=== PATIENT | male | born 1955 | race Two or more races ===

== ENCOUNTER 2016-05-04 14:26 | Observation (INO) | payer BC ==
[2016-05-04 14:34] VITALS: BMI 37.3
--- NOTE | 2016-05-04 15:40 | PDOC ---
History of Present Illness - General History Source: Patient Exam Limitations: No Limitations - History of Present Illness Initial Comments: 05/04/16 16:20 Mr. Grijalva is a 60 y/o male with a PMH of HTN, BPH, and chronic back pain presenting to the ED today from his PCP's office complaining of atypical Chest Pain and dizziness that occurred this morning. Pt. states that at approximately 10:00 he felt dizzy and light headed almost to the point of syncope. He had associated right sided chest pain with this episode. This has never happened to him before. Pt. states that he had a stress test approximately 2 years ago and was 'normal' at that time. Admits to reproducible chest pain with coughing or palpation. Denies LOC, falling, head, neck, back pain. He denies fevers, chills , palpitations, edema, cough, SOB, dyspnea, N/V/D. He has not traveled recently and received his flu shot this year. 05/04/16 18:31 <Nicolasa Mario - Last Filed: 05/04/16 19:02> <Cass Mendes - Last Filed: 05/05/16 19:21> - General Chief Complaint: Chest Pain Stated Complaint: CHEST PAIN, LIGHTHEADED (PCP SENT) Time Seen by Provider: 05/04/16 15:11 Past History - Travel Traveled outside of the country in the last 30 days: No - Past Medical History HTN: Yes Kidney Stones: No (polycystic kidney disea) - Immunization History Immunization Up to Date: No - Psycho/Social/Smoking Cessation Hx Anxiety: No Suicidal Ideation: No Smoking History: Never smoked Have you smoked in the past 12 months: Yes Number of Cigarettes Smoked Daily: 1 Cigars Per Day: 1 Information on smoking cessation initiated: Yes 'Breaking Loose' booklet given: 05/04/16 Hx Alcohol Use: No Drug/Substance Use Hx: No Substance Use Type: None <Nicolasa Mario - Last Filed: 05/04/16 19:02> <Cass Mendes - Last Filed: 05/05/16 19:21> - Past Medical History Allergies/Adverse Reactions: Allergies Allergy/AdvReac Type Severity Reaction Status Date / Time Iodine and Iodide Containing Allergy Verified 08/23/15 18:18 Produc Penicillins Allergy Verified 08/23/15 18:18 Home Medications: Ambulatory Orders Hydrochlorothiazide 25 mg PO DAILY 08/22/15 Lisinopril 5 mg PO DAILY 08/22/15 Potassium Chloride 20 meq PO DAILY 08/22/15 Propranolol HCl 10 mg PO BID 08/22/15 Docusate Sodium [Colace -] 100 mg PO DAILY #30 capsule 08/23/15 Oxybutynin Chloride [Ditropan -] 5 mg PO DAILY 08/23/15 Acetaminophen [Tylenol .Regular Strength -] 325 mg PO Q4H PRN #0 tablet Aspirin [ASA -] 81 mg PO DAILY #30 tab.chew 05/05/16 Atorvastatin Ca [Lipitor] 10 mg PO HS #30 tablet 05/05/16 Methocarbamol [Robaxin -] 1,000 mg PO QID tablet 05/05/16 Oxycodone HCl [Roxicodone -] 5 mg PO Q4H PRN #0 tablet MDD 6 05/05/16 *Physical Exam - Vital Signs Last Vital Signs Temp Pulse Resp BP Pulse Ox 97.7 F 64 18 132/76 100 05/04/16 14:30 05/04/16 14:30 05/04/16 14:30 05/04/16 14:30 05/04/16 14:30 - Physical Exam Comments: 05/04/16 16:32 General Appearance: 60 y/o male AAOx4 in NAD sitting on hospital bed breathing easy. HEENT: positive: EOMI, WILL Neck: positive: Supple Respiratory/Chest: positive: Lungs Clear, Normal Breath Sounds. negative: Rales , Rhonchi, Wheezing Cardiovascular: positive: Regular Rhythm, Regular Rate, S1, S2. negative: Edema , Murmur Gastrointestinal/Abdominal: positive: Normal Bowel Sounds, Flat, Soft Extremity: positive: Normal Inspection. negative: Calf Tenderness Integumentary: positive: Normal Color, Dry, Warm Neurologic: positive: equipment specialist II-XII NML intact, Fully Oriented, Alert <Nicolasa Mario - Last Filed: 05/04/16 19:02> - Vital Signs Last Vital Signs Temp Pulse Resp BP Pulse Ox 97.7 F 64 18 132/76 100 05/04/16 14:30 05/04/16 14:30 05/04/16 14:30 05/04/16 14:30 05/04/16 14:30 <Cass Mendes - Last Filed: 05/05/16 19:21> Heart Score/ECG Review - History History: Slightly suspicious - Electrocardiogram EKG: Normal - Age Age: 45-65 - Risk Factors Risk Factors Heart Score: Yes Hx Hypertension, Yes Hx Obesity Based on the list above the patient has:: 1-2 risk factors - Troponin Troponin: </= normal limit - Score Heart Score - Total: 2 <Nicolasa Mario - Last Filed: 05/04/16 19:02> ED Treatment Course - LABORATORY CBC & Chemistry Diagram: 05/04/16 16:38 05/04/16 16:30 <Nicolasa Mario - Last Filed: 05/04/16 19:02> - LABORATORY CBC & Chemistry Diagram: 05/05/16 05:45 05/05/16 05:45 - ADDITIONAL ORDERS Additional order review: Laboratory Results 05/04/16 16:30 Sodium 139 Potassium 3.8 Chloride 104 Carbon Dioxide 25 Anion Gap 10 BUN 22 H Creatinine 1.2 Creat Clearance w eGFR > 60 Random Glucose 76 Calcium 9.4 Total Bilirubin 0.9 AST 20 ALT 22 Alkaline Phosphatase 46 Creatine Kinase 204 Creatine Kinase Index 0.9 CK-MB (CK-2) 1.935 Troponin I < 0.02 Total Protein 7.7 Albumin 3.7 05/04/16 16:38 RBC 4.59 MCV 95.8 MCHC 34.6 RDW 13.8 MPV 8.0 Neutrophils % 50.1 Lymphocytes % 41.0 H Monocytes % 6.9 Eosinophils % 1.6 Basophils % 0.4 <Cass Mendes - Last Filed: 05/05/16 19:21> Medical Decision Making - Medical Decision Making 05/04/16 16:36 Pt is a 60 y/o male presenting with a near syncopal episode and chest pain 1. Will order Cardiac Panel CXR and EKG to r/o ACS 2. Order basic labs to look for electrolyte imbalances 3. Will consult cardiology re-evaluate 05/04/16 17:58 EKG reviewed: NSR, rate of [address]-T changes. 05/04/16 18:[address] Butts and discussed the case. Would like patient admitted for Obs over night. Will see patient in the morning <Nicolasa Mario - Last Filed: 05/04/16 19:02> *DC/Admit/Observation/Transfer - Discharge Dispostion Admit: Yes <Nicolasa Mario - Last Filed: 05/04/16 19:02> - Discharge Dispostion Admit: Yes - Attestations Physician Attestion: I reviewed the case with the mid-level practitioner and agree with the mid- level practitioner's assessment, diagnosis and disposition. <Cass Mendes - Last Filed: 05/05/16 19:21> Diagnosis at time of Disposition: Chest pain Qualifiers: Chest pain type: unspecified Qualified Code(s): R07.9 - Chest pain, unspecified - Discharge Dispostion Disposition: HOME Condition at time of disposition: Stable - Prescriptions - Referrals
[2016-05-04 17:06] LABS: BASOPHIL 0.4 % (0-2.0); EOSINOPHIL 1.6 % (0-4.5); MCH 33.1 pg (25.7-33.7); MCHC 34.6 g/dl (32.0-35.9); MEAN CELL VOLUME 95.8 fl (80-96); NEUTROPHILS 50.1 % (42.8-82.8); PLATELET COUNT 241 K/MM3 (134-434); RDW 13.8 % (11.9-15.9)
[2016-05-04 17:24] LABS: ALBUMIN 3.7 g/dl (3.4-5.0); ANION GAP 10 (8-16); BILIRUBIN,TOTAL 0.9 mg/dL (0.2-1.0); CALCIUM 9.4 mg/dL (8.5-10.1); CO2 25 mmol/L (21-32); CREATININE 1.2 mg/dL (0.7-1.3); GLUCOSE,RANDOM 76 mg/dL (74-106); SGOT/AST 20 U/L (15-37); SGPT/ALT 22 U/L (12-78); TOT PROT 7.7 g/dl (6.4-8.2)
[2016-05-04 17:26] LABS: ALK PHOS 46 U/L (45-117); TROPONIN I < 0.02 ng/ml (0.00-0.05)
[2016-05-04] MEDS ORDERED: OXYCODONE/APAP 5/325MG COMBO TABLET PO SCH (21:15)
[2016-05-04] MEDS ORDERED: ACETAMINOPHEN 325 MG TABLET (FP) PO PRN (21:16)
[2016-05-04] MEDS ORDERED: oxyCODONE HCL 5 MG TABLET PO PRN (21:16)
[2016-05-04] MEDS ORDERED: POTASSIUM CHLORIDE TABS 20 MEQ TABLET.ER (FP) PO SCH (22:00)
[2016-05-04] MEDS ORDERED: PROPRANOLOL HCL 10 MG TABLET (FP) PO SCH (22:00)
[2016-05-04] MEDS: HEPARIN NA (PORCINE) 5,000 UNITS/ML 1ML VIAL SQ SCH (22:30)
[2016-05-04] MEDS: ASPIRIN 81 MG CHEWABLE TABLETS PO SCH (22:30)
[2016-05-04] MEDS: METHOCARBAMOL 500 MG TABLET PO SCH (22:32)
[2016-05-05 07:54] LABS: BASOPHIL 0.6 % (0-2.0); EOSINOPHIL 2.1 % (0-4.5); MCH 33.6 pg (25.7-33.7); MCHC 34.8 g/dl (32.0-35.9); MEAN CELL VOLUME 96.4 fl (80-96); MEAN PLT VOLUME 7.9 fl (7.5-11.1); NEUTROPHILS 52.8 % (42.8-82.8); PLATELET COUNT 210 K/MM3 (134-434); RDW 13.3 % (11.9-15.9); WHITE BLOOD COUNT 6.7 K/mm3 (4.0-10.0)
[2016-05-05 08:42] LABS: CHOLESTEROL 155 mg/dL (50-200); LDL CHOLESTEROL (ONLY SJRH) 98 mg/dL (5-100)
--- NOTE | 2016-05-05 08:46 | CON.CARD ---
Consult Consult Specialty:: cardio Referred by:: della monson Reason for Consultation:: presyncope, cp - History of Present Illness Chief Complaint: same History of Present Illness: 60 yo male presented with presyncope and atyp cp. pt has long h/o both these sx's, as well as chronic anxiety which confounds them. he has had episodes of dizzy/LH over the years, worse in hot months, with ER visits where was dehydrated. drinks little fluids due to freq urination sx's. yest same, cup of tea in am with total of 10 oz or so of water by 730 am when arrived at work. felt LH from time he got up in am, then worse when standing and walking around his job site--presyncopal, no syncope. shortly after that began feeling localized (one finger) muscle type pain/ soreness R upper pectoral (has had this for years) and central chest tightness bilat pectoral muscles to sternum. the latter he has also had intermittently for many yrs (including prior to 2013 normal stress test in our office), severe at times when had panic attacks, but of late only milder when anxious. he notes he felt very anxious about his heart when he started feeling LH yesterday. cp no radiation, no assctd sob. never has cp when exerts himself incl on stairs at work. feels mild sob on many stairs sometimes--chronic sx worse when heavy, improved when lost wt. PMH: HTN, BPH, and chronic back pain - Alcohol/Substance Use Hx Alcohol Use: No - Smoking History Smoking history: Never smoked Have you smoked in the past 12 months: Yes Aproximately how many cigarettes per day: 1 Home Medications - Allergies Allergies/Adverse Reactions: Allergies Allergy/AdvReac Type Severity Reaction Status Date / Time Iodine and Iodide Containing Allergy Verified 08/23/15 18:18 Produc Penicillins Allergy Verified 08/23/15 18:18 - Home Medications Home Medications: Ambulatory Orders Hydrochlorothiazide 25 mg PO DAILY 08/22/15 Lisinopril 5 mg PO DAILY 08/22/15 Potassium Chloride 20 meq PO DAILY 08/22/15 Propranolol HCl 10 mg PO BID 08/22/15 Docusate Sodium [Colace -] 100 mg PO DAILY #30 capsule 08/23/15 Oxybutynin Chloride [Ditropan -] 5 mg PO DAILY 08/23/15 Acetaminophen [Tylenol .Regular Strength -] 325 mg PO Q4H PRN #0 tablet Aspirin [ASA -] 81 mg PO DAILY #30 tab.chew 05/05/16 Atorvastatin Ca [Lipitor] 10 mg PO HS #30 tablet 05/05/16 Methocarbamol [Robaxin -] 1,000 mg PO QID tablet 05/05/16 Oxycodone HCl [Roxicodone -] 5 mg PO Q4H PRN #0 tablet MDD 6 05/05/16 Family Disease History - Family Disease History Family History: Denies (no cmp) Review of Systems - Review of Systems Constitutional: denies: Chills, Fever Eyes: denies: Eye Pain HENT: denies: Nasal Congestion Neck: denies: Stiffness Cardiovascular: denies: Palpitations Respiratory: denies: Orthopnea, PND Gastrointestinal: denies: Diarrhea, Rectal Bleeding Genitourinary: denies: Burning, Hematuria Musculoskeletal: denies: Muscle Pain Integumentary: denies: Rash Neurological: denies: Numbness, Seizure, Syncope Endocrine: denies: Excessive Sweating Hematology/Lymphatic: denies: Excessive Bleeding Vital Signs: Vital Signs Temperature 97.8 F 05/05/16 06:00 Pulse Rate 50 L 05/05/16 06:00 Respiratory Rate 20 05/05/16 06:00 Blood Pressure 108/67 05/05/16 06:00 O2 Sat by Pulse Oximetry (%) 97 05/04/16 22:34 Constitutional: Yes: No Distress, Obese Eyes: No: Sclera Icterus HENT: No: Nasal Congestion Neck: No: Decreased ROM Respiratory: Yes: CTA Bilaterally. No: Accessory Muscle Use, Rales, Wheezes Gastrointestinal: Yes: Normal Bowel Sounds. No: Distention, Hepatomegaly, Palpable Mass, Tenderness Cardiovascular: Yes: Regular Rate and Rhythm JVD: No Carotid Bruit: No PMI: Non-Displaced Heart Sounds: Yes: S1, S2. No: Gallop Murmur: No: Systolic Murmur, Diastolic Murmur Musculoskeletal: Yes: Other (No kyphosis) Extremities: No: Cold, Cyanosis Edema: No Peripheral Pulses: 2+ Left Carotid, 2+ Right Carotid, 2+ Left Doralis Pedis, 2+ Right Dorsalis Pedis Integumentary: No: Jaundice Neurological: Yes: Alert, Oriented (x3) Psychiatric: No: Agitated - Other Data Labs, Other Data: CBC, BMP 05/05/16 05:45 Troponin, BNP 05/04/16 22:01 Troponin I < 0.02 Troponin, BNP 05/04/16 22:01 Troponin I < 0.02 Laboratory Tests 05/04/16 05/04/16 05/05/16 16:30 22:01 05:45 WBC 6.7 Hgb 14.2 Plt Count 210 Sodium 139 Potassium 3.8 Carbon Dioxide 25 BUN 22 H Creatinine 1.2 AST 20 ALT 22 Troponin I < 0.02 < 0.02 ekg: NSR, WNL telem: NSR with sinus carmen to 40s at times during overnight/early am hours Imaging - Results Chest X-ray: Image Reviewed (my read: normal CMS, clear lungs/pleura, no vasc congestion (report pending)) Assessment/Plan MPI 2013 (monique): 6:28min exercise, sub-target HR so converted to pharmacologic; no STs; no ischemia; nl EF Echo 2013: nl LV/EF; mild LVH: nl RV; mild LAE; valves WNL Carotids 2014: minimal plq, non-obstructive ECG: NSR, normal axis/interv; no path q's; no ST-T abn presyncope: -trop neg x 2 -sx's highly likely due to intravasc vol depletion in pt with little po fluids, based on hx -likely exacerbated by thiazide--d/c -would also d/c MAURIZIO as vol depleted pts typically don't tolerate MAURIZIO well and freq dizziness -encouraged improved fluids intake sinus carmen: -HR 40s during sleeping hours likely vagal -outpt sleep study appropriate -cont propranolol for now (? also for anxiety) -monitor for ongoing dizzy sx's as outpt--doubt related to inappr carmen (and will have outpt treadmill test to r/o chronotropic incompetence) but can consider prolonged event monitor if sx's continue atypical CP: -longstanding h/o due to anxiety in him, including had this prior to and during time of when had normal stress test 2013 -yest sx's identical to priors per pt report, incl triggered by anxiety -low risk based on history and ecg/enzymes -rec outpt stress echo and f/u with me in office CAD: -coronary calcifications reported on 2014 CT scan -ecg here normal -enzymes neg -no suspected angina sx's -rec add ASA and statin to regimen for primary prevention HTN: -well controlled on low side here -rec d/c hctz and maurizio as above -cont low dose BB--reassess bp in office
[2016-05-05 08:58] LABS: ALBUMIN 3.4 g/dl (3.4-5.0); ALK PHOS 44 U/L (45-117); ANION GAP 7 (8-16); CALCIUM 8.5 mg/dL (8.5-10.1); CO2 28 mmol/L (21-32); CREATININE 1.2 mg/dL (0.7-1.3); GLUCOSE,RANDOM 86 mg/dL (74-106); SGOT/AST 19 U/L (15-37); SGPT/ALT 21 U/L (12-78); THYROID STIMULATING HORMONE 0.83 uIU/ml (0.358-3.74)
[2016-05-05] MEDS: HEPARIN NA (PORCINE) 5,000 UNITS/ML 1ML VIAL SQ SCH (09:09)
[2016-05-05] MEDS: ASPIRIN 81 MG CHEWABLE TABLETS PO SCH (09:10)
[2016-05-05] MEDS: METHOCARBAMOL 500 MG TABLET PO SCH (09:10)
[2016-05-05] MEDS ORDERED: OXYBUTYNIN CHLORIDE 5 MG TABLET PO SCH (10:00)
[2016-05-05] MEDS ORDERED: DOCUSATE SODIUM 100 MG CAPSULE (FP) PO SCH (10:00)
[2016-05-05] MEDS ORDERED: HYDROCHLOROTHIAZIDE 25 MG TABLET (FP) PO SCH (10:00)
[2016-05-05] MEDS ORDERED: LISINOPRIL 5 MG TABLET (FP) PO SCH (10:00)
--- NOTE | 2016-05-05 10:07 | HP ---
Admitting History and Physical - Primary Care Physician PCP: Kesha Thomas - Admission Chief Complaint: chest pain History of Present Illness: Mr. Grijalva is a 60 y/o male with a PMH of HTN, BPH, and chronic back pain presenting to the ED from office ---send by Dr. Bolton for complaining of atypical Chest Pain and dizziness that occurred this morning. Pt. states that at approximately 10:00 he felt dizzy and light headed almost to the point of syncope. He had associated right sided chest pain with this episode. This has never happened to him before. Pt. states that he had a stress test approximately 2 years ago and was 'normal' at that time. Admits to reproducible chest pain with coughing or palpation. Denies LOC, falling, head, neck, back pain. He denies fevers, chills, palpitations, edema, cough, SOB, dyspnea, N/V/D. EkG ---ok. Pt admitted to tele for monitoring. Case was discussed with er physician last night . CT ruled out. Pt seen today - feels well. denies pain no sob. no h/dizziness no fever/ chills. no u/b trouble. History Source: Patient Limitations to Obtaining History: No Limitations - Past Medical History Cardiovascular: Yes: HTN Renal/: Yes: BPH Musculoskeletal: Yes: Chronic low back pain - Smoking History Smoking history: Never smoked Have you smoked in the past 12 months: Yes Aproximately how many cigarettes per day: 1 - Alcohol/Substance Use Hx Alcohol Use: No Home Medications - Allergies Allergies/Adverse Reactions: Allergies Allergy/AdvReac Type Severity Reaction Status Date / Time Iodine and Iodide Containing Allergy Verified 08/23/15 18:18 Produc Penicillins Allergy Verified 08/23/15 18:18 - Home Medications Home Medications: Ambulatory Orders Hydrochlorothiazide 25 mg PO DAILY 08/22/15 Lisinopril 5 mg PO DAILY 08/22/15 Potassium Chloride 20 meq PO DAILY 08/22/15 Propranolol HCl 10 mg PO BID 08/22/15 Docusate Sodium [Colace -] 100 mg PO DAILY #30 capsule 08/23/15 Oxybutynin Chloride [Ditropan -] 5 mg PO DAILY 08/23/15 Acetaminophen [Tylenol .Regular Strength -] 325 mg PO Q4H PRN #0 tablet 01/21/ 17 Aspirin [ASA -] 81 mg PO DAILY #30 tab.chew 05/05/16 Atorvastatin Ca [Lipitor] 10 mg PO HS #30 tablet 05/05/16 Methocarbamol [Robaxin -] 1,000 mg PO QID tablet 05/05/16 Oxycodone HCl [Roxicodone -] 5 mg PO Q4H PRN #0 tablet MDD 6 05/05/16 Family Disease History - Family Disease History Family History: Unremarkable Review of Systems Unable to obtain ROS, reason: see modoc Physical Examination Vital Signs: Vital Signs Temperature 97.8 F 05/05/16 06:00 Pulse Rate 50 L 05/05/16 06:00 Respiratory Rate 20 05/05/16 06:00 Blood Pressure 108/67 05/05/16 06:00 O2 Sat by Pulse Oximetry (%) 97 05/04/16 22:34 Constitutional: Yes: No Distress, Calm Eyes: Yes: Conjunctiva Clear Neck: Yes: Supple Cardiovascular: Yes: Regular Rate and Rhythm Respiratory: Yes: CTA Bilaterally Gastrointestinal: Yes: Normal Bowel Sounds, Soft Edema: No Neurological: Yes: Alert Labs: CBC, BMP 05/05/16 05:45 05/05/16 05:45 Imaging - Results Chest X-ray: Report Reviewed EKG: Report Reviewed Assessment/Plan Atypical chest pain. Mi ruled out. will d/c today. Pt started on asa/ statin per cardiology recommendation. pt to follow in office / cardiology pt in agreement with plan. Meds precribed to pharmacy.
[2016-05-05 12:01] VITALS: BP 110/57; PULSE 53; TEMP 97.9
--- NOTE | 2016-05-07 12:45 | EKG ---
Test Reason : Blood Pressure : / mmHG Vent. Rate : 060 BPM Atrial Rate : 060 BPM P-R Int : 166 ms QRS Dur : 094 ms QT Int : 428 ms P-R-T Axes : 021 -10 030 degrees QTc Int : 428 ms NORMAL SINUS RHYTHM NORMAL ECG WHEN COMPARED WITH ECG OF 30-SEP-2010 13:22, NO SIGNIFICANT CHANGE WAS FOUND Confirmed by FUNMILAYO FRAGOSO MD ([id number]) on 05/07/2016 12:44:59 PM Referred By: Confirmed By:FUNMILAYO FRAGOSO MD
== END 2016-05-05 13:37 | disposition home or self-care (01) ==
LOC: JER 14:26 → JERBED 18:34 → UNDOADMIN 18:34 → JERBED 20:21 → UNDOADMOB 20:21 → INTOOBSV 20:21 → J4W 21:16 → JERBED 21:20 → J4W 21:20
PROVIDERS: ADMIT Internal Medicine; ATTEND Internal Medicine
DX: R07.89 Other chest pain (principal); N40.0 Benign prostatic hyperplasia without lower urinary tract symptoms; I10 Essential (primary) hypertension; M54.5 Low back pain; I25.10 Atherosclerotic heart disease of native coronary artery without angina pectoris; R55 Syncope and collapse
CPT/HCPCS: 36415; 71010-TC; 80053; 80061; 82550; 82553; 83721; 84443; 84484; 85025; 93005; 93010; 99285-25; G0378; J1644

== ENCOUNTER 2018-04-04 09:13 | Observation (INO) | payer BC ==
--- NOTE | 2018-04-04 09:48 | PDOC ---
History of Present Illness - General Chief Complaint: Lightheaded Stated Complaint: LIGHTHEADED Time Seen by Provider: 04/04/18 09:46 - History of Present Illness Initial Comments: 04/04/18 09:47 62 year old man with pmhx HTN, gout, sleep apnea, BPH and chronic back pain Past History - Past Medical History Allergies/Adverse Reactions: Allergies Allergy/AdvReac Type Severity Reaction Status Date / Time Iodine and Iodide Containing Allergy Verified 04/04/18 09:19 Produc Penicillins Allergy Verified 04/04/18 09:19 Home Medications: Ambulatory Orders Allopurinol 300 mg PO DAILY 11/11/17 Aspirin [ASA -] 81 mg PO DAILY 11/11/17 Atorvastatin Ca [Lipitor] 10 mg PO HS 11/11/17 Baclofen 10 mg PO BID 11/11/17 Finasteride [Proscar -] 5 mg PO DAILY 11/11/17 Furosemide [Lasix] 40 mg PO BID 11/11/17 Lisinopril 10 mg PO DAILY 11/11/17 [place]-3 Fatty Acids/Fish Oil [Fish Oil 1,000 mg Capsule] 1,000 mg DAILY Oxybutynin Chloride 5 mg PO HS 11/11/17 Propranolol HCl 10 mg PO BID 11/11/17 Zolpidem Tartrate 10 mg PO DAILY 11/11/17 COPD: No HTN: Yes Kidney Stones: No (polycystic kidney disea) Other medical history: polycystic , large prostate - Immunization History Immunization Up to Date: No - Suicide/Smoking/Psychosocial Hx Smoking History: Never smoked Have you smoked in the past 12 months: Yes Number of Cigarettes Smoked Daily: 1 Cigars Per Day: 2 Information on smoking cessation initiated: No 'Breaking Loose' booklet given: 05/04/16 Hx Alcohol Use: No Drug/Substance Use Hx: No Substance Use Type: None *Physical Exam - Vital Signs Last Vital Signs Temp Pulse Resp BP Pulse Ox 97.6 F 50 L 20 146/79 99 04/04/18 09:15 04/04/18 09:15 04/04/18 09:15 04/04/18 09:15 04/04/18 09:15 Moderate Sedation - Procedure Monitoring Vital Signs: Procedure Monitoring Vital Signs Temperature 97.6 F 04/04/18 09:15 Pulse Rate 50 L 04/04/18 09:15 Respiratory Rate 20 04/04/18 09:15 Blood Pressure 146/79 04/04/18 09:15 O2 Sat by Pulse Oximetry (%) 99 04/04/18 09:15 *DC/Admit/Observation/Transfer - Referrals Referrals: Jumana Jacinto MD [Primary Care Provider] - - Patient Instructions - Post Discharge Activity
--- NOTE | 2018-04-04 10:09 | PDOC ---
History of Present Illness - General Chief Complaint: Lightheaded Stated Complaint: LIGHTHEADED Time Seen by Provider: 04/04/18 09:46 History Source: Patient Exam Limitations: No Limitations - History of Present Illness Initial Comments: 04/04/18 10:24 62 yo M with hx of HTN, gout, and polycystic kidney disease (followed by Dr. Kalina Mcgraw, last CT head 1 year ago) presents to the emergency department with lightheadedness after accidental double dose ingestion of his lasix ( normal dose 40 mg, took 80 mg) at 7:30 am this morning. Per the patient, he did not take his lasix yesterday and left the pill next to his morning pill cup and subsequently ingested it along with his usual dose of medications (includes propanolol). 30 minutes later, he became lightheaded, "jittery", left sided headache, and had a near syncopal episode. Denies LOC or head trauma. He states he currently feels much better. Prior to his presentation, he checked his HR and it was 38-42 bpm and normally runs in the 50-60s, but denies double dose of beta blockers. Denies the following: fever, chills, nausea, vomiting, ears/nose/ throat pain, visual changes, SOB, chest pain, abdominal pain, dysuria, hematuria , diarrhea, hematochezia, and leg pain. Denies recent travels, hx of DVT/PE, recent surgeries and immobilizations, and hormone use. Pmhx: Refer to above Shx: None Meds: furosemide, allopurinol, finesteride, lipitor, propanolol Allergies: PCN (hives) and IV contrast (hives) Social: Denies tobacco, alcohol, and substance abuse. Past History - Past Medical History Allergies/Adverse Reactions: Allergies Allergy/AdvReac Type Severity Reaction Status Date / Time Iodine and Iodide Containing Allergy Verified 04/04/18 09:19 Produc Penicillins Allergy Verified 04/04/18 09:19 Home Medications: Ambulatory Orders Allopurinol 300 mg PO DAILY 11/11/17 Aspirin [ASA -] 81 mg PO DAILY 11/11/17 Atorvastatin Ca [Lipitor] 10 mg PO HS 11/11/17 Baclofen 10 mg PO BID 11/11/17 Finasteride [Proscar -] 5 mg PO DAILY 11/11/17 Furosemide [Lasix] 40 mg PO BID 11/11/17 Lisinopril 10 mg PO DAILY 11/11/17 [place]-3 Fatty Acids/Fish Oil [Fish Oil 1,000 mg Capsule] 1,000 mg DAILY Oxybutynin Chloride 5 mg PO HS 11/11/17 Propranolol HCl 10 mg PO BID 11/11/17 Zolpidem Tartrate 10 mg PO DAILY 11/11/17 COPD: No HTN: Yes Kidney Stones: No (polycystic kidney disea) Other medical history: polycystic , large prostate - Immunization History Immunization Up to Date: No - Suicide/Smoking/Psychosocial Hx Smoking History: Never smoked Have you smoked in the past 12 months: Yes Number of Cigarettes Smoked Daily: 1 Cigars Per Day: 2 Information on smoking cessation initiated: No 'Breaking Loose' booklet given: 05/04/16 Hx Alcohol Use: No Drug/Substance Use Hx: No Substance Use Type: None Review of Systems - Review of Systems Able to Perform ROS?: Yes Is the patient limited Tanzanian proficient: No Constitutional: No: Chills, Diaphoresis, Fever, Weakness HEENTM: No: Eye Pain, Recent change in vision, Ear Pain, Nose Pain, Throat Pain , Mouth Pain Respiratory: No: Cough, Shortness of Breath, Hemoptysis Cardiac (ROS): Yes: Lightheadedness. No: Chest Pain, Palpitations, Syncope, Chest Tightness ABD/GI: Yes: Poor Fluid Intake. No: Constipated, Diarrhea, Nausea, Poor Appetite, Rectal Bleeding, Vomiting, Tarry Stools : No: Burning, Dysuria, Hematuria, Urgency Musculoskeletal: No: Back Pain, Joint Pain, Neck Pain Integumentary: No: Bruising, Lesions, Lumps, Rash Neurological: No: Headache, Numbness, Tremors, Weakness, Ataxia, Dizziness Psychiatric: No: Stressors Endocrine: No: Unexplained Weight Gain Hematologic/Lymphatic: No: Anemia *Physical Exam - Vital Signs Last Vital Signs Temp Pulse Resp BP Pulse Ox 97.6 F 50 L 20 146/79 99 04/04/18 09:15 04/04/18 09:15 04/04/18 09:15 04/04/18 09:15 04/04/18 09:15 - Physical Exam General Appearance: Yes: Nourished, Appropriately Dressed. No: Apparent Distress, Intoxicated HEENT: positive: EOMI, WILL, Normal ENT Inspection, Normal Voice, Symmetrical, TMs Normal, Pharynx Normal, Hearing Grossly Normal. negative: Pale Conjunctivae , Scleral Icterus (R), Scleral Icterus (L), Muffled/Hoarse voice, Pharyngeal Erythema, Tonsillar Exudate, Tonsillar Erythema, Nasal Congestion, Excessive drooling Neck: positive: Trachea midline. negative: Tender, Lymphadenopathy (R), Lymphadenopathy (L), Tender lateral, Tender midline Respiratory/Chest: positive: Lungs Clear, Normal Breath Sounds. negative: Chest Tender, Respiratory Distress, Accessory Muscle Use, Crackles, Rales, Rhonchi, Stridor, Wheezing, Hyperresonant Cardiovascular: positive: Regular Rhythm, S1, S2, Bradycardia. negative: Systolic Murmur Gastrointestinal/Abdominal: positive: Normal Bowel Sounds, Flat, Soft. negative : Tender, Distended, Rebound, Hernia Lymphatic: negative: Adenopathy Musculoskeletal: positive: Normal Inspection. negative: CVA Tenderness, Vertebral Tenderness Extremity: positive: Normal Capillary Refill, Normal Inspection, Normal Range of Motion. negative: Tender Integumentary: positive: Normal Color, Dry, Warm Neurologic: positive: cognos tm1 developer II-XII NML intact, Fully Oriented, Alert, Normal Mood/ Affect, Normal Response, Motor Strength 5/5. negative: EOM Palsy, Sensory Deficit Moderate Sedation - Procedure Monitoring Vital Signs: Procedure Monitoring Vital Signs Temperature 97.6 F 04/04/18 09:15 Pulse Rate 50 L 04/04/18 09:15 Respiratory Rate 20 04/04/18 09:15 Blood Pressure 146/79 04/04/18 09:15 O2 Sat by Pulse Oximetry (%) 99 04/04/18 09:15 Heart Score/ECG Review - ECG Intrepretation Comment:: 04/04/18 11:14 ventricular rate is 46 pm, [place] is 182 ms, QRS duration is 96 ms, and QTc is 400 ms. Sinus carmen without ST elevations or depressions, ED Treatment Course - LABORATORY CBC & Chemistry Diagram: 04/04/18 10:30 04/04/18 10:30 Medical Decision Making - Medical Decision Making 04/04/18 11:18 62 yo M with hx of HTN, gout, and polycystic kidney disease (followed by Dr. Kalina Mcgraw, last CT head 1 year ago) presents to the emergency department with lightheadedness after accidental double dose ingestion of his lasix ( normal dose 40 mg, took 80 mg) at 7:30 am this morning. Initial vitals: Initial Vital Signs Temp Pulse Resp BP Pulse Ox 97.6 F 50 L 20 146/79 99 04/04/18 09:15 04/04/18 09:15 04/04/18 09:15 04/04/18 09:15 04/04/18 09:15 Work up: ddx: near syncopal event (Cardiogenic vs metabolic disturbance vs infectious etiology vs vasovagal vs medication inducing) likely cardiogenic given he had heart rate in the high 30s at home with symptoms. *DC/Admit/Observation/Transfer - Referrals Referrals: Jumana Jacinto MD [Primary Care Provider] - - Patient Instructions - Post Discharge Activity
[2018-04-04 10:37] LABS: BASO % 0.7 % (0-2.0); HEMATOCRIT 41.2 % (35.4-49); HEMOGLOBIN 14.4 GM/dL (11.7-16.9); LYMPH % 24.2 % (8-40); MCH 33.4 pg (25.7-33.7); MCHC 34.8 g/dl (32.0-35.9); MEAN CELL VOLUME 95.8 fl (80-96); MEAN PLT VOLUME 8.1 fl (7.5-11.1); MONO % 7.6 % (3.8-10.2); NEUT % 65.5 % (42.8-82.8); PLATELET COUNT 244 K/MM3 (134-434); RDW 14.2 % (11.9-15.9); WHITE BLOOD COUNT 7.1 K/mm3 (4.0-10.0)
--- NOTE | 2018-04-04 11:22 | PDOC ---
Attending Attestation - Resident Resident Name: JoseParrish - ED Attending Attestation I have performed the following: I have examined & evaluated the patient, The case was reviewed & discussed with the resident, I agree w/resident's findings & plan, Exceptions are as noted - HPI HPI: 04/04/18 11:22 Mr Grijalva is a 62 yo M with hx of HTN, gout, and polycystic kidney disease who presents to the emergency department with lightheadedness after accidental ingestion of a second dose of his lasix (totaling 80mg po this morning) Approximately 30 minutes later, he became lightheaded, "jittery", and c/o left sided headache, and had a near syncopal episode. He did not actually syncopize No chest pain, no palpitations, no shortness of breath, no lower extremity edema Currently feels better - Physicial Exam PE: 04/04/18 11:28 GENERAL: The patient is in no acute distress. HEAD: Normal with no signs of trauma. EYES: PERRLA, EOMI ENT: Ears normal, nares patent, oropharynx clear without exudates. Moist mucous membranes. NECK: Normal range of motion, supple LUNGS: Breath sounds equal, clear to auscultation bilaterally. HEART:Regular rate and rhythm, normal S1 and S2 without murmur, rub or gallop. ABDOMEN: Soft, nontender EXTREMITIES: Normal range of motion, no edema. NEUROLOGICAL: Cranial nerves II through XII grossly intact. Normal speech. No focal neurological deficits. SKIN: Warm, Dry, normal turgor, no rashes or lesions noted. - Medical Decision Making 04/04/18 11:35 62 yo M presenting with lightheadedness No chest pain EKG - Twelve-lead EKG was performed and reviewed by me. There is normal sinus rhythm with a bradycardiac rate 46bpm. The axis is normal. The intervals are normal. There are no ST or T wave abnormalities. Will do: Labs Contact PMD Place on observation 04/04/18 11:38 Laboratory Tests 04/04/18 04/04/18 10:30 10:30 WBC 7.1 Hgb 14.4 Hct 41.2 Plt Count 244 BUN 30 H Creatinine 1.3 Creatine Kinase 347 H Troponin I < 0.02 B-Natriuretic Peptide 64.0 TSH 0.91 D 04/04/18 13:35 CXR nml *DC/Admit/Observation/Transfer Diagnosis at time of Disposition: Pre-syncope, Bradycardia - Discharge Dispostion Condition at time of disposition: Stable Decision to Admit order: Yes - Referrals Referrals: Jumana Jacinto MD [Primary Care Provider] - - Patient Instructions - Post Discharge Activity
--- NOTE | 2018-04-04 11:24 | EKG ---
Test Reason : Blood Pressure : / mmHG Vent. Rate : 046 BPM Atrial Rate : 046 BPM P-R Int : 182 ms QRS Dur : 096 ms QT Int : 458 ms P-R-T Axes : 061 -16 017 degrees QTc Int : 400 ms POOR DATA QUALITY, INTERPRETATION MAY BE ADVERSELY AFFECTED SINUS BRADYCARDIA MINIMAL VOLTAGE CRITERIA FOR LVH, MAY BE NORMAL VARIANT BORDERLINE ECG WHEN COMPARED WITH ECG OF 04-MAY-2016 16:52, NO SIGNIFICANT CHANGE WAS FOUND Confirmed by TAVARES KEARNEY MD ([id number]) on 04/04/2018 11:24:39 AM Referred By: Confirmed By:TAVARES KEARNEY MD
[2018-04-04 11:29] LABS: ALBUMIN 3.7 g/dl (3.4-5.0); ALK PHOS 46 U/L (45-117); ANION GAP 6 MMOL/L (8-16); BILIRUBIN,TOTAL 0.8 mg/dL (0.2-1); BLOOD UREA NITROGEN 30 mg/dL (7-18); CALCIUM 8.5 mg/dL (8.5-10.1); CHLORIDE 106 mmol/L (98-107); CO2 25 mmol/L (21-32); CREATININE 1.3 mg/dL (0.55-1.3); GLUCOSE,RANDOM 88 mg/dL (74-106); SGOT/AST 27 U/L (15-37); SGPT/ALT 34 U/L (13-61); SODIUM 137 mmol/L (136-145); TOT PROT 7.5 g/dl (6.4-8.2)
[2018-04-04 11:51] LABS: URINE APPEARANCE CLEAR; URINE BILIRUBIN NEGATIVE (<2.0 mg/dL); URINE COLOR STRAW; URINE GLUCOSE (UA) NEGATIVE (NEGATIVE); URINE KETONE NEGATIVE (NEGATIVE); URINE LEUK ESTERASE NEGATIVE (NEGATIVE); URINE NITRITE NEGATIVE (NEGATIVE); URINE PROTEIN NEGATIVE (NEGATIVE); URINE UROBILINOGEN NEGATIVE mg/dL (0.2-1.0)
[2018-04-04] MEDS ORDERED: SODIUM CHLORIDE 1,000 ML IV STA (12:37)
[2018-04-04] MEDS ORDERED: ZOLPIDEM TARTRATE 5 MG TABLET PO PRN (14:22)
--- NOTE | 2018-04-04 14:58 | HP ---
Admitting History and Physical - Primary Care Physician PCP: Jumana Jacinto - Admission Chief Complaint: dizziness History of Present Illness: ER history 04/04/18 10:24 62 yo M with hx of HTN, gout, and polycystic kidney disease (followed by Dr. Kalina Mcgraw, last CT head 1 year ago) presents to the emergency department with lightheadedness after accidental double dose ingestion of his lasix ( normal dose 40 mg, took 80 mg) at 7:30 am this morning. Per the patient, he did not take his lasix yesterday and left the pill next to his morning pill cup and subsequently ingested it along with his usual dose of medications (includes propanolol). 30 minutes later, he became lightheaded, "jittery", left sided headache, and had a near syncopal episode. Denies LOC or head trauma. He states he currently feels much better. Prior to his presentation, he checked his HR and it was 38-42 bpm and normally runs in the 50-60s, but denies double dose of beta blockers. Denies the following: fever, chills, nausea, vomiting, ears/nose/ throat pain, visual changes, SOB, chest pain, abdominal pain, dysuria, hematuria , diarrhea, hematochezia, and leg pain. Denies recent travels, hx of DVT/PE, recent surgeries and immobilizations, and hormone use. Pmhx: Refer to above Shx: None Meds: furosemide, allopurinol, finesteride, lipitor, propanolol Allergies: PCN (hives) and IV contrast (hives) Social: Denies tobacco, alcohol, and substance abuse. Pt examined by me in the ER Feels better no dizziness no chest pain or SOB admits he took two tabs of Lasix 40mg by mistake denies taking two tabs of propranolol History Source: Patient Limitations to Obtaining History: No Limitations - Past Medical History Cardiovascular: Yes: HTN Renal/: Yes: BPH Musculoskeletal: Yes: Chronic low back pain - Smoking History Smoking history: Never smoked Have you smoked in the past 12 months: Yes Aproximately how many cigarettes per day: 1 - Alcohol/Substance Use Hx Alcohol Use: No Home Medications - Allergies Allergies/Adverse Reactions: Allergies Allergy/AdvReac Type Severity Reaction Status Date / Time Iodine and Iodide Containing Allergy Verified 12/21/18 09:19 Produc Penicillins Allergy Verified 04/04/18 09:19 - Home Medications Home Medications: Ambulatory Orders Allopurinol 300 mg PO DAILY 11/11/17 Aspirin [ASA -] 81 mg PO DAILY 11/11/17 Atorvastatin Ca [Lipitor] 10 mg PO HS 11/11/17 Finasteride [Proscar -] 5 mg PO HS 11/11/17 Furosemide [Lasix] 40 mg PO DAILY 11/11/17 Lisinopril 10 mg PO DAILY 11/11/17 [place]-3 Fatty Acids/Fish Oil [Fish Oil 1,000 mg Capsule] 1,000 mg DAILY Oxybutynin Chloride 5 mg PO HS 11/11/17 Propranolol HCl 10 mg PO BID 11/11/17 Zolpidem Tartrate 10 mg PO PRN 11/11/17 Review of Systems - Review of Systems Constitutional: denies: Chills, Fever Cardiovascular: denies: Chest Pain, Palpitations, Shortness of Breath Neurological: reports: Dizziness Physical Examination Vital Signs: Vital Signs Temperature 97.8 F 04/04/18 12:47 Pulse Rate 48 L 04/04/18 12:47 Respiratory Rate 17 04/04/18 12:47 Blood Pressure 135/90 04/04/18 12:47 O2 Sat by Pulse Oximetry (%) 99 04/04/18 12:47 Constitutional: Yes: No Distress, Calm Cardiovascular: Yes: Regular Rate and Rhythm Respiratory: Yes: CTA Bilaterally Gastrointestinal: Yes: Normal Bowel Sounds, Soft, Abdomen, Obese. No: Tenderness Edema: No Labs: CBC, BMP 04/04/18 10:30 04/04/18 10:30 Imaging - Results Chest X-ray: Image Reviewed (clear) EKG: Report Reviewed (sinus bradycardia) Problem List - Problems (1) HTN (hypertension) Code(s): I10 - ESSENTIAL (PRIMARY) HYPERTENSION (2) Bradycardia Code(s): R00.1 - BRADYCARDIA, UNSPECIFIED (3) Pre-syncope Code(s): R55 - SYNCOPE AND COLLAPSE Assessment/Plan PLAN admit for observation labs noted check TSH Cardiology eval hold off Propranolol for now-- BP is acceptable, may not need it for now continue with meds
--- NOTE | 2018-04-04 15:37 | CON.CARD ---
Consult Consult Specialty:: Cardiology Referred by:: Lucien Reason for Consultation:: presyncope, bradycardia - History of Present Illness Chief Complaint: presyncope History of Present Illness: 62M h/o HTN, gout, polycystic kidney disease p/w lightheadedness after taking a second dose of lasix (total 80 mg PO this morning, usually takes 20), felt lightheaded, jittery, did not lose consciousness. Checked his BP at the time, he thinks he was normal but his HR was low in the 30s-40s. No chest pain, palps , syncope, diaphoresis, dyspnea, orthopnea, edema. Sees Dr. Butts for cardio - Past Medical History Cardio/Vascular: Yes: HTN Renal/: Yes: BPH Musculoskeletal: Yes: Chronic low back pain - Alcohol/Substance Use Hx Alcohol Use: No - Smoking History Smoking history: Never smoked Have you smoked in the past 12 months: Yes Aproximately how many cigarettes per day: 1 Home Medications - Allergies Allergies/Adverse Reactions: Allergies Allergy/AdvReac Type Severity Reaction Status Date / Time Iodine and Iodide Containing Allergy Verified 04/04/18 09:19 Produc Penicillins Allergy Verified 04/04/18 09:19 - Home Medications Home Medications: Ambulatory Orders Allopurinol 300 mg PO DAILY 11/11/17 Aspirin [ASA -] 81 mg PO DAILY 11/11/17 Atorvastatin Ca [Lipitor] 10 mg PO HS 11/11/17 Baclofen 10 mg PO BID 11/11/17 Finasteride [Proscar -] 5 mg PO DAILY 11/11/17 Furosemide [Lasix] 40 mg PO BID 11/11/17 Lisinopril 10 mg PO DAILY 11/11/17 [place]-3 Fatty Acids/Fish Oil [Fish Oil 1,000 mg Capsule] 1,000 mg DAILY Oxybutynin Chloride 5 mg PO HS 11/11/17 Propranolol HCl 10 mg PO BID 11/11/17 Zolpidem Tartrate 10 mg PO DAILY 11/11/17 Family Disease History - Family Disease History Family History: Unremarkable Review of Systems - Review of Systems Constitutional: reports: No Symptoms Eyes: reports: No Symptoms HENT: reports: No Symptoms Neck: reports: No Symptoms Cardiovascular: reports: No Symptoms Respiratory: reports: No Symptoms Gastrointestinal: reports: No Symptoms Genitourinary: reports: No Symptoms Musculoskeletal: reports: No Symptoms Integumentary: reports: No Symptoms Neurological: reports: No Symptoms Endocrine: reports: No Symptoms Hematology/Lymphatic: reports: No Symptoms Psychiatric: reports: No Symptoms Vital Signs: Vital Signs Temperature 97.8 F 04/04/18 12:47 Pulse Rate 48 L 04/04/18 12:47 Respiratory Rate 17 04/04/18 12:47 Blood Pressure 135/90 04/04/18 12:47 O2 Sat by Pulse Oximetry (%) 99 04/04/18 12:47 - Other Data Labs, Other Data: CBC, BMP 04/04/18 10:30 04/04/18 10:30 Troponin, BNP 04/04/18 10:30 Troponin I < 0.02 B-Natriuretic Peptide 64.0 Troponin, BNP 04/04/18 10:30 Troponin I < 0.02 B-Natriuretic Peptide 64.0 Assessment/Plan EKG sinus bradycardia 46 bpm, no ischemic changes tele: sinus presyncope - likely related to taking double dose of lasix, dehydration vs vasovagal event - feels at baseline now - continue lasix 40 mg daily as prescribed Bradycardia - was on propranolol at home which has been held, likely bb effect - continue holding bb, monitor BP HTN - stable on lisinopril, holding propranolol as above
[2018-04-04] MEDS ORDERED: PATIENT'S OWN MEDICATION (NON-FORMULARY) (Zolpidem Tartrate [Zolpidem Tartrate] 10 MG) PO SCH (22:00)
[2018-04-04] MEDS ORDERED: FUROSEMIDE 40 MG TABLET (FP) PO SCH (22:00)
[2018-04-04] MEDS ORDERED: ATORVASTATIN CA 10 MG TABLET (FP) ONE (23:18)
[2018-04-04] MEDS ORDERED: BACLOFEN 10 MG TABLET (FP) ONE (23:19)
[2018-04-04] MEDS: ATORVASTATIN CA 10 MG TABLET (FP) PO SCH (23:22)
[2018-04-04] MEDS: OXYBUTYNIN CHLORIDE 5 MG TABLET PO SCH (23:22)
[2018-04-04] MEDS: BACLOFEN 10 MG TABLET (FP) PO SCH (23:22)
[2018-04-05] MEDS ORDERED: FUROSEMIDE 40 MG TABLET (FP) PO SCH (06:00)
[2018-04-05 06:09] LABS: HEMATOCRIT 41.8 % (35.4-49); MCH 32.5 pg (25.7-33.7); MCHC 33.4 g/dl (32.0-35.9); MEAN CELL VOLUME 97.2 fl (80-96); MEAN PLT VOLUME 7.9 fl (7.5-11.1); PLATELET COUNT 228 K/MM3 (134-434); RDW 14.4 % (11.9-15.9)
[2018-04-05 07:50] LABS: ALBUMIN 3.4 g/dl (3.4-5.0); ALK PHOS 45 U/L (45-117); ANION GAP 6 MMOL/L (8-16); BLOOD UREA NITROGEN 23 mg/dL (7-18); CALCIUM 8.8 mg/dL (8.5-10.1); CHLORIDE 106 mmol/L (98-107); CO2 27 mmol/L (21-32); CREATININE 1.2 mg/dL (0.55-1.3); GLUCOSE,RANDOM 100 mg/dL (74-106); POTASSIUM 4.5 mmol/L (3.5-5.1); SGOT/AST 24 U/L (15-37); SGPT/ALT 31 U/L (13-61); SODIUM 139 mmol/L (136-145); TOT PROT 7.1 g/dl (6.4-8.2)
[2018-04-05] MEDS: ASPIRIN 81 MG CHEWABLE TABLETS PO SCH (09:13)
[2018-04-05] MEDS: BACLOFEN 10 MG TABLET (FP) PO SCH ×2 (09:14→21:27)
[2018-04-05] MEDS: ALLOPURINOL 300 MG TABLET (FP) PO SCH (09:14)
[2018-04-05] MEDS: LISINOPRIL 10 MG TABLET (FP) PO SCH (09:14)
--- NOTE | 2018-04-05 13:59 | PN ---
Progress Note (short form) - Note Progress Note: pt seen/ examined chart reviewed. awake/ comfortable denies pain run of vt on monitor- had episode of tightness at that time denies cp/ sob Vital Signs Temp 98.1 F 04/05/18 09:00 Pulse 51 L 04/05/18 13:04 Resp 18 04/05/18 13:04 BP 134/83 04/05/18 13:04 Pulse Ox 98 04/05/18 13:04 Intake & Output 04/04/18 04/05/18 04/05/18 23:59 11:59 23:59 Other: Voiding Method Toilet Active Medications Allopurinol (Zyloprim -) 300 mg PO DAILY [facility] Last Admin: 04/05/18 09:14 Dose: 300 mg Aspirin (Asa -) 81 mg PO DAILY [facility] Last Admin: 04/05/18 09:13 Dose: 81 mg Atorvastatin Calcium (Lipitor -) 10 mg PO HS [facility] Last Admin: 04/04/18 23:22 Dose: 10 mg Baclofen (Lioresal -) 10 mg PO BID [facility] Last Admin: 04/05/18 09:14 Dose: Not Given Finasteride (Proscar -) 5 mg PO DAILY [facility] Lisinopril (Prinivil) 10 mg PO DAILY [facility] Last Admin: 04/05/18 09:14 Dose: 10 mg Oxybutynin Chloride (Ditropan -) 5 mg PO HS [facility] Last Admin: 04/04/18 23:22 Dose: 5 mg Zolpidem Tartrate (Ambien -) 10 mg PO HS PRN CBC, BMP 04/05/18 05:25 04/05/18 05:25 Physical Examination Constitutional: Yes: No Distress, Calm. comfortable Cardiovascular: Yes: Regular Rate and Rhythm Respiratory: Yes: CTA Bilaterally Gastrointestinal: Yes: Normal Bowel Sounds, Soft, Abdomen, Obese. No: Tenderness Edema: No Imaging - Results Chest X-ray: Image Reviewed (clear) EKG: Report Reviewed (sinus bradycardia) Problem List - Problems (1) HTN (hypertension) Code(s): I10 - ESSENTIAL (PRIMARY) HYPERTENSION (2) Bradycardia Code(s): R00.1 - BRADYCARDIA, UNSPECIFIED (3) Pre-syncope Code(s): R55 - SYNCOPE AND COLLAPSE Assessment/Plan stable monitor labs noted check mag level Cardiology to follow monitor on tele today discussed with pt/nursing staff will follow
[2018-04-05 18:01] VITALS: BMI 41.0
[2018-04-05] MEDS ORDERED: PT OWN MED DRAWER 7, Y5N ONE (18:15)
[2018-04-05] MEDS: FINASTERIDE 5 MG TABLET (FP) PO SCH (21:25)
[2018-04-05] MEDS: ATORVASTATIN CA 10 MG TABLET (FP) PO SCH (21:25)
[2018-04-05] MEDS: OXYBUTYNIN CHLORIDE 5 MG TABLET PO SCH (21:25)
[2018-04-06] MEDS ORDERED: PT OWN MED DRAWER 7, Y5N ONE ×2 (09:00→22:23)
[2018-04-06] MEDS: ALLOPURINOL 300 MG TABLET (FP) PO SCH (09:03)
[2018-04-06] MEDS: ASPIRIN 81 MG CHEWABLE TABLETS PO SCH (09:03)
[2018-04-06] MEDS: LISINOPRIL 10 MG TABLET (FP) PO SCH (09:03)
[2018-04-06] MEDS: BACLOFEN 10 MG TABLET (FP) PO SCH ×2 (09:03→22:26)
[2018-04-06] MEDS: FINASTERIDE 5 MG TABLET (FP) PO SCH (09:05)
--- NOTE | 2018-04-06 09:57 | PN ---
Progress Note (short form) - Note Progress Note: Consult Specialty:: Cardiology Referred by:: Lucien Reason for Consultation:: presyncope, bradycardia s: still feeling lightheadedness, sometimes when lying down sometimes when going from lying down to standing. no chest pain, palps, dyspnea. Current Medications Allopurinol (Zyloprim -) 300 mg PO DAILY [facility] Last Admin: 04/06/18 09:03 Dose: 300 mg Aspirin (Asa -) 81 mg PO DAILY [facility] Last Admin: 04/06/18 09:03 Dose: 81 mg Atorvastatin Calcium (Lipitor -) 10 mg PO HS [facility] Last Admin: 04/05/18 21:25 Dose: 10 mg Baclofen (Lioresal -) 10 mg PO BID [facility] Last Admin: 04/06/18 09:03 Dose: Not Given Finasteride (Proscar -) 5 mg PO DAILY [facility] Last Admin: 04/06/18 09:05 Dose: Not Given Lisinopril (Prinivil) 10 mg PO DAILY [facility] Last Admin: 04/06/18 09:03 Dose: 10 mg Oxybutynin Chloride (Ditropan -) 5 mg PO HS [facility] Last Admin: 04/05/18 21:25 Dose: 5 mg Zolpidem Tartrate (Ambien -) 10 mg PO HS PRN Vital Signs: Vital Signs Period Temp Pulse Resp BP Sys/Bales Pulse Ox Last 24 Hr 97.4 F-97.9 F 45-54 18-20 95-147/50-96 97-99 Assessment/Plan EKG sinus bradycardia 46 bpm, no ischemic changes tele: sinus presyncope - likely related to taking double dose of lasix, dehydration vs vasovagal event - feels at baseline now - holding lasix for low BP - echo and carotid ultrasound ordered, if benign no further testing Bradycardia - was on propranolol at home which has been held, likely bb effect - continue holding bb, monitor BP HTN - stable on lisinopril, holding propranolol as above
--- NOTE | 2018-04-06 11:44 | PN ---
Progress Note (short form) - Note Progress Note: pt seen/ examined still feels light headness sometimes no distress denies cp/ palpitations cardiology f/u noted/ discussed still carmen Vital Signs Temp 97.9 F 04/06/18 05:43 Pulse 45 L 04/06/18 05:43 Resp 18 04/06/18 05:43 BP 116/70 04/06/18 05:43 Pulse Ox 99 04/05/18 21:58 Intake & Output 04/05/18 04/05/18 04/06/18 11:59 23:59 11:59 Intake Total 10 10 Balance 10 10 Weight 286 lb Intake: IVPB 10 10 Other: Voiding Method Toilet Toilet Height 5 ft 10 in Body Mass Index (BMI) 41.0 Weight Measurement Method Standing Scale Active Medications Allopurinol (Zyloprim -) 300 mg PO DAILY [facility] Last Admin: 04/06/18 09:03 Dose: 300 mg Aspirin (Asa -) 81 mg PO DAILY [facility] Last Admin: 04/06/18 09:03 Dose: 81 mg Atorvastatin Calcium (Lipitor -) 10 mg PO HS [facility] Last Admin: 04/05/18 21:25 Dose: 10 mg Baclofen (Lioresal -) 10 mg PO BID [facility] Last Admin: 04/06/18 09:03 Dose: Not Given Finasteride (Proscar -) 5 mg PO DAILY [facility] Last Admin: 04/06/18 09:05 Dose: Not Given Lisinopril (Prinivil) 10 mg PO DAILY [facility] Last Admin: 04/06/18 09:03 Dose: 10 mg Oxybutynin Chloride (Ditropan -) 5 mg PO HS [facility] Last Admin: 04/05/18 21:25 Dose: 5 mg Zolpidem Tartrate (Ambien -) 10 mg PO HS PRN CBC, BMP 04/05/18 05:25 04/05/18 05:25 Physical Examination Constitutional: Yes: No Distress, Calm. comfortable Neck-- No carotid bruie Cardiovascular: Yes: Regular Rate and Rhythm Respiratory: Yes: CTA Bilaterally Gastrointestinal: Yes: Normal Bowel Sounds, Soft, Abdomen, Obese. No: Tenderness Edema: No Neuro - aox 3 . non focal. CN all intact Imaging - Results Chest X-ray: Image Reviewed (clear) EKG: Report Reviewed (sinus bradycardia) Problem List - Problems (1) HTN (hypertension) Code(s): I10 - ESSENTIAL (PRIMARY) HYPERTENSION (2) Bradycardia Code(s): R00.1 - BRADYCARDIA, UNSPECIFIED (3) Pre-syncope Code(s): R55 - SYNCOPE AND COLLAPSE Assessment/Plan stable but still symptomatic monitor monitor on tele today discussed with pt/nursing staff echo u/s carotid will follow
[2018-04-06] MEDS ORDERED: FINASTERIDE 5 MG TABLET (FP) PO SCH (22:00)
[2018-04-06] MEDS: ATORVASTATIN CA 10 MG TABLET (FP) PO SCH (22:25)
[2018-04-06] MEDS: OXYBUTYNIN CHLORIDE 5 MG TABLET PO SCH (22:25)
[2018-04-07 08:37] VITALS: BP 140/89; PULSE 47; TEMP 98.1
[2018-04-07] MEDS: BACLOFEN 10 MG TABLET (FP) PO SCH (09:21)
[2018-04-07] MEDS: ASPIRIN 81 MG CHEWABLE TABLETS PO SCH (09:21)
[2018-04-07] MEDS: LISINOPRIL 10 MG TABLET (FP) PO SCH (09:21)
[2018-04-07] MEDS: ALLOPURINOL 300 MG TABLET (FP) PO SCH (09:21)
--- NOTE | 2018-04-07 10:53 | PN ---
Progress Note (short form) - Note Progress Note: s: no chest pain, palps, dyspnea, loc Current Medications Generic Name Dose Route Start Last Admin Trade Name Freq PRN Reason Stop Dose Admin Allopurinol 300 mg 04/05/18 10:00 04/07/18 09:21 Zyloprim - PO 300 mg DAILY ALCIDES Administration Aspirin 81 mg 04/05/18 10:00 04/07/18 09:21 Asa - PO 81 mg DAILY ALCIDES Administration Atorvastatin Calcium 10 mg 04/04/18 22:00 04/06/18 22:25 Lipitor - PO 10 mg HS ALCIDES Administration Baclofen 10 mg 04/04/18 22:00 04/07/18 09:21 Lioresal - PO Not Given BID ALCIDES Finasteride 5 mg 04/06/18 22:00 04/06/18 22:26 Proscar - PO 5 mg HS ALCIDES Administration Lisinopril 10 mg 04/05/18 10:00 04/07/18 09:21 Prinivil PO 10 mg DAILY ACLIDES Administration Oxybutynin Chloride 5 mg 04/04/18 22:00 04/06/18 22:25 Ditropan - PO 5 mg HS ALCIDES Administration Zolpidem Tartrate 10 mg 04/04/18 14:22 Ambien - PO HS PRN Vital Signs: Vital Signs Period Temp Pulse Resp BP Sys/Bales Pulse Ox Last 24 Hr 97.7 F-98.1 F 47-56 18-18 111-156/66-89 99-100 nad no jvd rrr ss2 nom mrg cta bl nl eff aao3 no le e/c/c no jaunidce diaphoresis EKG sinus bradycardia 46 bpm, no ischemic changes tele: sinus in 50s carotids 03/2018: min dz, no sig stenosis a/p: presyncope - likely related to taking double dose of lasix, dehydration vs vasovagal event - feels at baseline now - holding lasix - carotid us benign - echo ordered, if benign no further cardiac testing for now Bradycardia - was on propranolol at home which has been held, likely bb effect - continue holding bb, HR improving HTN - stable on lisinopril, holding propranolol and lasix as above if echo benign then ok for dc from cardiac pov, would cont to hold inderal and lasix until outpt f/u with renal next week
--- NOTE | 2018-04-07 13:52 | DS ---
Physical Examination Vital Signs: Vital Signs Temperature 98.1 F 04/07/18 08:36 Pulse Rate 47 L 04/07/18 08:36 Respiratory Rate 18 04/07/18 08:36 Blood Pressure 140/89 04/07/18 08:36 O2 Sat by Pulse Oximetry (%) 100 04/07/18 09:33 Findings/Remarks: feels well no complains denies dizziness denies cp. remains carmen-- off propanolol off lasix bp ok Constitutional: Yes: No Distress, Calm Eyes: Yes: Conjunctiva Clear Neck: Yes: Supple Cardiovascular: Yes: Regular Rate and Rhythm, Bradycardia Respiratory: Yes: CTA Bilaterally Gastrointestinal: Yes: Soft Edema: No Neurological: Yes: Alert Psychiatric: Yes: Alert Labs: CBC, BMP 04/05/18 05:25 04/05/18 05:25 Discharge Summary Reason For Visit: BRADYCARDIA/PRE SYNCOPE Current Active Problems Bradycardia (Acute) HTN (hypertension) (Acute) Pre-syncope (Acute) Hospital Course: Admitted for pre- syncope work up -ve so far except carmen bb / lasix held tommy was dehydrated echo - done today -- report pending u/s carotid ok will d/c today- if echo ok f/u in office within one week pt in agreement meds reconcilled Condition: Stable - Instructions Referrals: Jumana Jacinto MD [Primary Care Provider] - Disposition: HOME - Home Medications Comprehensive Discharge Medication List: Ambulatory Orders Allopurinol 300 mg PO DAILY 11/11/17 Aspirin [ASA -] 81 mg PO DAILY 11/11/17 Atorvastatin Ca [Lipitor] 10 mg PO HS 11/11/17 Finasteride [Proscar -] 5 mg PO HS 11/11/17 Lisinopril 10 mg PO DAILY 11/11/17 [place]-3 Fatty Acids/Fish Oil [Fish Oil 1,000 mg Capsule] 1,000 mg DAILY Oxybutynin Chloride 5 mg PO HS 11/11/17 Zolpidem Tartrate 10 mg PO PRN 11/11/17
--- NOTE | 2018-04-07 14:09 | ECHO ---
Name: UHY KEMP Exam:Adult Echocardiogram Study Date: 04/07/2018 09:55 AM Age: 62 yrs Reason For Study: LIGHTHEADNESS Height: 70 in Weight: 286 lb BSA: 2.4 m2 MMode/2D Measurements & Calculations IVSd: 0.89 cm Ao root diam: 3.9 cm LVIDd: 6.4 cm LA dimension: 4.7 cm LVIDs: 3.9 cm ACS: 2.2 cm LVPWd: 1.2 cm IVSs: 1.5 cm LVPWs: 1.4 cm EDV(Teich): 210.8 ml ESV(Teich): 64.1 ml Doppler Measurements & Calculations MV E max burke: 65.9 cm/sec Ao V2 max: 98.2 cm/sec MV A max burke: 55.5 cm/sec Ao max P.9 mmHg MV E/A: 1.2 Ao V2 mean: 69.7 cm/sec Ao mean P.3 mmHg Ao V2 VTI: 19.4 cm TR max burke: 207.9 cm/sec Med Peak E' Burke: 7.1 cm/sec TR max P.3 mmHg Med E/e': 9.3 Lat Peak E' Burke: 10.3 cm/sec Lat E/e': 6.4 Procedure A complete two-dimensional transthoracic echocardiogram was performed (2D, M-mode, Doppler and color flow Doppler). The study was technically excellent with all images being of optimal quality. Left Ventricle The left ventricular size, thickness and function are normal. The transmitral spectral Doppler flow p attern is suggestive of impaired LV relaxation. The left ventricular wall motion is normal. Right Ventricle The right ventricle is normal in size and function. There is normal right ventricular wall thickness. Atria Normal left and right atrial size and function. Mitral Valve The mitral valve is normal in structure and function. There is trace mitral regurgitation. Tricuspid Valve The tricuspid valve is normal in structure and function. There is trace tricuspid regurgitation. Aortic Valve The aortic valve is normal in structure and function. No aortic regurgitation is present. Pulmonic Valve The pulmonic valve is normal in structure and function. Trace pulmonic valvular regurgitation. Great Vessels The aortic root is normal size. Pericardium/Pleura There is no pericardial effusion. Interpretation Summary The left ventricular size, thickness and function are normal The transmitral spectral Doppler flow pattern is suggestive of impaired LV relaxation. The right ventricle is normal in size and function. Wesley Paredes 04/07/2018 02:09 PM
== END 2018-04-07 15:29 | disposition home or self-care (01) ==
LOC: JER 09:13 → JERBED 14:48 → J4S 04-05 16:32
PROVIDERS: ADMIT Internal Medicine; ATTEND Internal Medicine
PROC: 3E0337Z Introduction of Electrolytic and Water Balance Substance into Peripheral Vein, Percutaneous Approach (ICD-10-PCS; principal; 2018-04-04)
DX: R55 Syncope and collapse (principal); R00.1 Bradycardia, unspecified; I10 Essential (primary) hypertension; M10.9 Gout, unspecified; Q61.3 Polycystic kidney, unspecified; Z79.82 Long term (current) use of aspirin; Z88.0 Allergy status to penicillin
CPT/HCPCS: 36415; 71045-TC-FY; 80053; 81003; 81015; 82550; 82553; 83735; 83880; 84439; 84443; 84484; 85025; 85027; 93005; 93010; 93306-TC; 93880-TC; 99285-25; G0378; J7030

== ENCOUNTER 2018-05-17 20:41 | Observation (INO) | payer BC ==
--- NOTE | 2018-05-17 21:08 | PDOC ---
History of Present Illness - General Chief Complaint: Chest Pain Stated Complaint: CHEST PAIN Time Seen by Provider: 05/17/18 20:50 Past History - Past Medical History Allergies/Adverse Reactions: Allergies Allergy/AdvReac Type Severity Reaction Status Date / Time Iodine and Iodide Containing Allergy Verified 05/17/18 20:48 Produc Penicillins Allergy Verified 05/17/18 20:48 Home Medications: Ambulatory Orders Allopurinol 300 mg PO DAILY 11/11/17 Aspirin [ASA -] 81 mg PO DAILY 11/11/17 Atorvastatin Ca [Lipitor] 10 mg PO HS 11/11/17 Finasteride [Proscar -] 5 mg PO HS 11/11/17 Lisinopril 10 mg PO DAILY 11/11/17 [place]-3 Fatty Acids/Fish Oil [Fish Oil 1,000 mg Capsule] 1,000 mg DAILY Oxybutynin Chloride 5 mg PO HS 11/11/17 Zolpidem Tartrate 10 mg PO PRN 11/11/17 Anemia: No Asthma: No Cancer: No Cardiac Disorders: No CVA: No COPD: No CHF: No Dementia: No Diabetes: No GI Disorders: No Disorders: No HTN: Yes Hypercholesterolemia: No Kidney Stones: No (polycystic kidney disea) Liver Disease: No Seizures: No Thyroid Disease: No - Immunization History Immunization Up to Date: No - Suicide/Smoking/Psychosocial Hx Smoking History: Never smoked Have you smoked in the past 12 months: No Number of Cigarettes Smoked Daily: 1 Cigars Per Day: 2 Information on smoking cessation initiated: No 'Breaking Loose' booklet given: 05/04/16 Hx Alcohol Use: No Drug/Substance Use Hx: No Substance Use Type: None Hx Substance Use Treatment: No *Physical Exam - Vital Signs Last Vital Signs Temp Pulse Resp BP Pulse Ox 97.4 F L 50 L 18 131/85 97 05/17/18 20:48 05/17/18 20:48 05/17/18 20:48 05/17/18 20:48 05/17/18 20:48 Moderate Sedation - Procedure Monitoring Vital Signs: Procedure Monitoring Vital Signs Temperature 97.4 F L 05/17/18 20:48 Pulse Rate 50 L 05/17/18 20:48 Respiratory Rate 18 05/17/18 20:48 Blood Pressure 131/85 05/17/18 20:48 O2 Sat by Pulse Oximetry (%) 97 05/17/18 20:48
--- NOTE | 2018-05-17 21:09 | PDOC ---
History of Present Illness - General Chief Complaint: Chest Pain Stated Complaint: CHEST PAIN Time Seen by Provider: 05/17/18 20:50 - History of Present Illness Initial Comments: 05/17/18 21:08 62 yo M with h/o Gout, HTN, Bradycradia ( 50-60), PKD, who p/w retrosternal chest tightness. Patient reports acute onset of non radiating, non pleuritic, retrosternal chest tightnesses beginning at 800PM this evening at rest, and resolving spontaneously. No identifiable alleviators or triggers. Also states that he experienced transient episode of lightheadedness. Denies LOC. Reports h/ o similar symptoms. Echo (04/07/2018) Unremarkable. Symptoms now resolved. Patient denies neck stiffness/pain, palpitations, orthopnea, PND, leg pain/ swelling, N/V, F,C, SOB, urinary complaints, abdominal pain, diarrhea, constipation,vertigo, weakness, sensory changes. PMHx: as noted above. Denies h/o ACS/ID ROS: as noted SHx: Denies Etoh, IVDA, tobacco use Allergies: PCN Cardiology: Dr. Butts Past History - Past Medical History Allergies/Adverse Reactions: Allergies Allergy/AdvReac Type Severity Reaction Status Date / Time Iodine and Iodide Containing Allergy Verified 05/17/18 20:48 Produc Penicillins Allergy Verified 05/17/18 20:48 Home Medications: Ambulatory Orders Allopurinol 300 mg PO DAILY 11/11/17 Aspirin [ASA -] 81 mg PO DAILY 11/11/17 Atorvastatin Ca [Lipitor] 10 mg PO HS 11/11/17 Finasteride [Proscar -] 5 mg PO HS 11/11/17 Lisinopril 10 mg PO DAILY 11/11/17 [place]-3 Fatty Acids/Fish Oil [Fish Oil 1,000 mg Capsule] 1,000 mg DAILY Oxybutynin Chloride 5 mg PO HS 11/11/17 Zolpidem Tartrate 10 mg PO PRN 11/11/17 Anemia: No Asthma: No Cancer: No Cardiac Disorders: No CVA: No COPD: No CHF: No Dementia: No Diabetes: No GI Disorders: No Disorders: No HTN: Yes Hypercholesterolemia: No Kidney Stones: No (polycystic kidney disea) Liver Disease: No Seizures: No Thyroid Disease: No - Immunization History Immunization Up to Date: No - Suicide/Smoking/Psychosocial Hx Smoking History: Never smoked Have you smoked in the past 12 months: No Number of Cigarettes Smoked Daily: 1 Cigars Per Day: 2 Information on smoking cessation initiated: No 'Breaking Loose' booklet given: 05/04/16 Hx Alcohol Use: No Drug/Substance Use Hx: No Substance Use Type: None Hx Substance Use Treatment: No Review of Systems - Review of Systems Comments:: 05/17/18 21:31 GENERAL/CONSTITUTIONAL: No fever or chills. No weakness. HEAD, EYES, EARS, NOSE AND THROAT: No change in vision. No ear pain or discharge. No sore throat. CARDIOVASCULAR: No chest pain or shortness of breath RESPIRATORY: No cough, wheezing, or hemoptysis. GASTROINTESTINAL: No nausea, vomiting, diarrhea or constipation. GENITOURINARY: No dysuria, frequency, or change in urination. MUSCULOSKELETAL: No joint or muscle swelling or pain. No neck or back pain. SKIN: No rash NEUROLOGIC: No headache, vertigo, loss of consciousness, or change in strength/ sensation. ENDOCRINE: No increased thirst. No abnormal weight change HEMATOLOGIC/LYMPHATIC: No anemia, easy bleeding, or history of blood clots. ALLERGIC/IMMUNOLOGIC: No hives or skin allergy. *Physical Exam - Vital Signs Last Vital Signs Temp Pulse Resp BP Pulse Ox 97.4 F L 50 L 18 131/85 97 05/17/18 20:48 05/17/18 20:48 05/17/18 20:48 05/17/18 20:48 05/17/18 20:48 - Physical Exam Comments: 05/17/18 21:31 GENERAL: Awake, alert, and fully oriented, in no acute distress HEAD: No signs of trauma, normocephalic, atraumatic EYES: PERRLA, EOMI, sclera anicteric, conjunctiva clear ENT: Hearing grossly normal, nares patent, oropharynx clear without exudates. Moist mucosa NECK: Normal ROM, supple, no lymphadenopathy, JVD, or masses LUNGS: No distress, speaks full sentences, clear to auscultation bilaterally HEART: Irregular rate and nml rhythm, normal S1 and S2, no murmurs, rubs or gallops, peripheral pulses normal and equal bilaterally. ABDOMEN: Soft, nontender, normoactive bowel sounds. No guarding, no rebound. No masses EXTREMITIES : Normal inspection, Normal range of motion, no edema. No clubbing or cyanosis. NEUROLOGICAL: Cranial nerves II through XII grossly intact. Normal speech, normal gait, no focal sensorimotor deficits SKIN: Warm, Dry, normal turgor, no rashes or lesions noted Moderate Sedation - Procedure Monitoring Vital Signs: Procedure Monitoring Vital Signs Temperature 97.4 F L 05/17/18 20:48 Pulse Rate 50 L 05/17/18 20:48 Respiratory Rate 18 05/17/18 20:48 Blood Pressure 131/85 05/17/18 20:48 O2 Sat by Pulse Oximetry (%) 97 05/17/18 20:48 Heart Score/ECG Review - History History: Slightly suspicious - Electrocardiogram EKG: Non specific repolarization disturbance - Age Age: 45-65 - Risk Factors Risk Factors Heart Score: Yes Hx Hypercholesterolemia, Yes Hx Hypertension, Yes Positive family hx of cardiac disease, Yes Hx Obesity Based on the list above the patient has:: >/=3 risk factors or Hx atherosclerotic disease - Troponin Troponin: </= normal limit - Score Heart Score - Total: 4 ED Treatment Course - LABORATORY CBC & Chemistry Diagram: 05/17/18 21:11 05/17/18 21:11 Medical Decision Making - Medical Decision Making 05/17/18 21:27 62 yo M with h/o Gout, HTN, Bradycradia ( 50-60), PKD, who p/w retrosternal chest tightness, and lightheadedness. HR 50, vitals otherwise wnl, AF, A&Ox3. Physical exam unremarkable. Denies LOC, palpitations, N/V, F,C, SOB, urinary complaints, abdominal pain, diarrhea, constipation,vertigo, weakness, sensory changes. ACS/ID. Will consider cardiac dysarrythmia, hypoglycemia, electrolyte abnml, metabolic or toxic derangements, infection. ED Course: 05/17/18 22:01 EKG: Junctional Rhythm, HR 49, absent P waves. Absent OCTAVIO, STD. Normal axis. Changed from prior ( 04-04-2018) 05/17/18 22:03 CBC: Unremarkable 05/17/18 22:18 BUN/CR: 35/1.7 (Cr~1.3) NS 1 L Trop: Neg Admit for elevated heart score, chest pain at rest, DEBBI. Heart Score ~4 CXR: Unremarkable Patient endorsed to Kayla Blount BULB SORTER Admitted to tele/obs Lorie Thomas. 05/17/18 22:41 *DC/Admit/Observation/Transfer Diagnosis at time of Disposition: Lightheaded, Chest pain at rest, DEBBI (acute kidney injury) - Discharge Dispostion Condition at time of disposition: Stable Decision to Admit order: Yes - Referrals - Patient Instructions - Post Discharge Activity - Attestations Physician Attestion: 05/17/18 21:32 I attest to the information provided in this note.
--- NOTE | 2018-05-17 21:10 | PDOC ---
Attending Attestation - HPI HPI: 05/17/18 23:00 The patient is a 62 year old male, with a significant past medical history of Gout, HTN, Bradycardia (50-60), PKD, who presents to the emergency department with, non radiating, non pleuritic, retrosternal chest tightness that has since resolved. He denies any recent fevers, chills, headache or dizziness. He denies any recent nausea, vomit, diarrhea or constipation. He denies any recent dysuria, frequency, urgency or hematuria. Allergies: Penicillins, Iodine. Primary Care Physician: Dr. Jacinto Cardiology: Dr. Butts <Deidra Madison - Last Filed: 05/17/18 23:00> - Resident Resident Name: Uriel Villagran - ED Attending Attestation I have performed the following: I have examined & evaluated the patient, The case was reviewed & discussed with the resident, I agree w/resident's findings & plan - HPI HPI: 05/17/18 21:56 Pt comes with chest pain 8PM today at rest; in the ER he has a junctional rhythm. - Physicial Exam PE: 05/18/18 00:26 Agree with resident exam - Medical Decision Making 05/18/18 00:26 Pt will be admitted for his chest discomfort and his junctional rhythm that is new. 05/18/18 00:27 BUN/CR creeping higher; pt is slightly dehydrated; he was given 1L NSS. <Lindsay Sanches - Last Filed: 05/18/18 00:27> Attestations - Attestations 05/17/18 23:01 Documentation prepared by Deidra Madison, acting as territory sales manager medical for Lindsay Sanches MD. <Deidra Madison - Last Filed: 05/17/18 23:00>
[2018-05-17 21:47] LABS: BASO % 0.9 % (0-2.0); EOS % 2.2 % (0-4.5); HEMATOCRIT 43.2 % (35.4-49); HEMOGLOBIN 15.1 GM/dL (11.7-16.9); LYMPH % 31.8 % (8-40); MCH 34.4 pg (25.7-33.7); MCHC 34.9 g/dl (32.0-35.9); MEAN CELL VOLUME 98.4 fl (80-96); MEAN PLT VOLUME 8.1 fl (7.5-11.1); MONO % 8.4 % (3.8-10.2); NEUT % 56.7 % (42.8-82.8); RBC 4.39 M/mm3 (4.00-5.60); RDW 14.3 % (11.9-15.9); WHITE BLOOD COUNT 7.5 K/mm3 (4.0-10.0)
[2018-05-17 22:10] LABS: ALBUMIN 3.4 g/dl (3.4-5.0); ALK PHOS 45 U/L (45-117); ANION GAP 8 MMOL/L (8-16); BILIRUBIN,TOTAL 0.4 mg/dL (0.2-1); BLOOD UREA NITROGEN 35 mg/dL (7-18); CALCIUM 8.3 mg/dL (8.5-10.1); CHLORIDE 108 mmol/L (98-107); CO2 25 mmol/L (21-32); CREATININE 1.7 mg/dL (0.55-1.3); GLUCOSE,RANDOM 93 mg/dL (74-106); POTASSIUM 4.7 mmol/L (3.5-5.1); SGOT/AST 26 U/L (15-37); SGPT/ALT 26 U/L (13-61); SODIUM 140 mmol/L (136-145); TOT PROT 7.1 g/dl (6.4-8.2)
[2018-05-17] MEDS ORDERED: SODIUM CHLORIDE 1,000 ML IV STA (22:22)
[2018-05-17 22:40] LABS: PLATELET COUNT 223 K/MM3 (134-434)
--- NOTE | 2018-05-17 22:44 | HP ---
Admitting History and Physical - Primary Care Physician PCP: Jumana Jacinto - Admission Chief Complaint: Chest Tightness, Dizziness History of Present Illness: This is a 62 y/o man with a past medical history of HTN, PKD, Gout, recent admission for Bradycardia 04/04-04/07. Who presents to the ED with chest tightness and dizziness while at rest 8pm tonight. Patient denies palpitations, SOB. Patient denies fever, chills, cough, AP, N/V/D, constipation, dysuria. History Source: Patient Limitations to Obtaining History: No Limitations - Past Medical History Cardiovascular: Yes: HTN, Other (Bradycardia) Renal/: Yes: BPH Musculoskeletal: Yes: Chronic low back pain - Smoking History Smoking history: Never smoked Have you smoked in the past 12 months: No Aproximately how many cigarettes per day: 1 - Alcohol/Substance Use Hx Alcohol Use: No History of Substance Use: reports: None - Social History Usual Living Arrangement: Yes: With Spouse ADL: Independent History of Recent Travel: No Home Medications - Allergies Allergies/Adverse Reactions: Allergies Allergy/AdvReac Type Severity Reaction Status Date / Time Iodine and Iodide Containing Allergy Verified 05/17/18 20:48 Produc Penicillins Allergy Verified 05/17/18 20:48 - Home Medications Home Medications: Ambulatory Orders Allopurinol 300 mg PO DAILY 11/11/17 Aspirin [ASA -] 81 mg PO DAILY 11/11/17 Atorvastatin Ca [Lipitor] 10 mg PO HS 11/11/17 Finasteride [Proscar -] 5 mg PO HS 11/11/17 Lisinopril 10 mg PO DAILY 11/11/17 [place]-3 Fatty Acids/Fish Oil [Fish Oil 1,000 mg Capsule] 1,000 mg DAILY Oxybutynin Chloride 5 mg PO HS 11/11/17 Zolpidem Tartrate 10 mg PO PRN 11/11/17 Family Disease History - Family Disease History Family Disease History: Diabetes: Father (ESRD), Heart Disease: Mother (ESRD, PKD, ), Other: Father, Mother Review of Systems - Review of Systems Constitutional: reports: No Symptoms Eyes: reports: No Symptoms HENT: reports: No Symptoms Neck: reports: No Symptoms Cardiovascular: reports: Chest Pain Respiratory: reports: No Symptoms Gastrointestinal: reports: No Symptoms Genitourinary: reports: No Symptoms Breasts: reports: No Symptoms Reported Musculoskeletal: reports: No Symptoms Integumentary: reports: No Symptoms Neurological: reports: Dizziness Endocrine: reports: No Symptoms Hematology/Lymphatic: reports: No Symptoms Psychiatric: reports: No Symptoms Physical Examination Vital Signs: Vital Signs Temperature 97.4 F L 05/17/18 20:48 Pulse Rate 50 L 05/17/18 20:48 Respiratory Rate 18 05/17/18 20:48 Blood Pressure 131/85 05/17/18 20:48 O2 Sat by Pulse Oximetry (%) 97 05/17/18 20:48 Constitutional: Yes: Well Nourished, No Distress, Calm Eyes: Yes: WNL, Conjunctiva Clear, EOM Intact, PERRL HENT: Yes: WNL, Atraumatic, Normocephalic Neck: Yes: WNL, Supple, Trachea Midline Cardiovascular: Yes: Bradycardia, S1, S2 Respiratory: Yes: WNL, Regular, CTA Bilaterally Gastrointestinal: Yes: WNL, Normal Bowel Sounds, Soft, Abdomen, Obese ...Rectal Exam: Yes: Deferred Renal/: Yes: WNL Breast(s): Yes: WNL Musculoskeletal: Yes: WNL Extremities: Yes: WNL Edema: No Peripheral Pulses WNL: Yes Neurological: Yes: WNL, Alert, Oriented, Cran Nerves II-XII Intact ...Motor Strength: WNL Psychiatric: Yes: WNL, Alert, Oriented Labs: CBC, BMP 05/17/18 21:11 05/17/18 21:11 Laboratory Results - last 24 hr 05/17/18 05/17/18 05/18/18 21:11 21:11 02:54 WBC 7.5 7.4 RBC 4.39 4.14 Hgb 15.1 14.1 Hct 43.2 40.5 MCV 98.4 H 97.8 H MCH 34.4 H 34.1 H MCHC 34.9 34.9 RDW 14.3 14.3 Plt Count 223 208 MPV 8.1 8.1 Absolute Neuts (auto) 4.3 4.4 Neutrophils % 56.7 59.0 Lymphocytes % 31.8 D 31.7 Monocytes % 8.4 6.7 Eosinophils % 2.2 2.0 Basophils % 0.9 0.6 Nucleated RBC % 0 0 Sodium 140 Potassium 4.7 Chloride 108 H Carbon Dioxide 25 Anion Gap 8 BUN 35 H Creatinine 1.7 H Creat Clearance w eGFR 41.18 Random Glucose 93 Calcium 8.3 L Phosphorus Magnesium Total Bilirubin 0.4 AST 26 ALT 26 Alkaline Phosphatase 45 Creatine Kinase 214 Creatine Kinase Index 0.8 CK-MB (CK-2) 1.8 Troponin I < 0.02 Total Protein 7.1 Albumin 3.4 05/18/18 05/18/18 02:54 02:54 WBC RBC Hgb Hct MCV MCH MCHC RDW Plt Count MPV Absolute Neuts (auto) Neutrophils % Lymphocytes % Monocytes % Eosinophils % Basophils % Nucleated RBC % Sodium 141 Potassium 4.8 Chloride 112 H Carbon Dioxide 22 Anion Gap 6 L BUN 32 H Creatinine 1.3 Creat Clearance w eGFR 56.12 Random Glucose 103 Calcium 8.0 L Phosphorus 3.1 Magnesium 2.2 Total Bilirubin AST ALT Alkaline Phosphatase Creatine Kinase Creatine Kinase Index CK-MB (CK-2) Troponin I < 0.02 Total Protein Albumin Intake & Output 05/15/18 05/16/18 05/17/18 05/18/18 23:59 23:59 23:59 23:59 Weight 129.727 kg 130.725 kg Current Medications Generic Name Dose Route Start Last Admin Trade Name Freq PRN Reason Stop Dose Admin Allopurinol 300 mg 05/18/18 10:00 Zyloprim - PO DAILY ALCIDES Aspirin 162 mg 05/18/18 10:00 Ecotrin - PO 05/18/18 10:01 ONCE ONE Aspirin 81 mg 05/18/18 10:00 Asa - PO DAILY ALCIDES Finasteride 5 mg 05/18/18 22:00 Proscar - PO HS [facility] Oxybutynin Chloride 5 mg 05/18/18 22:00 Ditropan - PO HS [facility] Imaging - Results Chest X-ray: Image Reviewed EKG: Image Reviewed Problem List - Problems (1) Chest pain at rest Assessment/Plan: r/o ACS Continue cardiac monitoring Serial Enzymes Appreciate Cardiology consult Asa given in ED, will continue Echo 04/07/18- normal LVSF, RV, normal Trace MR, TR, PVR Cartoid Doppler 04/06/18- no evidence of stenosis or occlusion BMP, mg, phos in am Code(s): R07.9 - CHEST PAIN, UNSPECIFIED (2) Lightheaded Assessment/Plan: Likely secondary to arrhythmia Appreciate Cardiology consult Monitor CBC, BMP Orthostatics Fall Precautions Code(s): R42 - DIZZINESS AND GIDDINESS (3) DEBBI (acute kidney injury) Assessment/Plan: Likely secondary to dehydration Cr 1.7 slightly above baseline NS bolus given in ED Monitor BMP Code(s): N17.9 - ACUTE KIDNEY FAILURE, UNSPECIFIED (4) Bradycardia Assessment/Plan: Likely secondary to medication Patient reports being started on Bystolic by his Clinical Research Nurse Coordinator Continue cardiac monitoring Hold BB Appreciate Cardiology consult Pacer Pads at bedside Code(s): R00.1 - BRADYCARDIA, UNSPECIFIED (5) HTN (hypertension) Assessment/Plan: Stable Monitor BP Hold BB secondary to symptomatic Bradycardia Continue Lisinopril Monitor renal function closely Code(s): I10 - ESSENTIAL (PRIMARY) HYPERTENSION Assessment/Plan This is a 62 y/o man with a PMHx of HTN, PKD, Gout, Bradycardia. Placed in Telemetry Observation for Chest Pain, DEBBI for further evaluation of their emergent condition. Plan: See Problem List FEN PO Fluids as tolerated Replete lytes prn Low Na Diet DVT ppx OOB SCDs Consider AC if LOS > 48hrs Dispo: Observation Visit type - Emergency Visit Emergency Visit: Yes ED Registration Date: 05/17/18 Care time: The patient presented to the Emergency Department on the above date and was hospitalized for further evaluation of their emergent condition. - New Patient This patient is new to me today: Yes Date on this admission: 05/17/18 - Critical Care Critical Care patient: No
[2018-05-18 00:19] VITALS: BMI 41.3
[2018-05-18 03:07] LABS: BASO % 0.6 % (0-2.0); HEMATOCRIT 40.5 % (35.4-49); HEMOGLOBIN 14.1 GM/dL (11.7-16.9); LYMPH % 31.7 % (8-40); MCH 34.1 pg (25.7-33.7); MCHC 34.9 g/dl (32.0-35.9); MEAN CELL VOLUME 97.8 fl (80-96); MEAN PLT VOLUME 8.1 fl (7.5-11.1); MONO % 6.7 % (3.8-10.2); PLATELET COUNT 208 K/MM3 (134-434); RBC 4.14 M/mm3 (4.00-5.60); RDW 14.3 % (11.9-15.9); WHITE BLOOD COUNT 7.4 K/mm3 (4.0-10.0)
[2018-05-18 03:48] LABS: ANION GAP 6 MMOL/L (8-16); BLOOD UREA NITROGEN 32 mg/dL (7-18); CHLORIDE 112 mmol/L (98-107); CO2 22 mmol/L (21-32); CREATININE 1.3 mg/dL (0.55-1.3); GLUCOSE,RANDOM 103 mg/dL (74-106); MAGNESIUM 2.2 mg/dL (1.8-2.4); PHOSPHOROUS 3.1 mg/dL (2.5-4.9); POTASSIUM 4.8 mmol/L (3.5-5.1); SODIUM 141 mmol/L (136-145)
[2018-05-18] MEDS ORDERED: PT OWN MED DRAWER 7, Y5N ONE ×2 (08:36→08:56)
[2018-05-18] MEDS: ALLOPURINOL 300 MG TABLET (FP) PO SCH (09:41)
[2018-05-18] MEDS: OMEGA-3 ACID ETHYL ESTERS (FATTY-ACIDS) 1 GM CAPSULE (FP) PO SCH (09:41)
[2018-05-18] MEDS: ASPIRIN 81 MG CHEWABLE TABLETS PO SCH (09:50)
[2018-05-18] MEDS ORDERED: ASPIRIN COATED 81 MG TABLET.EC PO ONE (10:00)
--- NOTE | 2018-05-18 10:14 | CONSULT ---
Consult Consult Specialty:: Cardiology Referred by:: Matthew Reason for Consultation:: Headache and chest pains - History of Present Illness Chief Complaint: Chest pains History of Present Illness: 62 yo male Known to Dr. Butts last seen in Apr 2018 Has h/o anxiety and panic HTn and prior bradycardia Recently stopped propnanlol due to bradycardia but put back on Bystolic 5mg Last dose of bystolic was yesterday Now presents with chest tightness x 1 day Feels symptoms are similar to his prior lanic Also associated with headache Trop <0.02 -> <0.02 - History Source History Provided By: Patient, Medical Record Limitations to Obtaining History: No Limitations - Past Medical History Cardio/Vascular: Yes: HTN, Other (Bradycardia) Renal/: Yes: BPH Musculoskeletal: Yes: Chronic low back pain - Alcohol/Substance Use Hx Alcohol Use: No History of Substance Use: reports: None - Smoking History Smoking history: Never smoked Have you smoked in the past 12 months: No Aproximately how many cigarettes per day: 1 - Social History ADL: Independent History of Recent Travel: No Home Medications - Allergies Allergies/Adverse Reactions: Allergies Allergy/AdvReac Type Severity Reaction Status Date / Time Iodine and Iodide Containing Allergy Verified 05/17/18 20:48 Produc Penicillins Allergy Verified 05/17/18 20:48 - Home Medications Home Medications: Ambulatory Orders Allopurinol 300 mg PO DAILY 11/11/17 Aspirin [ASA -] 81 mg PO DAILY 11/11/17 Atorvastatin Ca [Lipitor] 10 mg PO HS 11/11/17 Finasteride [Proscar -] 5 mg PO HS 11/11/17 Lisinopril 10 mg PO DAILY 11/11/17 [place]-3 Fatty Acids/Fish Oil [Fish Oil 1,000 mg Capsule] 1,000 mg DAILY Oxybutynin Chloride 5 mg PO HS 11/11/17 Zolpidem Tartrate 10 mg PO PRN 11/11/17 Nebivolol [Bystolic -] 5 mg PO DAILY 05/18/18 Family Disease History - Family Disease History Family Disease History: Diabetes: Father (ESRD), Heart Disease: Mother (ESRD, PKD, ), Other: Father, Mother Review of Systems - Review of Systems Constitutional: reports: No Symptoms Eyes: reports: No Symptoms HENT: reports: No Symptoms Neck: reports: No Symptoms Cardiovascular: reports: Chest Pain Gastrointestinal: reports: No Symptoms Genitourinary: reports: No Symptoms Neurological: reports: Headache Psychiatric: reports: Anxiety Physical Exam Vital Signs: Vital Signs Temperature 97.9 F 05/18/18 05:26 Pulse Rate 50 L 05/18/18 05:21 Respiratory Rate 20 05/18/18 00:16 Blood Pressure 143/73 05/18/18 05:21 O2 Sat by Pulse Oximetry (%) 95 05/18/18 00:25 Constitutional: Yes: Well Nourished, No Distress Eyes: Yes: WNL HENT: Yes: WNL Neck: Yes: WNL Cardiovascular: Yes: Bradycardia Respiratory: Yes: CTA Bilaterally Gastrointestinal: Yes: Normal Bowel Sounds Musculoskeletal: Yes: WNL Extremities: Yes: WNL Edema: No Labs: CBC, BMP 05/18/18 02:54 05/18/18 02:54 Imaging - Results EKG: Image Reviewed (On 05/17/2018 at 20:49 Sinus carmen at 49/min.) Other: Report Reviewed (Echo: Normal bicentricular size and function. (+) diastolic dysfxn) Assessment/Plan 1) Chest pain -Atypical -has h/o anxiety and panic and this presentation similar to prior -ECg and troponin unremarkable for cardiac etiology of CP -had stress test last year with Dr. Butts, recalls being normal 2) Bradycardia -?symptoms with dizziness -hold Bystolic and monitor 3) HTN -well controlled -Continue Lisinopril
[2018-05-18] MEDS: LISINOPRIL 10 MG TABLET (FP) PO SCH (10:33)
--- NOTE | 2018-05-18 12:46 | PN ---
Progress Note, Physician History of Present Illness: pt seen/ examined chart reviewed sitting in chair feels tired - otherwise ok - Current Medication List Current Medications: Active Medications Allopurinol (Zyloprim -) 300 mg PO DAILY [facility] Last Admin: 05/18/18 09:41 Dose: 300 mg Aspirin (Asa -) 81 mg PO DAILY [facility] Atorvastatin Calcium (Lipitor -) 10 mg PO HS [facility] Finasteride (Proscar -) 5 mg PO HS [facility] Lisinopril (Prinivil) 10 mg PO DAILY [facility] Last Admin: 05/18/18 10:33 Dose: 10 mg Qeief-8-Hnpf Ethyl Esters (Lovaza -) 1 gm PO DAILY [facility] Last Admin: 05/18/18 09:41 Dose: 1 gm Oxybutynin Chloride (Ditropan -) 5 mg PO HS [facility] - Objective Vital Signs: Vital Signs Temperature 97.6 F 05/18/18 10:12 Pulse Rate 48 L 05/18/18 10:12 Respiratory Rate 20 05/18/18 10:12 Blood Pressure 133/83 05/18/18 10:12 O2 Sat by Pulse Oximetry (%) 98 05/18/18 10:00 Constitutional: Yes: No Distress, Anxious, Obese Eyes: Yes: Conjunctiva Clear Neck: Yes: Supple Cardiovascular: Yes: Bradycardia Respiratory: Yes: CTA Bilaterally Gastrointestinal: Yes: Soft Edema: No Neurological: Yes: Alert Psychiatric: Yes: Alert Labs: CBC, BMP 05/18/18 02:54 05/18/18 02:54 Problem List - Problems (1) DEBBI (acute kidney injury) Code(s): N17.9 - ACUTE KIDNEY FAILURE, UNSPECIFIED (2) Lightheaded Code(s): R42 - DIZZINESS AND GIDDINESS (3) Bradycardia Code(s): R00.1 - BRADYCARDIA, UNSPECIFIED (4) Chest pain Code(s): R07.9 - CHEST PAIN, UNSPECIFIED Qualifiers: Chest pain type: unspecified Qualified Code(s): R07.9 - Chest pain, unspecified (5) HTN (hypertension) Code(s): I10 - ESSENTIAL (PRIMARY) HYPERTENSION Assessment/Plan stable observe today discussed off bb will follow if stable - consider d/c in am
--- NOTE | 2018-05-18 15:38 | EKG ---
Test Reason : Blood Pressure : / mmHG Vent. Rate : 049 BPM Atrial Rate : 050 BPM P-R Int : 000 ms QRS Dur : 098 ms QT Int : 442 ms P-R-T Axes : 000 -08 048 degrees QTc Int : 399 ms POOR DATA QUALITY, INTERPRETATION MAY BE ADVERSELY AFFECTED SINUS BRADYCARDIA ABNORMAL ECG Confirmed by MAXINE PIMENTEL MD ([id number]) on 05/18/2018 3:38:30 PM Referred By: Confirmed By:MAXINE PIMENTEL MD
[2018-05-18] MEDS ORDERED: OXYBUTYNIN CHLORIDE 5 MG TABLET PO SCH (22:00)
[2018-05-18] MEDS ORDERED: ATORVASTATIN CA 10 MG TABLET (FP) PO SCH (22:00)
[2018-05-18] MEDS ORDERED: FINASTERIDE 5 MG TABLET (FP) PO SCH (22:00)
--- NOTE | 2018-05-19 09:09 | PN ---
Progress Note, Physician Chief Complaint: cp History of Present Illness: no more cp no diziness no palpit, sob no cigs - Current Medication List Current Medications: Active Medications Allopurinol (Zyloprim -) 300 mg PO DAILY [facility] Last Admin: 05/18/18 09:41 Dose: 300 mg Aspirin (Asa -) 81 mg PO DAILY [facility] Last Admin: 05/18/18 09:50 Dose: 81 mg Atorvastatin Calcium (Lipitor -) 10 mg PO [facility] Last Admin: 05/18/18 21:13 Dose: 10 mg Finasteride (Proscar -) 5 mg PO [facility] Last Admin: 05/18/18 21:14 Dose: 5 mg Lisinopril (Prinivil) 10 mg PO DAILY [facility] Last Admin: 05/18/18 10:33 Dose: 10 mg Htiah-8-Dkxp Ethyl Esters (Lovaza -) 1 gm PO DAILY [facility] Last Admin: 05/18/18 09:41 Dose: 1 gm Oxybutynin Chloride (Ditropan -) 5 mg PO [facility] Last Admin: 05/18/18 21:14 Dose: 5 mg - Objective Vital Signs: Vital Signs Temperature 98.2 F 05/19/18 06:35 Pulse Rate 40 L 05/19/18 06:35 Respiratory Rate 18 05/19/18 06:35 Blood Pressure 112/72 05/19/18 06:35 O2 Sat by Pulse Oximetry (%) 96 05/18/18 19:59 Constitutional: Yes: No Distress, Calm Eyes: No: Sclera Icterus HENT: No: Nasal Congestion Cardiovascular: Yes: Regular Rate and Rhythm, S1, S2, Other (PMI non diplaced). No: Gallop, Murmur Respiratory: Yes: CTA Bilaterally. No: Accessory Muscle Use, Rales, Wheezes Gastrointestinal: Yes: Normal Bowel Sounds, Soft. No: Tenderness Musculoskeletal: Yes: Other (No kyphosis) Extremities: No: Cold, Cyanosis Edema: No Integumentary: No: Jaundice Neurological: Yes: Alert, Oriented (x3) Psychiatric: No: Agitated Labs: CBC, BMP 05/18/18 02:54 05/18/18 02:54 Assessment/Plan EC05/17/2018 at 20:49 Sinus carmen at 49/min. Stress Echo 05/2016: 7.5 min, 81% MPHR. no isch STs, no ischemia, nl EF Echo 03/2018: nl LV/EF. nl RV. nl valves tele: NSR with sinus carmen to 40 bpm Assessment/Plan Chest pain -pt has chronic atypical chest pressure syndrome with mult prior negative stress tests. possibly sx of high BP vs anxiety (both of these generally co- exist in him) -pt poor historian but denies anxiety pre-dating the cp. sequence is usually + cp (or EMMANUEL/"lightheaded")--anxious and checks bp which is high -same events on DOA (bp 160/100 at home) -admits to incr anxiety recently b/c of nervious that recently rx'd b-yesi would lower HR and cause dizziness -no new sx's -no further cv testing indicated h/o dizziness -chronic sx described as "lightheadedness" occurs when BP high, vs when anxious (or both--see above) -improved with better bp control recently h/o presyncope/syncope, orthostatic: -prior h/o hypotension sx's with vol depletion (doesn't drink fluids sec to urinary freq + lasix tx) -orthostatics here: 143 supine-->134 standing. ok sinus bradycardia -chronic finding, never with associated suspected sx's -previously due to propranolol (for anxiety) -recently started on bystolic by dr jansen for improved bp control -sinus carmen again here, bystolic helled HTN -elevated at home, ? primary (causing cp) vs reactive/anxiety--as above -well controlled here -note: lisinopril incr'd from 10 qd to bid recently for hi bp with cp/EMMANUEL/dizzy sx's associated--bp improved, sx's resolved -recently bp hi at dr jansen so bystolic added--now stopped (as above) -anticipate bp will elevate at home after discharge (true htn vs anxiety related )--increase lisinopril to 15 mg bid -outpt bp f/u and repeat creat check DEBBI: -likely pre-renal in ER (predisposing factors outlined above) -given 1L normal saline--creat normalized -outpt f/u OK FOR D/C FROM CV POV
[2018-05-19] MEDS ORDERED: PT OWN MED DRAWER 7, Y5N ONE (10:13)
[2018-05-19] MEDS: OMEGA-3 ACID ETHYL ESTERS (FATTY-ACIDS) 1 GM CAPSULE (FP) PO SCH (10:20)
[2018-05-19] MEDS: ASPIRIN 81 MG CHEWABLE TABLETS PO SCH (10:20)
[2018-05-19] MEDS: LISINOPRIL 10 MG TABLET (FP) PO SCH (10:20)
[2018-05-19] MEDS: ALLOPURINOL 300 MG TABLET (FP) PO SCH (10:20)
[2018-05-19 11:59] VITALS: BP 139/71; PULSE 47; TEMP 98
--- NOTE | 2018-05-19 12:10 | DS ---
Physical Examination Vital Signs: Vital Signs Temperature 98 F 05/19/18 10:00 Pulse Rate 47 L 05/19/18 10:00 Respiratory Rate 20 05/19/18 10:00 Blood Pressure 139/71 05/19/18 10:00 O2 Sat by Pulse Oximetry (%) 98 05/19/18 10:00 Findings/Remarks: pt seen/ examined awake/ comfortable no issues today Labs: CBC, BMP 05/18/18 02:54 05/18/18 02:54 Discharge Summary Reason For Visit: ACUTE KIDNEY INJURY/CHEST PAIN AT REST Current Active Problems DEBBI (acute kidney injury) (Acute) Chest pain at rest (Acute) Lightheaded (Acute) Condition: Stable - Instructions Diet, Activity, Other Instructions: Please return to the emergency department with any new or worsening symptoms or concerns. 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 Referrals: Evans Butts MD [Staff Physician] - - Home Medications Comprehensive Discharge Medication List: Ambulatory Orders Allopurinol 300 mg PO DAILY 11/11/17 Aspirin [ASA -] 81 mg PO DAILY 11/11/17 Atorvastatin Ca [Lipitor] 10 mg PO HS 11/11/17 Finasteride [Proscar -] 5 mg PO HS 11/11/17 [place]-3 Fatty Acids/Fish Oil [Fish Oil 1,000 mg Capsule] 1,000 mg DAILY Oxybutynin Chloride 5 mg PO HS 11/11/17 Zolpidem Tartrate 10 mg PO PRN 11/11/17 Lisinopril [Prinivil] 15 mg PO BID 30 Days #60 tablet 05/19/18
[2018-05-19] MEDS ORDERED: LISINOPRIL 10 MG TABLET (FP) PO SCH (22:00)
== END 2018-05-19 13:22 | disposition home or self-care (01) ==
LOC: JER 20:41 → JERBED 22:20 → INTOOBSV 22:20 → J4S 05-18 00:04
PROVIDERS: ADMIT Internal Medicine; ATTEND Internal Medicine
PROC: 3E0337Z Introduction of Electrolytic and Water Balance Substance into Peripheral Vein, Percutaneous Approach (ICD-10-PCS; principal; 2018-05-17)
DX: R07.89 Other chest pain (principal); N17.9 Acute kidney failure, unspecified; R42 Dizziness and giddiness; I10 Essential (primary) hypertension; R00.1 Bradycardia, unspecified; M10.9 Gout, unspecified; Q61.3 Polycystic kidney, unspecified; Z79.82 Long term (current) use of aspirin; Z88.0 Allergy status to penicillin
CPT/HCPCS: 36415; 71046-TC-FY; 80048; 80053; 82550; 82553; 83735; 84100; 84484; 85025; 93005; 93010; 99283-25; G0378; J7030

== ENCOUNTER 2018-11-04 12:53 | Emergency (ER) | payer BC ==
[2018-11-04 13:15] VITALS: BP 156/91; PULSE 53; TEMP 98.3; BMI 41.0
--- NOTE | 2018-11-04 14:44 | PDOC ---
History of Present Illness - General Chief Complaint: Pain Stated Complaint: ABD. PAIN Time Seen by Provider: 11/04/18 14:17 History Source: Patient - History of Present Illness Timing/Duration: reports: intermittent Past History - Past Medical History Allergies/Adverse Reactions: Allergies Allergy/AdvReac Type Severity Reaction Status Date / Time Iodine and Iodide Containing Allergy Verified 11/04/18 13:07 Produc Penicillins Allergy Verified 11/04/18 13:07 Home Medications: Ambulatory Orders Allopurinol 300 mg PO DAILY 11/11/17 Aspirin [ASA -] 81 mg PO DAILY 11/11/17 Atorvastatin Ca [Lipitor] 10 mg PO HS 11/11/17 Finasteride [Proscar -] 5 mg PO HS 11/11/17 [place]-3 Fatty Acids/Fish Oil [Fish Oil 1,000 mg Capsule] 1,000 mg DAILY Oxybutynin Chloride 5 mg PO HS 11/11/17 Zolpidem Tartrate 10 mg PO PRN 11/11/17 Lisinopril [Prinivil] 15 mg PO BID 30 Days #60 tablet 05/19/18 Anemia: No Asthma: No Cancer: No Cardiac Disorders: No CVA: No COPD: No CHF: No Dementia: No Diabetes: No GI Disorders: No Disorders: No (poly cystic kidney dz) HTN: Yes Hypercholesterolemia: Yes Kidney Stones: No (polycystic kidney disea) Liver Disease: No Seizures: No Thyroid Disease: No - Immunization History Td Vaccination: Yes TDAP Vaccination: Yes Immunization Up to Date: No - Suicide/Smoking/Psychosocial Hx Smoking History: Never smoked Have you smoked in the past 12 months: No Number of Cigarettes Smoked Daily: 1 Cigars Per Day: 2 'Breaking Loose' booklet given: 05/04/16 Hx Alcohol Use: No Drug/Substance Use Hx: No Substance Use Type: None Hx Substance Use Treatment: No Review of Systems - Review of Systems Constitutional: No: Chills, Fever Respiratory: No: Cough, Shortness of Breath Cardiac (ROS): Yes: Lightheadedness. No: Palpitations ABD/GI: No: Nausea, Vomiting *Physical Exam - Vital Signs Last Vital Signs Temp Pulse Resp BP Pulse Ox 98.3 F 53 L 16 156/91 99 11/04/18 13:00 11/04/18 13:00 11/04/18 13:00 11/04/18 13:00 11/04/18 13:00 - Physical Exam General Appearance: Yes: Appropriately Dressed. No: Apparent Distress HEENT: positive: Normal Voice Neck: positive: Supple Respiratory/Chest: positive: Lungs Clear, Normal Breath Sounds. negative: Respiratory Distress Gastrointestinal/Abdominal: positive: Soft. negative: Tender Musculoskeletal: negative: CVA Tenderness Integumentary: positive: Dry, Warm Neurologic: positive: Fully Oriented, Alert, Normal Mood/Affect ED Treatment Course - LABORATORY CBC & Chemistry Diagram: 11/04/18 15:08 11/04/18 15:08 Medical Decision Making - Medical Decision Making 11/04/18 14:44 63 yo M, h/o anxiety, panic attacks, HTN, PKD, gout, here w/ chest tightness. Pt states for the past 2 nights he has had sudden onset chest tightness w/ dizziness that lasts for 20 minutes then resolves. No worsening factors. States symptoms not present during the day. No diaphoresis, shortness of breath , palpitations, nausea or vomiting. Patient states he was seen by his PMD yesterday who told patient it might be "gas" or his anxiety, but told him to come to ED if symptoms worsen. Patient denies any history of CAD and had normal stress test last year per pt. Patient states current symptoms feel somewhat similar to his usual anxiety, but wanted to be checked out. Not on any anxiolytics see exam Recurrent chest tightness Not great story for CAD (neg stress 1 yr ago), unlikely PE, no concern for dissection, ?anxiety component Stable and well shruthi here w/ clear chest/lungs -ekg -labs -anticipate discharge 11/04/18 15:22 11/04/18 16:52 EKG, chest x-ray and labs negative. No need for serial troponin, given duration of symptoms as discussed with ED attending. Patient has remained stable and asymptomatic in ED. Will dc to continue following up with his PMD *DC/Admit/Observation/Transfer Diagnosis at time of Disposition: Chest tightness - Discharge Dispostion Disposition: HOME Condition at time of disposition: Good - Referrals Referrals: Jumana Jacinto MD [Primary Care Provider] - - Patient Instructions Additional Instructions: The labs/EKG and CXR were all normal today Please follow up with your PMD if pain persists - Post Discharge Activity
[2018-11-04 16:35] LABS: ALBUMIN 3.7 g/dl (3.4-5.0); BILIRUBIN,TOTAL 0.9 mg/dL (0.2-1); BLOOD UREA NITROGEN 21.8 mg/dL (7-18); CREATININE 1.4 mg/dL (0.55-1.3); POTASSIUM 4.1 mmol/L (3.5-5.1); TOT PROT 7.7 g/dl (6.4-8.2)
[2018-11-04 16:36] LABS: BASO % 0.4 % (0-2.0); EOS % 1.7 % (0-4.5); HEMATOCRIT 44.2 % (35.4-49); HEMOGLOBIN 15.1 GM/dL (11.7-16.9); LYMPH % 27.9 % (8-40); MCH 32.9 pg (25.7-33.7); MCHC 34.1 g/dl (32.0-35.9); MEAN CELL VOLUME 96.6 fl (80-96); MEAN PLT VOLUME 8.5 fl (7.5-11.1); MONO % 5.7 % (3.8-10.2); NEUT % 64.3 % (42.8-82.8); PLATELET COUNT 257 K/MM3 (134-434); RBC 4.58 M/mm3 (4.00-5.60); RDW 13.9 % (11.9-15.9); WHITE BLOOD COUNT 9.9 K/mm3 (4.0-10.0)
--- NOTE | 2018-11-05 08:23 | EKG ---
Test Reason : Blood Pressure : / mmHG Vent. Rate : 049 BPM Atrial Rate : 049 BPM P-R Int : 174 ms QRS Dur : 092 ms QT Int : 426 ms P-R-T Axes : 023 -11 038 degrees QTc Int : 384 ms SINUS BRADYCARDIA MINIMAL VOLTAGE CRITERIA FOR LVH, MAY BE NORMAL VARIANT BORDERLINE ECG WHEN COMPARED WITH ECG OF 17-MAY-2018 20:49, SINUS RHYTHM HAS REPLACED JUNCTIONAL RHYTHM Confirmed by CAIO JOSEPH, TAVARES ([id number]) on 11/05/2018 8:23:12 AM Referred By: Confirmed By:TAVARES KEARNEY MD
== END 2018-11-04 16:55 | disposition home or self-care (01) ==
LOC: JER 12:53
DX: R07.89 Other chest pain (principal); I10 Essential (primary) hypertension; E78.00 Pure hypercholesterolemia, unspecified; Z88.0 Allergy status to penicillin
CPT/HCPCS: 36415; 71046-TC-FY; 80053; 82550; 83690; 84484; 85025; 93005; 93010; 99282-25

== ENCOUNTER 2018-11-29 14:50 | Emergency (ER) | payer BC | END 2018-11-29 19:06 | disposition left against medical advice (07) | LOC: JER 14:50 ==

== ENCOUNTER 2019-02-10 08:01 | Day surgery (SDC) | payer BC ==
[2019-02-09 15:19] VITALS: BMI 41.4
[2019-02-10 09:44] VITALS: TEMP 98
[2019-02-10 12:00] VITALS: BP 122/91; PULSE 54
--- NOTE | 2019-02-12 15:35 | PATH ---
Surgical Pathology Report Patient Name: HUY [facility]EM[facility]. Rec. #: [id number] /Age/Gender: 1955 (Age: 63) / M Account: [id number] Location: [facility]-ENDOSCOPY Taken: 02/10/2019 Received: 02/10/2019 Reported: 02/12/2019 Physicians: Luis Daniel Radford M.D. Specimen(s) Received ANTRUM Clinical History History of colon adenoma, abdominal pain Postoperative diagnosis: Normal EGD, colon diverticuli Final Diagnosis STOMACH, ANTRUM, BIOPSY: GASTRIC ANTRAL MUCOSA WITH MILD CHRONIC GASTRITIS. IMMUNOHISTOCHEMICAL STAIN FOR H. PYLORI IS NEGATIVE. Electronically Signed Leandra Rodriguez M.D. Gross Description Received in formalin, labeled "biopsy antrum" are 2 mckenna, irregular portions of soft tissue measuring 0.3 and 0.4 cm. in greatest dimension. The specimens are submitted in toto in one cassette. /02/10/2019 saudi/02/10/2019
== END 2019-02-10 10:45 | disposition home or self-care (01) ==
LOC: JASU-ENDO 08:01
PROVIDERS: ATTEND Internal Medicine Gastroenterology
PROC: 0DB68ZX Excision of Stomach, Via Natural or Artificial Opening Endoscopic, Diagnostic (ICD-10-PCS; 2019-02-10)
PROC: 0DJD8ZZ Inspection of Lower Intestinal Tract, Via Natural or Artificial Opening Endoscopic (ICD-10-PCS; principal; 2019-02-10 09:30)
DX: Z86.010 Personal history of colon polyps (principal); K57.30 Diverticulosis of large intestine without perforation or abscess without bleeding; K29.50 Unspecified chronic gastritis without bleeding; I10 Essential (primary) hypertension; N40.0 Benign prostatic hyperplasia without lower urinary tract symptoms; R10.13 Epigastric pain

== ENCOUNTER 2019-05-29 20:22 | Emergency (ER) | payer BC ==
[2019-05-29 20:32] VITALS: TEMP 97.8; BMI 41.3
[2019-05-29 21:29] LABS: BASO % 0.7 % (0-2.0); EOS % 2.2 % (0-4.5); HEMATOCRIT 40.7 % (35.4-49); HEMOGLOBIN 14.1 GM/dL (11.7-16.9); LYMPH % 26.4 % (8-40); MCH 33.8 pg (25.7-33.7); MCHC 34.7 g/dl (32.0-35.9); MEAN CELL VOLUME 97.5 fl (80-96); MONO % 8.3 % (3.8-10.2); NEUT % 62.4 % (42.8-82.8); PLATELET COUNT 240 K/MM3 (134-434); RBC 4.17 M/mm3 (4.00-5.60); RDW 14.3 % (11.9-15.9); WHITE BLOOD COUNT 8.4 K/mm3 (4.0-10.0)
[2019-05-29 21:41] LABS: INR 1.07 (0.83-1.09); PROTHROMBIN TIME (PATIENT) 12.6 SEC (9.7-13.0)
[2019-05-29 22:08] LABS: ALBUMIN 3.3 g/dl (3.4-5.0); ALK PHOS 48 U/L (45-117); ANION GAP 6 MMOL/L (8-16); BILIRUBIN,TOTAL 0.3 mg/dL (0.2-1); BLOOD UREA NITROGEN 30.7 mg/dL (7-18); CALCIUM 8.6 mg/dL (8.5-10.1); CHLORIDE 109 mmol/L (98-107); CO2 25 mmol/L (21-32); CREATININE 1.6 mg/dL (0.55-1.3); GLUCOSE,RANDOM 114 mg/dL (74-106); SGOT/AST 21 U/L (15-37); SGPT/ALT 30 U/L (13-61); SODIUM 139 mmol/L (136-145)
--- NOTE | 2019-05-29 22:18 | PDOC ---
Documentation entered by Kishan Frederick SCRIBE, acting as scribe for Lindsay Sanches MD. Lindsay Sanches MD: This documentation has been prepared by the sherwineOtoniel Angel, SCRIBE, under my direction and personally reviewed by me in its entirety. I confirm that the documentation accurately reflects all work, treatment, procedures, and medical decision making performed by me. History of Present Illness - General Chief Complaint: Chest Pain Stated Complaint: CHEST PAIN Time Seen by Provider: 05/29/19 20:54 History Source: Patient Exam Limitations: No Limitations - History of Present Illness Initial Comments: 05/29/19 21:34 The patient is a 63 year old male, with a significant past medical history of anxiety, panic attacks, HTN, PKD, gout, who presents to the emergency department with elevated blood pressure since earlier today. Patient reports he was home dozing off in his chair when he got a sinking feeling. He stood up, and immediately did not feel well. He states his then checked his blood pressure, saw that is was elevated which prompted them to come into the ED. Patient states he has been experiencing tightness in the chest as well as dizziness. Patient has had panic attacks in the past noting that this is similar. Patient was recently prescribed Spironolactone (25 mg) which he started taking last night. Patient denies fever/chills, change in urgency, SOB or any other symptoms. Allergies: Penicillin Past History - Past Medical History Allergies/Adverse Reactions: Allergies Allergy/AdvReac Type Severity Reaction Status Date / Time Iodine and Iodide Containing Allergy Verified 05/29/19 20:32 Produc Penicillins Allergy Verified 05/29/19 20:32 Home Medications: Ambulatory Orders Allopurinol 300 mg PO DAILY 11/11/17 Atorvastatin Ca [Lipitor] 10 mg PO HS 11/11/17 Finasteride [Proscar -] 5 mg PO HS 11/11/17 [place]-3 Fatty Acids/Fish Oil [Fish Oil 1,000 mg Capsule] 1,000 mg PO DAILY 11/11 Oxybutynin Chloride 5 mg PO HS 11/11/17 Ascorbic Acid [Vitamin C] 1 tab PO DAILY 02/09/19 Pyridoxine HCl (B-6) [Vitamin B6] 100 mg PO DAILY 02/09/19 Lisinopril [Prinivil] 20 mg PO BID 02/10/19 Anemia: No Asthma: No Cancer: No Cardiac Disorders: No CVA: No COPD: No CHF: No Dementia: No Diabetes: No GI Disorders: No Disorders: No (POLYCYSTIC KIDNEY DISEASE, ENLARGED PROSTATE) HTN: Yes Hypercholesterolemia: Yes Kidney Stones: No (polycystic kidney disea) Liver Disease: No Seizures: No Thyroid Disease: No - Immunization History Td Vaccination: Yes TDAP Vaccination: Yes Immunization Up to Date: No - Psycho Social/Smoking Cessation Hx Smoking History: Never smoked Have you smoked in the past 12 months: No Number of Cigarettes Smoked Daily: 1 Cigars Per Day: 2 'Breaking Loose' booklet given: 05/04/16 Hx Alcohol Use: Yes (QUIT IN 1998) Drug/Substance Use Hx: Yes (QUIT 1988) Substance Use Type: None Hx Substance Use Treatment: No Review of Systems - Review of Systems Able to Perform ROS?: Yes Comments:: 05/29/19 21:35 GENERAL/CONSTITUTIONAL: +Elevated blood pressure. +Dizziness. +Not feeling well. No fever or chills. No weakness. HEAD, EYES, EARS, NOSE AND THROAT: No change in vision. No ear pain or discharge. No sore throat. CARDIOVASCULAR: +Chest tightness. No shortness of breath. RESPIRATORY: No cough, wheezing, or hemoptysis. GASTROINTESTINAL: No nausea, vomiting, diarrhea or constipation. GENITOURINARY: No dysuria, frequency, or change in urination. MUSCULOSKELETAL: No joint or muscle swelling or pain. No neck or back pain. SKIN:No rash.. NEUROLOGIC: No headache, vertigo, loss of consciousness, or change in strength/ sensation. ENDOCRINE: No increased thirst. No abnormal weight change. HEMATOLOGIC/LYMPHATIC: No anemia, easy bleeding, or history of blood clots. ALLERGIC/IMMUNOLOGIC: No hives or skin allergy. *Physical Exam - Vital Signs Last Vital Signs Temp Pulse Resp BP Pulse Ox 97.8 F 58 L 18 159/97 99 05/29/19 20:29 05/29/19 20:29 05/29/19 20:29 05/29/19 20:29 05/29/19 20:29 - Physical Exam 05/29/19 21:35 GENERAL: Awake, alert, and fully oriented, in no acute distress HEAD: No signs of trauma EYES: PERRLA, EOMI, sclera anicteric, conjunctiva clear ENT: Auricles normal inspection, hearing grossly normal, nares patent, oropharynx clear without exudates. Moist mucosa NECK: Normal ROM, supple, no lymphadenopathy, JVD, or masses LUNGS: Breath sounds equal, clear to auscultation bilaterally. No wheezes, and no crackles HEART: Regular rate and rhythm, normal S1 and S2, no murmurs, rubs or gallops ABDOMEN: +Obese abdomen. Soft, nontender, normoactive bowel sounds. No guarding , no rebound. No masses EXTREMITIES: Normal range of motion, no edema. No clubbing or cyanosis. No cords, erythema, or tenderness NEUROLOGICAL: Cranial nerves II through XII grossly intact. Normal speech, normal gait SKIN:+Rash on right side of neck. Warm, Dry, normal turgor, or noted. ED Treatment Course - LABORATORY CBC & Chemistry Diagram: 05/29/19 21:10 05/29/19 21:10 - ADDITIONAL ORDERS Additional order review: Laboratory Results 05/29/19 05/29/19 21:10 21:10 PT with INR 12.60 INR 1.07 Sodium 139 Potassium 4.0 Chloride 109 H Carbon Dioxide 25 Anion Gap 6 L BUN 30.7 H Creatinine 1.6 H Est GFR (CKD-EPI)AfAm 52.73 Est GFR (CKD-EPI)NonAf 45.50 Random Glucose 114 H Calcium 8.6 Total Bilirubin 0.3 AST 21 ALT 30 Alkaline Phosphatase 48 Creatine Kinase 220 Troponin I < 0.02 Total Protein 7.0 Albumin 3.3 L 05/29/19 21:10 RBC 4.17 MCV 97.5 H MCHC 34.7 RDW 14.3 MPV 8.0 Neutrophils % 62.4 Lymphocytes % 26.4 Monocytes % 8.3 Eosinophils % 2.2 D Basophils % 0.7 - RADIOLOGY Radiology Studies Ordered: Category Date Time Status CHEST PA & LAT [RAD] Stat Radiology 05/29/19 20:54 Taken Medical Decision Making - Medical Decision Making 05/29/19 22:18 CXR normal EKG normal Labs normal Trop normal CPK pending 05/29/19 22:33 Pt has normal cardiac enzymes. He's anxious and ready to go home Pt admits that he went out to eat today and ingested a lot of salty food. He has been having high BP reads anyway which is why his PMD started him on spironolactone. He got anxious when his BP was elevated and he came to the ER. Discharge - Discharge Information Problems reviewed: Yes Clinical Impression/Diagnosis: Atypical chest pain, Hypertension Condition: Stable Disposition: HOME - Admission No - Follow up/Referral Referrals: Jumana Jacinto MD [Primary Care Provider] - - Patient Discharge Instructions Patient Printed Discharge Instructions: Eating a Diet Rich in Fruits and Vegetables - Post Discharge Activity
[2019-05-29] MEDS ORDERED: HYDROCHLOROTHIAZIDE 25 MG TABLET (FP) PO ONE (22:19)
[2019-05-29] MEDS ORDERED: HYDROCHLOROTHIAZIDE 25 MG TABLET (FP) ONE (22:44)
[2019-05-29 23:25] VITALS: BP 138/83; PULSE 54
--- NOTE | 2019-05-30 17:07 | EKG ---
Test Reason : Blood Pressure : / mmHG Vent. Rate : 055 BPM Atrial Rate : 055 BPM P-R Int : 182 ms QRS Dur : 096 ms QT Int : 424 ms P-R-T Axes : 049 -18 069 degrees QTc Int : 405 ms POOR DATA QUALITY, INTERPRETATION MAY BE ADVERSELY AFFECTED SINUS BRADYCARDIA INCOMPLETE RIGHT BUNDLE BRANCH BLOCK BORDERLINE ECG WHEN COMPARED WITH ECG OF 29-NOV-2018 14:55, INCOMPLETE RIGHT BUNDLE BRANCH BLOCK IS NOW PRESENT CLINICAL CORRELATION IS RECOMMENDED BASELINE ARTIFACT Confirmed by RADHA WILKES MD ([id number]) on 05/30/2019 5:06:40 PM Referred By: Confirmed By:RADHA WILKES MD
== END 2019-05-29 22:55 | disposition home or self-care (01) ==
LOC: JER 20:22
DX: R07.89 Other chest pain (principal); I10 Essential (primary) hypertension; E78.00 Pure hypercholesterolemia, unspecified; N40.0 Benign prostatic hyperplasia without lower urinary tract symptoms; Q61.3 Polycystic kidney, unspecified; Z88.0 Allergy status to penicillin; Z91.041 Radiographic dye allergy status
CPT/HCPCS: 36415; 71046-TC-FY; 80053; 82550; 82553; 84484; 85025; 85610; 93005; 93010; 99285-25

== ENCOUNTER 2019-12-08 19:29 | Observation (INO) | payer BC ==
--- NOTE | 2019-12-08 20:09 | PDOC ---
Rapid Medical Evaluation Time Seen by Provider: 12/08/19 20:05 Medical Evaluation: Allergies Allergy/AdvReac Type Severity Reaction Status Date / Time Iodine and Iodide Containing Allergy Verified 05/29/19 20:32 Produc Penicillins Allergy Verified 05/29/19 20:32 12/08/19 20:05 HPI: 64 year old male pmhx HTN PCKD GERD Gout, diverticulitis on cipro complaining of dizziness and pre syncope x 3 days. Took BP at home in the low 90's states that his normal is in the 130's. Denies N/V/D PE: CTA RRR Abdomen NonTTP neuro grossly intact A/P: EKG Labs Pt to precede to ED for further evaluation and treatment.
[2019-12-08 20:16] VITALS: BMI 38.7
--- NOTE | 2019-12-08 21:08 | PDOC ---
*Physical Exam - Vital Signs Last Vital Signs Temp Pulse Resp BP Pulse Ox 98.2 F 66 20 108/81 98 12/08/19 20:03 12/08/19 20:03 12/08/19 20:03 12/08/19 20:03 12/08/19 20:03 ED Treatment Course - LABORATORY CBC & Chemistry Diagram: 12/08/19 20:50 12/08/19 20:50 Medical Decision Making - Medical Decision Making 12/08/19 21:07 Patient seen by the advanced practice provider under my supervision. Ancillary testing reviewed as necessary. I agree with plan as outlined by the advanced practice provider. Discharge - Discharge Information Problems reviewed: Yes Clinical Impression/Diagnosis: Lightheaded Abdominal pain Qualifiers: Abdominal location: left lower quadrant Qualified Code(s): R10.32 - Left lower quadrant pain - Follow up/Referral - Patient Discharge Instructions - Post Discharge Activity
[2019-12-08 21:24] LABS: BASO % 0.8 % (0-2.0); EOS % 1.9 % (0-4.5); HEMATOCRIT 41.8 % (35.4-49); HEMOGLOBIN 14.2 GM/dL (11.7-16.9); LYMPH % 31.6 % (8-40); MCH 33.5 pg (25.7-33.7); MCHC 34.1 g/dl (32.0-35.9); MEAN CELL VOLUME 98.2 fl (80-96); MEAN PLT VOLUME 8.4 fl (7.5-11.1); NEUT % 56.7 % (42.8-82.8); PLATELET COUNT 232 K/MM3 (134-434); RBC 4.25 M/mm3 (4.00-5.60); RDW 13.7 % (11.9-15.9); WHITE BLOOD COUNT 7.9 K/mm3 (4.0-10.0)
[2019-12-08 21:30] LABS: INR 1.13 (0.83-1.09); PROTHROMBIN TIME (PATIENT) 13.4 SEC (9.7-13.0)
--- NOTE | 2019-12-08 21:33 | PDOC ---
History of Present Illness - General Chief Complaint: Lightheaded Stated Complaint: LOW BP/ABD PAIN Time Seen by Provider: 12/08/19 20:05 History Source: Patient - History of Present Illness Initial Comments: 12/08/19 23:45 64-year-old male complaining of lightheadedness and weakness with left lower abdominal pain for a week. Patient reports that he was seen by his PCP and was started on Cipro 3 days ago. Denies fever/chills, nausea, vomiting, diarrhea. Patient has been diagnosed with diverticulitis by PCP this past week. Patient reports that since he started having pain he has been on a liquid diet and decreased p.o. overall abdominal pain has improved however now noted to have low b/p and near syncope. Past medical history of hypertension, polycystic kidney, hypercholesteremia PCP: Dr. Jumana Jacinto Nephrology: dr. Kalina jacinto Past History - Medical History Allergies/Adverse Reactions: Allergies Allergy/AdvReac Type Severity Reaction Status Date / Time Iodine and Iodide Containing Allergy Verified 05/29/19 20:32 Produc Penicillins Allergy Verified 05/29/19 20:32 Home Medications: Ambulatory Orders Allopurinol 300 mg PO DAILY 11/11/17 Atorvastatin Ca [Lipitor] 10 mg PO HS 11/11/17 Finasteride [Proscar -] 5 mg PO HS 11/11/17 [place]-3 Fatty Acids/Fish Oil [Fish Oil 1,000 mg Capsule] 1,000 mg PO DAILY 11/11/17 Oxybutynin Chloride 5 mg PO HS 11/11/17 Ascorbic Acid [Vitamin C] 1 tab PO DAILY 02/09/19 Pyridoxine HCl (B-6) [Vitamin B6] 100 mg PO DAILY 02/09/19 Lisinopril [Prinivil] 20 mg PO BID 02/10/19 Anemia: No Asthma: No Cancer: No Cardiac Disorders: No CVA: No COPD: No CHF: No Dementia: No Diabetes: No GI Disorders: No Disorders: No (POLYCYSTIC KIDNEY DISEASE, ENLARGED PROSTATE) HTN: Yes Hypercholesterolemia: Yes Kidney Stones: No (polycystic kidney disea) Liver Disease: No Seizures: No Thyroid Disease: No - Immunization History Td Vaccination: Yes TDAP Vaccination: Yes Immunization Up to Date: No - Psycho-Social/Smoking History Smoking History: Never smoked Have you smoked in the past 12 months: No Number of Cigarettes Smoked Daily: 1 Cigars Per Day: 2 'Breaking Loose' booklet given: 05/04/16 - Substance Abuse Hx (Audit-C & DAST Scrn) How often the patient has a drink containing alcohol: Monthly or less Number of drinks the patient has on a typical day: 1 or 2 How often the patient has six or more drinks on one occasion: Never Score: In Men: 4 or > Positive; In Women: 3 or > Positive: 1 Screen Result (Pos requires Nsg. Audit-10AR): Negative Review of Systems - Review of Systems Able to Perform ROS?: Yes Is the patient limited Mosotho proficient: No Constitutional: No: Symptoms Reported, See HPI, Chills, Diaphoresis, Fever, Loss of Appetite, Malaise, Night Sweats, Weakness, Weight Stable, Unintentional Wgt. Loss, Unexplained wgt Loss, Other Cardiac (ROS): Yes: Lightheadedness. No: Symptoms Reported, See HPI, Chest Pain, Edema, Irregular Heart Rate, Palpitations, Syncope, Chest Tightness, Other ABD/GI: Yes: Abdominal cramping. No: Symptoms Reported, See HPI, Abdominal Distended, Abd. Pain w/ defecation, Blood Streaked Bowels, Constipated, Diarrhea, Difficulty Swallowing, Nausea, Poor Appetite, Poor Fluid Intake, Rectal Bleeding, Vomiting, Indigestion, Tarry Stools, Other : No: Symptoms Reported, See HPI, Burning, Dysuria, Discharge, Frequency, Flank Pain, Hematuria, Incontinence, Pain, Urgency, Testicular Mass, Testicular Swelling, Lesions, Testicular Pain, Other Musculoskeletal: No: Symptoms Reported, See HPI, Back Pain, Gout, Joint Pain, Joint Swelling, Muscle Pain, Muscle Weakness, Neck Pain, Joint Stiffness, Other *Physical Exam - Vital Signs Last Vital Signs Temp Pulse Resp BP Pulse Ox 98.2 F 66 20 108/81 98 12/08/19 20:03 12/08/19 20:03 12/08/19 20:03 12/08/19 20:03 12/08/19 20:03 - Physical Exam General Appearance: Yes: Appropriately Dressed Respiratory/Chest: positive: Lungs Clear, Normal Breath Sounds Cardiovascular: positive: Regular Rhythm, Regular Rate Gastrointestinal/Abdominal: positive: Normal Bowel Sounds, Tender (LLQ), Soft Musculoskeletal: positive: Normal Inspection. negative: CVA Tenderness Integumentary: positive: Normal Color, Dry, Warm Neurologic: positive: telesales professional II-XII NML intact, Fully Oriented, Alert, Normal Mood/Affect Heart Score/ECG Review - History History: Slightly suspicious - Electrocardiogram EKG: Normal - Age Age: 45-65 - Risk Factors Risk Factors Heart Score: Yes Hx Hypercholesterolemia, Yes Hx Hypertension, Yes Hx Obesity Based on the list above the patient has:: >/=3 risk factors or Hx atherosclerotic disease - Troponin Troponin: </= normal limit - Score Heart Score - Total: 3 - ECG Intrepretation Rhythm: Regular Rhythm Comment:: 12/09/19 02:37 NSR: 60bpm ED Treatment Course - LABORATORY CBC & Chemistry Diagram: 12/08/19 20:50 12/08/19 20:50 - ADDITIONAL ORDERS Additional order review: Laboratory Results 12/08/19 20:50 PT with INR 13.40 H INR 1.13 H - RADIOLOGY Radiology Studies Ordered: Category Date Time Status CHEST PA & LAT [RAD] Stat Radiology 12/08/19 20:25 Taken Medical Decision Making - Medical Decision Making A: near syncope; abdominal pain P: cbc cmp CTAP UA cardiac : CK MB/ CPK elevated. 12/09/19 03:03 CTAP: Calcified granuloma within the right dome of the liver No gallstones No evidence of nephrolithiasis, ureterolithiasis, or obstructive uropathy Bilateral cortical renal cysts Colonic diverticulosis without evidence of acute diverticulitis Normal appendix No evidence of intestinal obstruction, perforation, colitis, pancreatitis, free fluid, or an intra-abdominal or pelvic abscess Degenerative changes of the spine 12/09/19 05:25 12/09/19 05:26 Discharge - Discharge Information Problems reviewed: Yes Clinical Impression/Diagnosis: Syncope, near Abdominal pain Qualifiers: Abdominal location: left lower quadrant Qualified Code(s): R10.32 - Left lower quadrant pain Acute renal failure Qualifiers: Acute renal failure type: unspecified Qualified Code(s): N17.9 - Acute kidney f ailure, unspecified - Follow up/Referral - Patient Discharge Instructions - Post Discharge Activity
[2019-12-08 21:34] LABS: EPI CELLS 31 /uL (0-25.1); HYALINE CASTS 1 /uL (0-3.1); URINE APPEARANCE CLEAR; URINE BACTERIA 6 /uL (0-1359); URINE BILIRUBIN NEGATIVE (NEGATIVE); URINE COLOR YELLOW; URINE GLUCOSE (UA) NEGATIVE (NEGATIVE); URINE KETONE NEGATIVE (NEGATIVE); URINE LEUK ESTERASE 1+ (NEGATIVE); URINE NITRITE NEGATIVE (NEGATIVE); URINE PROTEIN NEGATIVE (NEGATIVE); URINE RBC 6 /uL (0-23.9); URINE WBC 51 /uL (0-25.8)
[2019-12-08] MEDS ORDERED: SODIUM CHLORIDE 1,000 ML IV STA (21:34)
[2019-12-08 21:56] LABS: ALBUMIN 3.7 g/dl (3.4-5.0); ALK PHOS 50 U/L (45-117); ANION GAP 10 MMOL/L (8-16); BILIRUBIN,TOTAL 0.9 mg/dL (0.2-1); CALCIUM 9.1 mg/dL (8.5-10.1); CHLORIDE 102 mmol/L (98-107); CO2 22 mmol/L (21-32); CREATININE 2.5 mg/dL (0.55-1.3); GLUCOSE,RANDOM 91 mg/dL (74-106); LIPASE 211 U/L (73-393); N-TERMINAL BNP 45.7 pg/ml (5-125); POTASSIUM 4.1 mmol/L (3.5-5.1); SGOT/AST 34 U/L (15-37); SGPT/ALT 39 U/L (13-61); SODIUM 134 mmol/L (136-145); TOT PROT 7.8 g/dl (6.4-8.2)
--- NOTE | 2019-12-09 05:40 | HP ---
CHIEF COMPLAINT:lightheadedness and left lower quadrant abdominal pain PCP: Dr. Jumana Mcgraw Accounts Payables Clerk: Dr. Luis Daniel Radford Manager City: Dr. Butts Occupational Therapist Rehab Manager: Dr. Trey Jacinto HISTORY OF PRESENT ILLNESS: 64-year-old male with past medical history of polycystic kidney disease (baseline creatinine 1.1-1.6), hypertension and hyperlipidemia who presents with symptoms of lightheadedness, weakness and left lower abdominal pain ongoing for a week. Patient reports that he was seen by his PCP and he was started on Cipro on Saturday (4 days ago) for diverticulitis. He denied fever/chills, nausea, vomiting, or diarrhea. Patient reports that since he started having pain he has been on a liquid diet and decreased oral intake and overall abdominal pain has improved however now noted to have low b/p with SBP in the low 90's and near syncopy. He reports he has intermittent chest pain which is chronic for him and sees Dr. Butts. He reports he had a stress test in the past. He also reports a history of GERD. ER course notable for: 1. acute on chronic renal failure- BUN 30/creatinine 2.5 (baseline range between 1.1-1.6) 2. CK-MB 6, creatinine kinase 770, troponin normal 3. UA- 1+ leukoesterase 4. CTAP 12/09/2019 Calcified granuloma within the right dome of the liver No gallstones No evidence of nephrolithiasis, ureterolithiasis, or obstructive uropathy Bilateral cortical renal cysts Colonic diverticulosis without evidence of acute diverticulitis Normal appendix No evidence of intestinal obstruction, perforation, colitis, pancreatitis, free fluid, or an intra-abdominal or pelvic abscess Degenerative changes of the spine Recent Travel: denies PAST MEDICAL HISTORY: polycystic kidney disease hypertension hyperlipidemia PAST SURGICAL HISTORY: none Social History: Smoking:no Alcohol:yes, quit in 1998 Drugs: yes, quit in 1988 Family History: noncontributory Allergies Iodine and Iodide Containing Produc Allergy (Verified 05/29/19 20:32) Penicillins Allergy (Verified 05/29/19 20:32) HOME MEDICATIONS: Home Medications Medication Instructions Recorded Allopurinol 300 mg PO DAILY 11/11/17 Atorvastatin Ca [Lipitor] 10 mg PO HS 11/11/17 Finasteride [Proscar -] 5 mg PO HS 11/11/17 [place]-3 Fatty Acids/Fish Oil [Fish 1,000 mg PO DAILY 11/11/17 Oil 1,000 mg Capsule] Oxybutynin Chloride 5 mg PO HS 11/11/17 Ascorbic Acid [Vitamin C] 1 tab PO DAILY 02/09/19 Pyridoxine HCl (B-6) [Vitamin B6] 100 mg PO DAILY 02/09/19 Lisinopril [Prinivil] 20 mg PO BID 02/10/19 REVIEW OF SYSTEMS CONSTITUTIONAL: Absent: fever, chills, diaphoresis, generalized weakness, malaise, loss of appetite, weight change HEENT: Absent: rhinorrhea, nasal congestion, throat pain, throat swelling, difficulty swallowing, mouth swelling, ear pain, eye pain, visual changes CARDIOVASCULAR: Absent: chest pain, near syncopy, palpitations, irregular heart rate, lightheadedness, peripheral edema RESPIRATORY: Absent: cough, shortness of breath, dyspnea with exertion, orthopnea, wheezing, stridor, hemoptysis GASTROINTESTINAL: Absent: left lower quadrant abdominal pain, abdominal distension, nausea, vomiting, diarrhea, constipation, melena, hematochezia GENITOURINARY: Absent: dysuria, frequency, urgency, hesitancy, hematuria, flank pain, genital pain MUSCULOSKELETAL: Absent: myalgia, arthralgia, joint swelling, back pain, neck pain SKIN: Absent: rash, itching, pallor HEMATOLOGIC/IMMUNOLOGIC: Absent: easy bleeding, easy bruising, lymphadenopathy, frequent infections ENDOCRINE: Absent: unexplained weight gain, unexplained weight loss, heat intolerance, cold intolerance NEUROLOGIC: Absent: headache, focal weakness or paresthesias, dizziness, unsteady gait, s eizure, mental status changes, bladder or bowel incontinence PSYCHIATRIC: Absent: anxiety, depression, suicidal or homicidal ideation, hallucinations. PHYSICAL EXAMINATION Vital Signs - 24 hr 12/08/19 20:03 Temperature 98.2 F Pulse Rate 66 Respiratory 20 Rate Blood Pressure 108/81 O2 Sat by Pulse 98 Oximetry (%) General no acute distress Vital signs reviewed afebrile Neuro awake alert and oriented X3 moving all extremities no neuro deficits Neck no JVD Lungs CTA nonlabored breathing effort no rales no wheezing Heart s1s2 rate regular Abdomen LLQ tenderness last BM 3 days ago Extremities 1+edema present bilaterally warm on palpation Skin nail beds and lips pink Laboratory Results - last 24 hr 12/08/19 12/08/1912/07/20 20:50 20:50 20:50 WBC 7.9 RBC 4.25 Hgb 14.2 Hct 41.8 MCV 98.2 H MCH 33.5 MCHC 34.1 RDW 13.7 Plt Count 232 MPV 8.4 Absolute Neuts (auto) 4.5 Neutrophils % 56.7 Lymphocytes % 31.6 Monocytes % 9.0 Eosinophils % 1.9 Basophils % 0.8 Nucleated RBC % 0 PT with INR 13.40 H INR 1.13 H Sodium Potassium Chloride Carbon Dioxide Anion Gap BUN Creatinine Est GFR (CKD-EPI)AfAm Est GFR (CKD-EPI)NonAf Random Glucose Calcium Total Bilirubin AST ALT Alkaline Phosphatase Creatine Kinase Creatine Kinase Index CK-MB (CK-2) Troponin I B-Natriuretic Peptide Total Protein Albumin Lipase Urine Color Yellow Urine Appearance Clear Urine pH 5.0 Ur Specific [place] 1.007 L Urine Protein Negative Urine Glucose (UA) Negative Urine Ketones Negative Urine Blood Negative Urine Nitrite Negative Urine Bilirubin Negative Urine Urobilinogen 1.0 Ur Leukocyte Esterase 1+ H Urine WBC (Auto) 51 Urine RBC (Auto) 6 Urine Casts (Auto) 1 U Epithel Cells (Auto) 31 Urine Bacteria (Auto) 6 12/08/19 20:50 WBC RBC Hgb Hct MCV MCH MCHC RDW Plt Count MPV Absolute Neuts (auto) Neutrophils % Lymphocytes % Monocytes % Eosinophils % Basophils % Nucleated RBC % PT with INR INR Sodium 134 L Potassium 4.1 Chloride 102 Carbon Dioxide 22 Anion Gap 10 BUN 30.0 H Creatinine 2.5 H Est GFR (CKD-EPI)AfAm 30.53 Est GFR (CKD-EPI)NonAf 26.34 Random Glucose 91 Calcium 9.1 Total Bilirubin 0.9 AST 34 ALT 39 Alkaline Phosphatase 50 Creatine Kinase 770 H Creatine Kinase Index 0.7 CK-MB (CK-2) 6.0 H Troponin I < 0.02 B-Natriuretic Peptide 45.7 Total Protein 7.8 Albumin 3.7 Lipase 211 Urine Color Urine Appearance Urine pH Ur Specific [place] Urine Protein Urine Glucose (UA) Urine Ketones Urine Blood Urine Nitrite Urine Bilirubin Urine Urobilinogen Ur Leukocyte Esterase Urine WBC (Auto) Urine RBC (Auto) Urine Casts (Auto) U Epithel Cells (Auto) Urine Bacteria (Auto) ASSESSMENT/PLAN: In summary, Mr. Grijalva is a 64-year-old male with past medical history of polycystic kidney disease (baseline creatinine 1.1-1.6), hypertension, GERD and hyperlipidemia who presents with symptoms of lightheadedness, weakness and left lower abdominal pain for a week. Patient reports that he was seen by his PCP and he was started on Cipro 4 days ago for diverticulitis. #1 Acute on Chronic Renal Failure BUN 30/ creatinine 2.5 (baseline 1.1-1.6) hx polycystic kidney disease IVF NS @75cc/hr for hydration hold curtis and avoid NSAIDS and nephrotoxic meds check renal US Nephrology- Dr. Trey Jacinto consulted #2 Near Syncopy BP low normal hold BP meds check orthostatic vital signs monitor on telemetry #3 Hypertension SBP range 90-106 hold lisinopril given hypotension and DEBBI #4 Hyperlipidemia LFT's normal c/w statin therapy #5 Left Lower Quadrant Pain/Diverticulitis CT scan of abdomen with no acute diverticulitis, no leukocytosis, afebrile, lipase normal was treated with cipro for about 3 days, patient has concern of missing dosages of antibiotics,Cipro is not given here as per pharmacy and transitioned to po levoquin, will defer further management to GI and PCP GI-Dr. Luis Daniel Radford consulted #6 Elevated CK-MB/Creatine Kinase CK-MD 6 and creatine kinase 770 denies fall troponin normal, EKG with no signs of acute ischemia repeat troponin this am reports having chronic exertional chest pain consider Cardiology evaluation #7 Rule Out COVID follow up on COVID test maintain strict isolation precautions for droplet and contact DVT Prophylaxis SCD's FEN IVF NS @ 75cc/hr BMP daily clear liquid diet Family Medical History Family History: Unremarkable Visit type - Emergency Visit Emergency Visit: Yes ED Registration Date: 12/09/19 Care time: The patient presented to the Emergency Department on the above date and was hospitalized for further evaluation of their emergent condition. - New Patient This patient is new to me today: Yes Date on this admission: 12/09/19 - Critical Care Critical Care patient: No
[2019-12-09] MEDS: SODIUM CHLORIDE 1,000 ML IV SCH (06:12)
[2019-12-09 08:22] LABS: HEMATOCRIT 40.5 % (35.4-49); HEMOGLOBIN 13.8 GM/dL (11.7-16.9); MCH 33.1 pg (25.7-33.7); MCHC 34.2 g/dl (32.0-35.9); MEAN CELL VOLUME 96.9 fl (80-96); MEAN PLT VOLUME 8.3 fl (7.5-11.1); PLATELET COUNT 218 K/MM3 (134-434); RBC 4.18 M/mm3 (4.00-5.60); RDW 13.8 % (11.9-15.9); WHITE BLOOD COUNT 6.4 K/mm3 (4.0-10.0)
[2019-12-09 08:47] LABS: ALBUMIN 3.5 g/dl (3.4-5.0); ALK PHOS 46 U/L (45-117); ANION GAP 6 MMOL/L (8-16); BILIRUBIN,TOTAL 0.9 mg/dL (0.2-1); BLOOD UREA NITROGEN 25.9 mg/dL (7-18); CALCIUM 8.9 mg/dL (8.5-10.1); CHLORIDE 107 mmol/L (98-107); CO2 23 mmol/L (21-32); GLUCOSE,RANDOM 89 mg/dL (74-106); POTASSIUM 4.7 mmol/L (3.5-5.1); SGOT/AST 37 U/L (15-37); SGPT/ALT 38 U/L (13-61); SODIUM 136 mmol/L (136-145); TOT PROT 7.3 g/dl (6.4-8.2)
[2019-12-09] MEDS ORDERED: ASCORBIC ACID PO SCH (10:00)
--- NOTE | 2019-12-09 10:04 | EKG ---
Test Reason : Blood Pressure : / mmHG Vent. Rate : 060 BPM Atrial Rate : 060 BPM P-R Int : 188 ms QRS Dur : 104 ms QT Int : 416 ms P-R-T Axes : 064 -18 008 degrees QTc Int : 416 ms NORMAL SINUS RHYTHM NORMAL ECG WHEN COMPARED WITH ECG OF 29-MAY-2019 20:41, INCOMPLETE RIGHT BUNDLE BRANCH BLOCK IS NO LONGER PRESENT Confirmed by MD Lauro, Jose ([id number]) on 12/09/2019 10:04:31 AM Referred By: Confirmed By:Jose Restrepo MD
[2019-12-09] MEDS ORDERED: ASCORBIC ACID 500 MG TABLET (FP) ONE (10:08)
[2019-12-09] MEDS: ASCORBIC ACID 500 MG TABLET (FP) PO SCH (10:15)
[2019-12-09] MEDS: ALLOPURINOL 300 MG TABLET (FP) PO SCH (10:15)
--- NOTE | 2019-12-09 12:15 | PN ---
Progress Note (short form) - Note Progress Note: pt examined in ER No abdominal pain No dizziness or chest pain He denies diarrhea no BM x 3 days no nausea events noted Vital Signs - 24 hr 12/08/19 12/09/19 12/09/19 20:03 06:56 07:10 Temperature 98.2 F 98.2 F Pulse Rate 66 Pulse Rate [ 54 L Right Radial] Respiratory 20 20 Rate Blood Pressure 108/81 Blood Pressure 131/80 [Right Arm] O2 Sat by Pulse 98 98 98 Oximetry (%) 12/09/19 12/09/19 09:42 13:20 Temperature 97.9 F 98.3 F Pulse Rate Pulse Rate [ 67 54 L Right Radial] Respiratory Rate Blood Pressure Blood Pressure 120/78 103/82 [Right Arm] O2 Sat by Pulse 93 L 100 Oximetry (%) Current Medications Generic Name Dose Route Start Last Admin Trade Name Freq PRN Reason Stop Dose Admin Allopurinol 300 mg 12/09/19 10:00 12/09/19 10:15 Zyloprim - PO 300 mg DAILY ALCIDES Administration Ascorbic Acid 500 mg 12/09/19 10:00 12/09/19 10:15 Vitamin C - PO 500 mg DAILY ALCIDES Administration Atorvastatin Calcium 10 mg 12/09/19 22:00 Lipitor - PO HS ALCIDES Finasteride 5 mg 12/09/19 22:00 Proscar - PO HS ALCIDES Sodium Chloride 1,000 mls @ 75 mls/hr 12/09/19 05:30 12/09/19 06:12 Normal Saline - IV 75 mls/hr ASDIR ALCIDES Administration Levofloxacin 250 mg in 50 mls @ 50 mls/hr 12/10/19 10:00 Levaquin 250 Mg Premixed Ivpb - IVPB DAILY [facility] Protocol Laboratory Results - last 24 hr 12/08/19 12/08/19 12/08/19 20:50 20:50 20:50 WBC 7.9 RBC 4.25 Hgb 14.2 Hct 41.8 MCV 98.2 H MCH 33.5 MCHC 34.1 RDW 13.7 Plt Count 232 MPV 8.4 Absolute Neuts (auto) 4.5 Neutrophils % 56.7 Lymphocytes % 31.6 Monocytes % 9.0 Eosinophils % 1.9 Basophils % 0.8 Nucleated RBC % 0 PT with INR 13.40 H INR 1.13 H Sodium Potassium Chloride Carbon Dioxide Anion Gap BUN Creatinine Est GFR (CKD-EPI)AfAm Est GFR (CKD-EPI)NonAf Random Glucose Calcium Total Bilirubin AST ALT Alkaline Phosphatase Creatine Kinase Creatine Kinase Index CK-MB (CK-2) Troponin I B-Natriuretic Peptide Total Protein Albumin Lipase Urine Color Yellow Urine Appearance Clear Urine pH 5.0 Ur Specific [place] 1.007 L Urine Protein Negative Urine Glucose (UA) Negative Urine Ketones Negative Urine Blood Negative Urine Nitrite Negative Urine Bilirubin Negative Urine Urobilinogen 1.0 Ur Leukocyte Esterase 1+ H Urine WBC (Auto) 51 Urine RBC (Auto) 6 Urine Casts (Auto) 1 U Epithel Cells (Auto) 31 Urine Bacteria (Auto) 6 12/08/19 12/09/19 12/09/19 20:50 08:00 08:00 WBC 6.4 RBC 4.18 Hgb 13.8 Hct 40.5 MCV 96.9 H MCH 33.1 MCHC 34.2 RDW 13.8 Plt Count 218 MPV 8.3 Absolute Neuts (auto) Neutrophils % Lymphocytes % Monocytes % Eosinophils % Basophils % Nucleated RBC % PT with INR INR Sodium 134 L 136 Potassium 4.1 4.7 Chloride 102 107 Carbon Dioxide 22 23 Anion Gap 10 6 L BUN 30.0 H 25.9 H Creatinine 2.5 H 2.0 H Est GFR (CKD-EPI)AfAm 30.53 39.98 Est GFR (CKD-EPI)NonAf 26.34 34.49 Random Glucose 91 89 Calcium 9.1 8.9 Total Bilirubin 0.9 0.9 AST 34 37 ALT 39 38 Alkaline Phosphatase 50 46 Creatine Kinase 770 H Creatine Kinase Index 0.7 CK-MB (CK-2) 6.0 H Troponin I < 0.02 < 0.02 B-Natriuretic Peptide 45.7 Total Protein 7.8 7.3 Albumin 3.7 3.5 Lipase 211 Urine Color Urine Appearance Urine pH Ur Specific [place] Urine Protein Urine Glucose (UA) Urine Ketones Urine Blood Urine Nitrite Urine Bilirubin Urine Urobilinogen Ur Leukocyte Esterase Urine WBC (Auto) Urine RBC (Auto) Urine Casts (Auto) U Epithel Cells (Auto) Urine Bacteria (Auto) S1 S2 RRR Lungs clear Abd- soft, obese, NT NO edema PLAN Weakness Dehydration dizziness Near syncopy s/p diverticulitis -- CT abd noted-- d/w pt -- will change to IV levaquin , was on PO cipro at home -- iv fluids -- Renal eval -- cardiac enzymes negative x 2 -- BP better -- ok to transfer to med- surg-- check orthostatics Problem List - Problems (1) Acute renal failure Code(s): N17.9 - ACUTE KIDNEY FAILURE, UNSPECIFIED Qualifiers: Acute renal failure type: unspecified Qualified Code(s): N17.9 - Acute kidney failure, unspecified (2) Pre-syncope Code(s): R55 - SYNCOPE AND COLLAPSE (3) DEBBI (acute kidney injury) Code(s): N17.9 - ACUTE KIDNEY FAILURE, UNSPECIFIED (4) HTN (hypertension) Code(s): I10 - ESSENTIAL (PRIMARY) HYPERTENSION (5) Diverticulitis Code(s): K57.92 - DVTRCLI OF INTEST, PART UNSP, W/O PERF OR ABSCESS W/O BLEED
--- NOTE | 2019-12-09 16:24 | CON.NEP ---
Consult Consult Specialty:: Nephrology Referred by:: Dr. Jumana Jacinto Reason for Consultation:: DEBBI on CKD - History of Present Illness Chief Complaint: Weakness/Abdomnial pain History of Present Illness: This is a 64 year old male with history of CKD, PCKD, hypertension and hyperlipideima who presented with lightheadedness, weakness and lower abdominal pain and found to have Cr of 2.5. Seen and examined at the bedside. Awake and alert. C/o of mild abdominal discomfort and constipation. Reports he was on a liquid diet for 2 weeks. Denies any diarrhea or vomiting. Denies any sob, cp, fever, chills. Denies any NSAID use. Has not restarted his Aldactone due to dizziness. - History Source History Provided By: Patient Limitations to Obtaining History: No Limitations - Past Medical History Cardio/Vascular: Yes: HTN, Other (Bradycardia) Renal/: Yes: BPH Musculoskeletal: Yes: Chronic low back pain - Alcohol/Substance Use Hx Alcohol Use: Yes (QUIT IN 1998) History of Substance Use: reports: None - Smoking History Smoking history: Never smoked Have you smoked in the past 12 months: No Aproximately how many cigarettes per day: 1 - Social History ADL: Independent History of Recent Travel: No Home Medications - Allergies Allergies/Adverse Reactions: Allergies Allergy/AdvReac Type Severity Reaction Status Date / Time Iodine and Iodide Containing Allergy Verified 05/29/19 20:32 Produc Penicillins Allergy Verified 05/29/19 20:32 - Home Medications Home Medications: Ambulatory Orders Allopurinol 300 mg PO DAILY 11/11/17 Atorvastatin Ca [Lipitor] 10 mg PO HS 11/11/17 Finasteride [Proscar -] 5 mg PO HS 11/11/17 [place]-3 Fatty Acids/Fish Oil [Fish Oil 1,000 mg Capsule] 1,000 mg PO DAILY 11/11/17 Oxybutynin Chloride 5 mg PO HS 11/11/17 Ascorbic Acid [Vitamin C] 1 tab PO DAILY 02/09/19 Pyridoxine HCl (B-6) [Vitamin B6] 100 mg PO DAILY 02/09/19 Lisinopril [Prinivil] 20 mg PO BID 02/10/19 Family Medical History Other Family History: History of PCKD Review of Systems - Review of Systems Constitutional: reports: No Symptoms Eyes: reports: No Symptoms HENT: reports: No Symptoms Neck: reports: No Symptoms Cardiovascular: reports: No Symptoms Respiratory: reports: No Symptoms Gastrointestinal: reports: Abdominal Pain, Constipation. denies: Diarrhea, Vo miting Genitourinary: reports: No Symptoms Musculoskeletal: reports: No Symptoms Integumentary: reports: No Symptoms Neurological: reports: Dizziness, Weakness Nephrology Consult - Height Height: 5 ft 10 in - Weight Weight: 122.47 kg - BMI Body Mass Index (BMI): 38.7 - Lab Results CBC,BMP: CBC, BMP 12/09/19 08:00 12/09/19 08:00 Anion Gap: Anion Gap Anion Gap 6 MMOL/L (8-16) L 12/09/19 08:00 - Physical Examination Vital Signs: Vital Signs Temperature 98.1 F 12/09/19 14:55 Pulse Rate 53 L 12/09/19 15:39 Respiratory Rate 18 12/09/19 14:55 Blood Pressure 125/78 12/09/19 15:39 O2 Sat by Pulse Oximetry (%) 99 12/09/19 14:55 Constitutional: Yes: Well Nourished, No Distress, Calm Eyes: Yes: Conjunctiva Clear HENT: Yes: Atraumatic Neck: Yes: Supple Cardiovascular: Yes: Regular Rate and Rhythm Respiratory: Yes: Regular, CTA Bilaterally. No: Rales, Rhonchi Gastrointestinal: Yes: Soft. No: Tenderness Renal/: No: Bladder Distention, CVA Tenderness - Left, CVA Tenderness - Right Extremities: No: Cyanosis Edema: No Neurological: Yes: Alert, Oriented Assessment/Plan 64 year old male with history of CKD, PCKD, hypertension and hyperlipideima who presented with lightheadedness, weakness and lower abdominal pain and found to have Cr of 2.5. 1. CKD secondary to Polycystic kidney disease 2. Acute kidney injury from volume depletion 3. Abdominal pain 4. Diverticulosis/Diverticulitis 5. Hypertension 6. Hyperlipidemia Renal function improving with IV fluids Continue isotonic saline for now no acute indication for renal replacement therapy Hold MAURIZIO and diuretics for now Check urine studies Renal US showed multiple cysts but no obstructive process Continue antibiotics as per primary team GI follow up Thank you Chun Gibbs DO
--- NOTE | 2019-12-09 17:23 | CON.GI ---
Consult Consult Specialty:: Gastroenterology Referred by:: Dr Jumana Jacinto Reason for Consultation:: Abdominal pain - History of Present Illness Chief Complaint: Lower abdominal pain ansd weakness History of Present Illness: 64M reports lower abdominal pain for which he was started on a course of Cipro 2 weeks ago for presumed diverticulitis. He last had a colonoscopy with Dr Radford on 02/10/19 which revealed severe sigmoid diverticulosis. In 2016 he had tubular adenomas removed from his ascending and transverse colon. He had an EGD on 02/10/29 which revealed no abnormalities. His CT scan revealed bilateral kidney cysts the largest being 6.2cm in size. He is also found to have sigmoid diverticulosis but no diverticulitis on this study. He has chronic gas pain but denies constipation. The gas pain triggers panic attacks which prompted him to come to the ER. He has been on liquid diet for the past 2 weeks. His mother had polycystic kidney disease while his father required dialysis for diabetic nephropathy. Two of his four children have proteinuria but have not yet been formally worked up for polycystic kidney disease. - History Source History Provided By: Patient, Medical Record Limitations to Obtaining History: No Limitations - Past Medical History Cardio/Vascular: Yes: HTN, Other (Bradycardia) Gastrointestinal: Yes: Diverticulosis Renal/: Yes: Renal Inusuff (Polycystic kidney disease and IgA nephropathy), BPH Psych: Yes: Anxiety, Panic (prone to panic attacks) Musculoskeletal: Yes: Chronic low back pain Rheumatology: Yes: Gout - Past Surgical History Past Surgical History: Yes: Colonoscopy, Upper Endoscopy Additional Surgical History: Prostate laser surgery - Alcohol/Substance Use Hx Alcohol Use: Yes (QUIT IN 1998) History of Substance Use: reports: None - Smoking History Smoking history: Never smoked Have you smoked in the past 12 months: No Aproximately how many cigarettes per day: 1 If you are a former smoker, when did you quit?: 20 years ago (cigarettes) 1 year ago (cigars) - Social History Usual Living Arrangement: With Spouse ADL: Independent Occupation: maintenance Place of : [facility] History of Recent Travel: No Home Medications - Allergies Allergies/Adverse Reactions: Allergies Allergy/AdvReac Type Severity Reaction Status Date / Time Iodine and Iodide Containing Allergy Verified 05/29/19 20:32 Produc Penicillins Allergy Verified 05/29/19 20:32 - Home Medications Home Medications: Ambulatory Orders Allopurinol 300 mg PO DAILY 11/11/17 Atorvastatin Ca [Lipitor] 10 mg PO HS 11/11/17 Finasteride [Proscar -] 5 mg PO HS 11/11/17 [place]-3 Fatty Acids/Fish Oil [Fish Oil 1,000 mg Capsule] 1,000 mg PO DAILY 11/11/17 Oxybutynin Chloride 5 mg PO HS 11/11/17 Ascorbic Acid [Vitamin C] 1 tab PO DAILY 02/09/19 Pyridoxine HCl (B-6) [Vitamin B6] 100 mg PO DAILY 02/09/19 Lisinopril [Prinivil] 20 mg PO BID 02/10/19 Family Medical History Family Hx Diabetes: Father Family Hx Renal Disease: Mother, Father, Son (son has polys=cystic kidney disease) Physical Exam-GI Vital Signs: Vital Signs Temperature 97.9 F 12/09/19 16:02 Pulse Rate 53 L 12/09/19 16:02 Respiratory Rate 18 12/09/19 16:02 Blood Pressure 125/78 12/09/19 16:02 O2 Sat by Pulse Oximetry (%) 99 12/09/19 16:02 CBC,CMP WBC 6.4 K/mm3 (4.0-10.0) 12/09/19 08:00 RBC 4.18 M/mm3 (4.00-5.60) 12/09/19 08:00 Hgb 13.8 GM/dL (11.7-16.9) 12/09/19 08:00 Hct 40.5 % (35.4-49) 12/09/19 08:00 MCV 96.9 fl (80-96) H 12/09/19 08:00 MCH 33.1 pg (25.7-33.7) 12/09/19 08:00 MCHC 34.2 g/dl (32.0-35.9) 12/09/19 08:00 RDW 13.8 % (11.9-15.9) 12/09/19 08:00 Plt Count 218 K/MM3 (134-434) 12/09/19 08:00 MPV 8.3 fl (7.5-11.1) 12/09/19 08:00 Absolute Neuts (auto) 4.5 K/mm3 (1.5-8.0) 12/08/19 20:50 Neutrophils % 56.7 % (42.8-82.8) 12/08/19 20:50 Lymphocytes % 31.6 % (8-40) 12/08/19 20:50 Monocytes % 9.0 % (3.8-10.2) 12/08/19 20:50 Eosinophils % 1.9 % (0-4.5) 12/08/19 20:50 Basophils % 0.8 % (0-2.0) 12/08/19 20:50 Nucleated RBC % 0 % (0-0) 12/08/19 20:50 Sodium 136 mmol/L (136-145) 12/09/19 08:00 Potassium 4.7 mmol/L (3.5-5.1) 12/09/19 08:00 Chloride 107 mmol/L (98-107) 12/09/19 08:00 Carbon Dioxide 23 mmol/L (21-32) 12/09/19 08:00 Anion Gap 6 MMOL/L (8-16) L 12/09/19 08:00 BUN 25.9 mg/dL (7-18) H 12/09/19 08:00 Creatinine 2.0 mg/dL (0.55-1.3) H 12/09/19 08:00 Est GFR (CKD-EPI)AfAm 39.98 12/09/19 08:00 Est GFR (CKD-EPI)NonAf 34.49 12/09/19 08:00 Random Glucose 89 mg/dL (74-106) 12/09/19 08:00 Calcium 8.9 mg/dL (8.5-10.1) 12/09/19 08:00 Total Bilirubin 0.9 mg/dL (0.2-1) 12/09/19 08:00 AST 37 U/L (15-37) 12/09/19 08:00 ALT 38 U/L (13-61) 12/09/19 08:00 Alkaline Phosphatase 46 U/L (45-117) 12/09/19 08:00 Creatine Kinase 770 U/L (26-308) H 12/08/19 20:50 Creatine Kinase Index 0.7 % (0.0-5.0) 12/08/19 20:50 CK-MB (CK-2) 6.0 ng/mL (0.5-3.6) H 12/08/19 20:50 Troponin I < 0.02 ng/ml (0.00-0.05) 12/09/19 08:00 B-Natriuretic Peptide 45.7 pg/ml (5-125) 12/08/19 20:50 Total Protein 7.3 g/dl (6.4-8.2) 12/09/19 08:00 Albumin 3.5 g/dl (3.4-5.0) 12/09/19 08:00 Lipase 211 U/L (73-393) 12/08/19 20:50 CBC,CMP WBC 6.4 K/mm3 (4.0-10.0) 12/09/19 08:00 RBC 4.18 M/mm3 (4.00-5.60) 12/09/19 08:00 Hgb 13.8 GM/dL (11.7-16.9) 12/09/19 08:00 Hct 40.5 % (35.4-49) 12/09/19 08:00 MCV 96.9 fl (80-96) H 12/09/19 08:00 MCH 33.1 pg (25.7-33.7) 12/09/19 08:00 MCHC 34.2 g/dl (32.0-35.9) 12/09/19 08:00 RDW 13.8 % (11.9-15.9) 12/09/19 08:00 Plt Count 218 K/MM3 (134-434) 12/09/19 08:00 MPV 8.3 fl (7.5-11.1) 12/09/19 08:00 Absolute Neuts (auto) 4.5 K/mm3 (1.5-8.0) 12/08/19 20:50 Neutrophils % 56.7 % (42.8-82.8) 12/08/19 20:50 Lymphocytes % 31.6 % (8-40) 12/08/19 20:50 Monocytes % 9.0 % (3.8-10.2) 12/08/19 20:50 Eosinophils % 1.9 % (0-4.5) 12/08/19 20:50 Basophils % 0.8 % (0-2.0) 12/08/19 20:50 Nucleated RBC % 0 % (0-0) 12/08/19 20:50 Sodium 136 mmol/L (136-145) 12/09/19 08:00 Potassium 4.7 mmol/L (3.5-5.1) 12/09/19 08:00 Chloride 107 mmol/L (98-107) 12/09/19 08:00 Carbon Dioxide 23 mmol/L (21-32) 12/09/19 08:00 Anion Gap 6 MMOL/L (8-16) L 12/09/19 08:00 BUN 25.9 mg/dL (7-18) H 12/09/19 08:00 Creatinine 2.0 mg/dL (0.55-1.3) H 12/09/19 08:00 Est GFR (CKD-EPI)AfAm 39.98 12/09/19 08:00 Est GFR (CKD-EPI)NonAf 34.49 12/09/19 08:00 Random Glucose 89 mg/dL (74-106) 12/09/19 08:00 Calcium 8.9 mg/dL (8.5-10.1) 12/09/19 08:00 Total Bilirubin 0.9 mg/dL (0.2-1) 12/09/19 08:00 AST 37 U/L (15-37) 12/09/19 08:00 ALT 38 U/L (13-61) 12/09/19 08:00 Alkaline Phosphatase 46 U/L (45-117) 12/09/19 08:00 Creatine Kinase 770 U/L (26-308) H 12/08/19 20:50 Creatine Kinase Index 0.7 % (0.0-5.0) 12/08/19 20:50 CK-MB (CK-2) 6.0 ng/mL (0.5-3.6) H 12/08/19 20:50 Troponin I < 0.02 ng/ml (0.00-0.05) 12/09/19 08:00 B-Natriuretic Peptide 45.7 pg/ml (5-125) 12/08/19 20:50 Total Protein 7.3 g/dl (6.4-8.2) 12/09/19 08:00 Albumin 3.5 g/dl (3.4-5.0) 12/09/19 08:00 Lipase 211 U/L (73-393) 12/08/19 20:50 Current Medications Generic Name Dose Route Start Last Admin Trade Name Ish PRN Reason Stop Dose Admin Allopurinol 300 mg 12/09/19 10:00 12/09/19 10:15 Zyloprim - PO 300 mg DAILY ALCIDES Administration Ascorbic Acid 500 mg 12/09/19 10:00 12/09/19 10:15 Vitamin C - PO 500 mg DAILY ALCIDES Administration Atorvastatin Calcium 10 mg 12/09/19 22:00 Lipitor - PO HS ALCIDES Finasteride 5 mg 12/09/19 22:00 Proscar - PO HS ALCIDES Sodium Chloride 1,000 mls @ 75 mls/hr 12/09/19 05:30 12/09/19 06:12 Normal Saline - IV 75 mls/hr ASDIR ALCIDES Administration Levofloxacin 250 mg in 50 mls @ 50 mls/hr 12/10/19 10:00 Levaquin 250 Mg Premixed Ivpb - IVPB DAILY ALCIDES Protocol Constitutional: Yes: Anxious Eyes: Yes: Conjunctiva Clear HENT: Yes: Normocephalic Neck: Yes: Supple Cardiovascular: Yes: Regular Rate and Rhythm Respiratory: Yes: CTA Bilaterally Gastrointestinal Inspection: Yes: Other (Obese) ...Auscultate: Yes: Normoactive Bowel Sounds ...Palpate: Yes: Soft, Other (nontender) ...Rectal Exam: Yes: Deferred (had 01/31 colonoscopy ( see report in chart)) Neurological: Yes: Alert, Oriented Labs: CBC, BMP 12/09/19 08:00 12/09/19 08:00 INR, PTT INR 1.13 (0.83-1.09) H 12/08/19 20:50 Imaging - Results Cat Scan: Report Reviewed ( Final Report CT ABDOMEN & PELVIS CT W/O CONTR Show Printer-Friendly Version Patient Name: Huy Grijalva : 1955 ID: [id number] Study Date: 09-Dec-2019 01:56 Lety Jaimes Name: HUY GRIJALVA DEPARTMENT OF RADIOLOGY Phys: Viridiana Rosales NP : 1955 Age: 64 Sex: M [facility] Acct: [id number] Loc: [address] Exam Date: 12/09/19 Status: [place] [address] Unit Number: [id number] EXAM#: TYPE/EXAM: RESULT: [id number] CT/ABDOMEN PELVIS CT W/O CONTR HISTORY PROVIDED: Left lower quadrant pain TECHNIQUE: Sequential axial images were obtained from the domes of the diaphragm through the symphysis pubis following the administration of oral contrast material. The lung bases are clear. The liver is normal in size and texture with no intrahepatic masses present. There is a calcification within the dome of the liver suspicious for prior granulomatous disease. The spleen, pancreas, adrenal glands and kidneys demonstrate no significant abnormalities. There are multiple bilateral renal cysts. The largest right renal cyst measures 4.7 cm and the largest left renal cyst measures 6.2 cm. The gallbladder is clear. There is no evidence of intra-abdominal or retroperitoneal lymphadenopathy or fluid collections. There is no evidence of pneumoperitoneum, bowel obstruction or intra-abdominal abscess. There is no CT evidence of acute appendicitis. There is extens eula diverticulosis of the sigmoid colon with no definite evidence of acute diverticulitis. Examination of the pelvis demonstrates no evidence of pelvic masses, fluid collections or lymphadenopathy. The gland is not enlarged. There is no evidence of acute bony pathology. IMPRESSION: 1. Extensive sigmoid diverticulosis without evidence of acute diverticulitis. 2. No acute pathology within the abdomen or pelvis. Please see above discussion. Reported By: Chuy Stevens MD 12/09/19826 Technologist: Benton Thorpe Transcribed Date/Time: 12/09/19826 Story Writer: Chuy Stevens Printed Date/Time: By: Signed by: Chuy Stevens Signed on: 09-Dec-2019 08:29) Problem List - Problems (1) Abdominal pain Code(s): R10.9 - UNSPECIFIED ABDOMINAL PAIN Qualifiers: Abdominal location: left lower quadrant Qualified Code(s): R10.32 - Left lower quadrant pain (2) Diverticulitis Code(s): K57.92 - DVTRCLI OF INTEST, PART UNSP, W/O PERF OR ABSCESS W/O BLEED (3) Polycystic kidney disease Code(s): Q61.3 - POLYCYSTIC KIDNEY, UNSPECIFIED (4) IgA nephropathy Code(s): N02.8 - RECURRENT AND PERSISTENT HEMATURIA W OTH MORPHOLOGIC CHANGES (5) HTN (hypertension) Code(s): I10 - ESSENTIAL (PRIMARY) HYPERTENSION Assessment/Plan Impression: - Suspect resolved diverticulitis which has left some component of ileus and gas pain - Personal h/o colon adenomas Plan: - Complete course of antibiotics as already ordered - Miralax daily - Already advanced to solids
[2019-12-09] MEDS ORDERED: FINASTERIDE 5 MG TABLET (FP) PO SCH (22:00)
[2019-12-09] MEDS ORDERED: ATORVASTATIN CA 10 MG TABLET (FP) PO SCH (22:00)
[2019-12-09 22:40] LABS: URINE UREA NITROGEN 437 mg/dL (350-1000)
[2019-12-10] MEDS: SODIUM CHLORIDE 1,000 ML IV SCH (06:00)
[2019-12-10 06:58] LABS: BASO % 0.7 % (0-2.0); EOS % 2.3 % (0-4.5); HEMATOCRIT 38.2 % (35.4-49); HEMOGLOBIN 12.9 GM/dL (11.7-16.9); LYMPH % 26.7 % (8-40); MCH 33.2 pg (25.7-33.7); MCHC 33.8 g/dl (32.0-35.9); MEAN CELL VOLUME 98.2 fl (80-96); MEAN PLT VOLUME 8.5 fl (7.5-11.1); MONO % 7.4 % (3.8-10.2); NEUT % 62.9 % (42.8-82.8); PLATELET COUNT 206 K/MM3 (134-434); RBC 3.89 M/mm3 (4.00-5.60); RDW 13.9 % (11.9-15.9)
[2019-12-10 08:04] LABS: ALBUMIN 3.1 g/dl (3.4-5.0); BILIRUBIN,TOTAL 0.5 mg/dL (0.2-1); BLOOD UREA NITROGEN 22.4 mg/dL (7-18); CALCIUM 8.7 mg/dL (8.5-10.1); CREATININE 1.6 mg/dL (0.55-1.3); PHOSPHOROUS 2.7 mg/dL (2.5-4.9); POTASSIUM 4.6 mmol/L (3.5-5.1); TOT PROT 6.6 g/dl (6.4-8.2)
[2019-12-10] MEDS: ALLOPURINOL 300 MG TABLET (FP) PO SCH (09:54)
[2019-12-10] MEDS: ASCORBIC ACID 500 MG TABLET (FP) PO SCH (09:55)
[2019-12-10] MEDS ORDERED: POLYETHYLENE GLYCOL 3350 119 GM BTL PO SCH (10:00)
[2019-12-10 10:51] VITALS: BP 118/58; PULSE 52; TEMP 98.4
--- NOTE | 2019-12-10 12:30 | PN ---
Progress Note, Physician Chief Complaint: Seen and examined at the bedside awake and alert offers no acute complaints has yet to have a BM denies any sob, cp, fever, chills, N/V/D making urine Tolerating oral meals but appetite is poor. - Current Medication List Current Medications: Active Medications Allopurinol (Zyloprim -) 300 mg PO DAILY [facility] Last Admin: 12/10/19 09:54 Dose: 300 mg Documented by: Ascorbic Acid (Vitamin C -) 500 mg PO DAILY [facility] Last Admin: 12/10/19 09:55 Dose: 500 mg Documented by: Atorvastatin Calcium (Lipitor -) 10 mg PO HS [facility] Last Admin: 12/09/19 21:12 Dose: 10 mg Documented by: Finasteride (Proscar -) 5 mg PO HS [facility] Last Admin: 12/09/19 21:12 Dose: 5 mg Documented by: Sodium Chloride (Normal Saline -) 1,000 mls @ 75 mls/hr IV ASDIR [facility] Last Admin: 12/10/19 06:00 Dose: 75 mls/hr Documented by: Levofloxacin (Levaquin 250 Mg Premixed Ivpb -) 250 mg in 50 mls @ 50 mls/hr IVPB DAILY [facility]; Protocol Last Admin: 12/10/19 09:54 Dose: 50 mls/hr Documented by: Polyethylene Glycol (Miralax (For Daily Use) -) 17 gm PO DAILY [facility] Last Admin: 12/10/19 09:56 Dose: 17 gm Documented by: - Objective Vital Signs: Vital Signs Temperature 98.4 F 12/10/19 10:00 Pulse Rate 52 L 12/10/19 10:00 Respiratory Rate 22 H 12/10/19 10:00 Blood Pressure 118/58 L 12/10/19 10:00 O2 Sat by Pulse Oximetry (%) 98 12/10/19 10:00 Constitutional: Yes: No Distress, Calm HENT: Yes: Atraumatic Neck: Yes: Supple Respiratory: Yes: Regular, CTA Bilaterally Gastrointestinal: Yes: Soft, Abdomen, Obese. No: Tenderness Extremities: No: Cyanosis, Erythema Edema: No Edema: LLE: Trace, RLE: Trace Neurological: Yes: Alert, Oriented Labs: CBC, BMP 12/10/19 06:00 12/10/19 06:00 INR, PTT INR 1.13 (0.83-1.09) H 12/08/19 20:50 Assessment/Plan 64 year old male with history of CKD, PCKD, hypertension and hyperlipideima who presented with lightheadedness, weakness and lower abdominal pain and found to have Cr of 2.5. 1. CKD secondary to Polycystic kidney disease 2. Acute kidney injury from volume depletion 3. Abdominal pain 4. Diverticulosis/Diverticulitis 5. Hypertension 6. Hyperlipidemia Renal function now improved to near baseline. Can discontinue IVF and trend renal function on oral intake alone Would continue to hold ACEi for now as BP is well within normal limits Can resume loop diuretic on discharge Renal US showed multiple cysts but no obstructive process Continue antibiotics as per primary team GI follow up, continue recommended antibiotics for diverticulitis Thank you Chun Gibbs DO
--- NOTE | 2019-12-10 13:30 | DS ---
Physical Examination Vital Signs: Vital Signs Temperature 98.4 F 12/10/19 10:00 Pulse Rate 52 L 12/10/19 10:00 Respiratory Rate 22 H 12/10/19 10:00 Blood Pressure 118/58 L 12/10/19 10:00 O2 Sat by Pulse Oximetry (%) 98 12/10/19 10:00 Constitutional: Yes: No Distress, Calm Cardiovascular: Yes: Regular Rate and Rhythm Respiratory: Yes: CTA Bilaterally Gastrointestinal: Yes: Normal Bowel Sounds, Soft, Abdomen, Obese. No: Tenderness Edema: No Labs: CBC, BMP 12/10/19 06:00 12/10/19 06:00 Discharge Summary Problems reviewed: Yes Reason For Visit: ACUTE KIDNEY INJURY, PRE-SYNCOPE Current Active Problems Abdominal pain (Acute) Acute renal failure (Acute) Diverticulitis (Acute) IgA nephropathy (Acute) Lightheaded (Acute) Polycystic kidney disease (Acute) Pre-syncope (Acute) Hospital Course: CHIEF COMPLAINT:lightheadedness and left lower quadrant abdominal pain PCP: Dr. Jumana Mcgraw [employer] Reconditioner: Dr. Luis Daniel Radford Box Puller: Dr. Butts Underwriting Consultant: Dr. Trey Jacinto HISTORY OF PRESENT ILLNESS: 64-year-old male with past medical history of polycystic kidney disease (baseline creatinine 1.1-1.6), hypertension and hyperlipidemia who presents with symptoms of lightheadedness, weakness and left lower abdominal pain ongoing for a week. Patient reports that he was seen by his PCP and he was started on Cipro on Saturday (4 days ago) for diverticulitis. He denied fever/chills, nausea, vomiting, or diarrhea. Patient reports that since he started having pain he has been on a liquid diet and decreased oral intake and overall abdominal pain has improved however now noted to have low b/p with SBP in the low 90's and near syncopy. He reports he has intermittent chest pain which is chronic for him and sees Dr. Butts. He reports he had a stress test in the past. He also reports a history of GERD. ER course notable for: 1. acute on chronic renal failure- BUN 30/creatinine 2.5 (baseline range between 1.1-1.6) 2. CK-MB 6, creatinine kinase 770, troponin normal 3. UA- 1+ leukoesterase 4. CTAP 12/09/2019 Calcified granuloma within the right dome of the liver No gallstones No evidence of nephrolithiasis, ureterolithiasis, or obstructive uropathy Bilateral cortical renal cysts Colonic diverticulosis without evidence of acute diverticulitis Normal appendix No evidence of intestinal obstruction, perforation, colitis, pancreatitis, free fluid, or an intra-abdominal or pelvic abscess Degenerative changes of the spine HOSPITAL COURSE Seen by renal and GI On Levaquin Abdominal pain resolved , pt tolerating a regular diet Advised low salt diet will dc BP meds , Finasteride as pt has orthostatic hypotension cardiac enzymes negative x 2 Stable for dc home Advised to check BP BID x 5 days and follow up in office Condition: Good - Instructions Diet, Activity, Other Instructions: complete course of antibiotics at home Check BP twice a day x 5 days, log this and follow up in office Referrals: Jumana Jacinto MD [Staff Physician] - Disposition: HOME - Home Medications Comprehensive Discharge Medication List: Ambulatory Orders Allopurinol 300 mg PO DAILY 11/11/17 Atorvastatin Ca [Lipitor] 10 mg PO HS 11/11/17 [place]-3 Fatty Acids/Fish Oil [Fish Oil 1,000 mg Capsule] 1,000 mg PO DAILY 11/11/17 Oxybutynin Chloride 5 mg PO HS 11/11/17 Ascorbic Acid [Vitamin C] 1 tab PO DAILY 02/09/19 Pyridoxine HCl (B-6) [Vitamin B6 -] 100 mg PO DAILY 02/09/19 Polyethylene Glycol 3350 [Miralax 119 gm Btl -] 17 gm PO DAILY #1 bottle 12/10/19
== END 2019-12-10 15:17 | disposition home or self-care (01) ==
LOC: JER 19:29 → JERBED 12-09 03:38 → J4W 12-09 15:40
PROVIDERS: ADMIT Internal Medicine; ATTEND Internal Medicine
PROC: 3E03329 Introduction of Other Anti-infective into Peripheral Vein, Percutaneous Approach (ICD-10-PCS; principal; 2019-12-09)
PROC: 3E0337Z Introduction of Electrolytic and Water Balance Substance into Peripheral Vein, Percutaneous Approach (ICD-10-PCS; 2019-12-09)
DX: I13.0 Hypertensive heart and chronic kidney disease with heart failure and stage 1 through stage 4 chronic kidney disease, or unspecified chronic kidney disease (principal); K57.92 Diverticulitis of intestine, part unspecified, without perforation or abscess without bleeding; M54.5 Low back pain; R10.32 Left lower quadrant pain; N17.9 Acute kidney failure, unspecified; R55 Syncope and collapse; Z91.09 Other allergy status, other than to drugs and biological substances; K21.9 Gastro-esophageal reflux disease without esophagitis; Q61.3 Polycystic kidney, unspecified; M10.9 Gout, unspecified; N18.9 Chronic kidney disease, unspecified; R00.1 Bradycardia, unspecified; Z88.0 Allergy status to penicillin; G89.29 Other chronic pain; F41.9 Anxiety disorder, unspecified; Z87.891 Personal history of nicotine dependence; N40.0 Benign prostatic hyperplasia without lower urinary tract symptoms; E66.01 Morbid (severe) obesity due to excess calories; Z68.38 Body mass index [BMI] 38.0-38.9, adult
CPT/HCPCS: 36415; 71046-TC-FY; 74176-TC; 76775-TC; 80053; 81003; 82550; 82553; 82565; 83690; 83880; 84100; 84156; 84300; 84484; 84540; 85025; 85027; 85610; 87205; 93005; 93010; 99285-25; G0378; U0003

== ENCOUNTER 2020-05-05 00:01 | Observation (INO) | payer BC ==
[2020-05-05] MEDS ORDERED: ACETAMINOPHEN 1000 MG/100 ML VIAL (NON FORMULARY) IVPB ONE (01:26)
[2020-05-05 01:34] LABS: BASO % 0.7 % (0-2.0); EOS % 1.8 % (0-4.5); HEMATOCRIT 45.3 % (35.4-49); HEMOGLOBIN 15.5 GM/dL (11.7-16.9); LYMPH % 27.5 % (8-40); MCH 33.7 pg (25.7-33.7); MCHC 34.2 g/dl (32.0-35.9); MEAN CELL VOLUME 98.6 fl (80-96); MEAN PLT VOLUME 8.3 fl (7.5-11.1); MONO % 5.9 % (3.8-10.2); NEUT % 64.1 % (42.8-82.8); PLATELET COUNT 250 K/MM3 (134-434); RBC 4.59 M/mm3 (4.00-5.60); RDW 14.1 % (11.9-15.9); WHITE BLOOD COUNT 8.4 K/mm3 (4.0-10.0)
[2020-05-05] MEDS ORDERED: FAMOTIDINE 20 MG/50 ML IVPB 20 MG/50 ML MG IVPB ONE (01:38)
[2020-05-05] MEDS ORDERED: SUCRALFATE 1 GM/10 ML UNIT DOSE CUPS PO ONE (01:39)
[2020-05-05 01:46] LABS: INR 1.04 (0.83-1.09); PROTHROMBIN TIME (PATIENT) 12.8 SEC (9.7-13.0)
[2020-05-05 01:48] LABS: ACTIVATED PTT 30.7 SECONDS (25.2-36.5)
[2020-05-05 01:52] LABS: CHLORIDE 106 mmol/L (98-107); POTASSIUM 4.2 mmol/L (3.5-5.1); SODIUM 138 mmol/L (136-145)
[2020-05-05 01:55] LABS: ALBUMIN 3.9 g/dl (3.4-5.0); ANION GAP 5 MMOL/L (8-16); BLOOD UREA NITROGEN 22.4 mg/dL (7-18); CO2 26 mmol/L (21-32); GLUCOSE,RANDOM 95 mg/dL (74-106)
[2020-05-05 01:58] LABS: CREATININE 1.5 mg/dL (0.55-1.3); SGOT/AST 22 U/L (15-37); SGPT/ALT 34 U/L (13-61)
[2020-05-05 02:00] LABS: TOT PROT 8.2 g/dl (6.4-8.2)
[2020-05-05 02:01] LABS: ALK PHOS 51 U/L (45-117)
[2020-05-05] MEDS ORDERED: ACETAMINOPHEN INJECTION 100 ML IVPB ONE (02:15)
[2020-05-05 02:22] LABS: BILIRUBIN,TOTAL 0.8 mg/dL (0.2-1)
[2020-05-05 03:52] LABS: URINE APPEARANCE CLEAR; URINE BILIRUBIN NEGATIVE (NEGATIVE); URINE COLOR YELLOW; URINE GLUCOSE (UA) NEGATIVE (NEGATIVE); URINE KETONE NEGATIVE (NEGATIVE)
[2020-05-05 03:53] LABS: EPI CELLS 3.5 /uL (0-25.1); URINE LEUK ESTERASE NEGATIVE (NEGATIVE); URINE NITRITE NEGATIVE (NEGATIVE); URINE PROTEIN 100 (NEGATIVE); URINE RBC 27.6 /uL (0-23.9); URINE WBC 6.2 /uL (0-25.8)
[2020-05-05 05:22] LABS: LIPASE 122 U/L (73-393)
[2020-05-05] MEDS ORDERED: amLODIPine BESYLATE 5 MG TABLET (FP) ONE (11:28)
[2020-05-05] MEDS ORDERED: LISINOPRIL 5 MG TABLET ONE (11:29)
[2020-05-05] MEDS ORDERED: amLODIPine BESYLATE 5 MG TABLET (FP) PO ONE (11:41)
[2020-05-05] MEDS ORDERED: LISINOPRIL 10 MG TABLET PO ONE (11:41)
[2020-05-05] MEDS ORDERED: PT OWN MED DRAWER 7, Y5N ONE (21:43)
[2020-05-05] MEDS ORDERED: OXYBUTYNIN CHLORIDE 5 MG TABLET PO SCH (22:00)
[2020-05-05] MEDS ORDERED: ATORVASTATIN CA 10 MG TABLET (FP) PO SCH (22:00)
[2020-05-05] MEDS: HEPARIN NA (PORCINE) 5,000 UNITS/ML 1ML VIAL SQ SCH (22:09)
[2020-05-06 02:20] VITALS: TEMP 98.4
[2020-05-06 07:24] LABS: BASO % 0.7 % (0-2.0); EOS % 2.1 % (0-4.5); HEMATOCRIT 40.1 % (35.4-49); HEMOGLOBIN 14.1 GM/dL (11.7-16.9); LYMPH % 33.1 % (8-40); MCH 34.2 pg (25.7-33.7); MEAN CELL VOLUME 97.6 fl (80-96); MEAN PLT VOLUME 8.2 fl (7.5-11.1); MONO % 6.7 % (3.8-10.2); NEUT % 57.4 % (42.8-82.8); PLATELET COUNT 241 K/MM3 (134-434); RBC 4.11 M/mm3 (4.00-5.60); WHITE BLOOD COUNT 7.3 K/mm3 (4.0-10.0)
[2020-05-06 07:43] LABS: POTASSIUM 4.9 mmol/L (3.5-5.1)
[2020-05-06 07:50] LABS: CALCIUM 9.1 mg/dL (8.5-10.1)
[2020-05-06 07:51] LABS: BLOOD UREA NITROGEN 22.8 mg/dL (7-18); MAGNESIUM 2.1 mg/dL (1.8-2.4)
[2020-05-06 07:52] LABS: ALBUMIN 3.3 g/dl (3.4-5.0)
[2020-05-06 07:54] LABS: CREATININE 1.4 mg/dL (0.55-1.3)
[2020-05-06 07:56] LABS: BILIRUBIN,TOTAL 0.8 mg/dL (0.2-1)
[2020-05-06] MEDS ORDERED: REGADENOSON 0.4 MG/5 ML PRE-FILLED SYRINGE IVPUSH ONE ×2 (09:30→09:46)
[2020-05-06] MEDS ORDERED: amLODIPine BESYLATE 5 MG TABLET (FP) PO SCH (10:00)
[2020-05-06] MEDS ORDERED: ALLOPURINOL 300 MG TABLET (FP) PO SCH (10:00)
[2020-05-06] MEDS ORDERED: CHOLECALCIFEROL (VIT D3) 1,000 UNIT (25 MCG) TABLET PO SCH (10:00)
[2020-05-06] MEDS ORDERED: LISINOPRIL 10 MG TABLET PO SCH (10:00)
[2020-05-06 10:30] VITALS: BP 144/94; PULSE 60
[2020-05-06] MEDS: HEPARIN NA (PORCINE) 5,000 UNITS/ML 1ML VIAL SQ SCH (12:25)
== END 2020-05-06 15:25 | disposition home or self-care (01) ==
LOC: JER 00:01 → JERBED 11:29 → INTOOBSV 11:30 → OBSVTOIN 11:30 → J4W 18:46
PROVIDERS: ADMIT Internal Medicine; ATTEND Internal Medicine
PROC: 3E023GC Introduction of Other Therapeutic Substance into Muscle, Percutaneous Approach (ICD-10-PCS; principal; 2020-05-05)
PROC: 3E033NZ Introduction of Analgesics, Hypnotics, Sedatives into Peripheral Vein, Percutaneous Approach (ICD-10-PCS; 2020-05-05)
PROC: 3E033GC Introduction of Other Therapeutic Substance into Peripheral Vein, Percutaneous Approach (ICD-10-PCS; 2020-05-05)
DX: I12.9 Hypertensive chronic kidney disease with stage 1 through stage 4 chronic kidney disease, or unspecified chronic kidney disease (principal); R00.1 Bradycardia, unspecified; M10.9 Gout, unspecified; R07.89 Other chest pain; Q61.3 Polycystic kidney, unspecified; N18.9 Chronic kidney disease, unspecified; G89.29 Other chronic pain; M54.5 Low back pain; N40.0 Benign prostatic hyperplasia without lower urinary tract symptoms; E66.9 Obesity, unspecified; F41.0 Panic disorder [episodic paroxysmal anxiety]; K57.92 Diverticulitis of intestine, part unspecified, without perforation or abscess without bleeding; I45.10 Unspecified right bundle-branch block; Z72.0 Tobacco use; Z88.0 Allergy status to penicillin; Z88.8 Allergy status to other drugs, medicaments and biological substances; E78.00 Pure hypercholesterolemia, unspecified
CPT/HCPCS: 36415; 71045-TC-FY; 78452-TC; 80053; 80061; 81003; 82550; 82553; 83036; 83690; 83721; 83735; 84443; 84484; 85025; 85610; 85730; 87086; 93005; 93010; 93017; 93306-TC; 99285-25; A9502; C9803; G0378; J0131; J1644; J2785; U0003

== ENCOUNTER 2020-05-26 12:15 | Emergency (ER) | payer BC ==
[2020-05-26 12:58] VITALS: BP 161/94; PULSE 68; TEMP 100.4; BMI 40.1
== END 2020-05-26 15:51 | disposition home or self-care (01) ==
LOC: JER 12:15
DX: U07.1 COVID-19 (principal)
CPT/HCPCS: 99283-25; C9803; U0003

== ENCOUNTER 2020-05-27 11:49 | Emergency (ER) | payer BC ==
[2020-05-27 12:19] VITALS: BMI 40.1
[2020-05-27] MEDS ORDERED: BAMLANIVIMAB 700 MG in SODIUM CHLORIDE 250 ML IVPB ONE (12:22)
[2020-05-27 14:02] LABS: HEMATOCRIT 40.7 % (35.4-49); HEMOGLOBIN 14.1 GM/dL (11.7-16.9); MCHC 34.8 g/dl (32.0-35.9); MEAN PLT VOLUME 8.4 fl (7.5-11.1); PLATELET COUNT 172 K/MM3 (134-434); RBC 4.15 M/mm3 (4.00-5.60); RDW 14.1 % (11.9-15.9); WHITE BLOOD COUNT 4.4 K/mm3 (4.0-10.0)
[2020-05-27 14:34] LABS: POTASSIUM 4.8 mmol/L (3.5-5.1)
[2020-05-27 14:36] LABS: CALCIUM 8.4 mg/dL (8.5-10.1)
[2020-05-27 14:37] LABS: BLOOD UREA NITROGEN 27.7 mg/dL (7-18)
[2020-05-27 14:40] LABS: CREATININE 1.7 mg/dL (0.55-1.3)
[2020-05-27] MEDS ORDERED: ACETAMINOPHEN 500 MG TABLET (FP) PO ONE (16:17)
[2020-05-27 17:51] VITALS: BP 123/79; PULSE 65; TEMP 99.8
== END 2020-05-27 18:04 | disposition home or self-care (01) ==
LOC: JER 11:49 → JCOVINFU 11:49
PROC: 3E033GC Introduction of Other Therapeutic Substance into Peripheral Vein, Percutaneous Approach (ICD-10-PCS; principal; 2020-05-27)
DX: U07.1 COVID-19 (principal)
CPT/HCPCS: 36415; 80048; 85027; 99284-25; M0239; Q0239

== ENCOUNTER 2021-03-18 09:33 | Emergency (ER) | payer BC ==
[2021-03-18 10:06] VITALS: BMI 40.1
[2021-03-18 11:54] LABS: EPI CELLS 2 /uL (0-25.1); HYALINE CASTS 1 /uL (0-3.1); URINE APPEARANCE CLEAR; URINE BACTERIA 169 /uL (0-1359); URINE BILIRUBIN NEGATIVE (NEGATIVE); URINE COLOR YELLOW; URINE GLUCOSE (UA) NEGATIVE (NEGATIVE); URINE KETONE NEGATIVE (NEGATIVE); URINE LEUK ESTERASE 2+ (NEGATIVE); URINE NITRITE NEGATIVE (NEGATIVE); URINE PROTEIN 1+ (NEGATIVE); URINE RBC 43 /uL (0-23.9); URINE UROBILINOGEN 0.2 mg/dL (0.2-1.0); URINE WBC 280 /uL (0-25.8)
[2021-03-18 12:42] LABS: BASO % 0.5 % (0-2.0); HEMATOCRIT 40.4 % (35.4-49); LYMPH % 12.3 % (8-40); MCH 34.4 pg (25.7-33.7); MCHC 34.7 g/dl (32.0-35.9); MEAN CELL VOLUME 99.2 fl (80-96); MEAN PLT VOLUME 8.1 fl (7.5-11.1); MONO % 5.6 % (3.8-10.2); NEUT % 80.6 % (42.8-82.8); PLATELET COUNT 210 10^3/uL (134-434); RBC 4.07 M/mm3 (4.00-5.60); WHITE BLOOD COUNT 16.7 K/mm3 (4.0-10.0)
[2021-03-18 13:15] LABS: ALBUMIN 3.7 g/dl (3.4-5.0); CALCIUM 8.9 mg/dL (8.5-10.1)
[2021-03-18 13:18] LABS: CREATININE 1.7 mg/dL (0.55-1.3)
[2021-03-18 13:20] LABS: BILIRUBIN,TOTAL 1.5 mg/dL (0.2-1); TOT PROT 7.9 g/dl (6.4-8.2)
[2021-03-18 15:25] VITALS: BP 114/65; PULSE 76; TEMP 98
== END 2021-03-18 15:28 | disposition home or self-care (01) ==
LOC: JER 09:33
DX: R31.9 Hematuria, unspecified (principal); R30.0 Dysuria
CPT/HCPCS: 36415; 76856-TC; 80053; 81003; 85025; 87086; 87186; 93005; 93010; 99285-25

== ENCOUNTER 2021-03-20 18:03 | Emergency (ER) | payer BC ==
[2021-03-20 18:20] VITALS: BP 112/78; PULSE 74; TEMP 97.8; BMI 40.1
== END 2021-03-20 21:28 | disposition left against medical advice (07) ==
LOC: JER 18:03
DX: N39.0 Urinary tract infection, site not specified (principal)
CPT/HCPCS: 99281-25

== ENCOUNTER 2021-11-20 02:58 | Emergency (ER) | payer OTHER, BC ==
[2021-11-20 03:05] VITALS: BMI 40.8
[2021-11-20 03:54] LABS: BASO % 0.7 % (0-2.0); EOS % 1.9 % (0-4.5); HEMATOCRIT 42.6 % (35.4-49); HEMOGLOBIN 14.6 GM/dL (11.7-16.9); LYMPH % 25.5 % (8-40); MCH 33.4 pg (25.7-33.7); MCHC 34.3 g/dl (32.0-35.9); MEAN CELL VOLUME 97.5 fl (80-96); MEAN PLT VOLUME 7.4 fl (7.5-11.1); MONO % 5.7 % (3.8-10.2); NEUT % 66.2 % (42.8-82.8); PLATELET COUNT 229 10^3/uL (134-434); RBC 4.37 M/mm3 (4.00-5.60); RDW 13.8 % (11.9-15.9); WHITE BLOOD COUNT 6.9 K/mm3 (4.0-10.0)
[2021-11-20 04:22] LABS: ALBUMIN 3.5 g/dl (3.4-5.0); BLOOD UREA NITROGEN 24.3 mg/dL (7-18); CALCIUM 8.9 mg/dL (8.5-10.1)
[2021-11-20 04:26] LABS: CREATININE 1.5 mg/dL (0.55-1.3)
[2021-11-20 04:27] LABS: TOT PROT 7.9 g/dl (6.4-8.2)
[2021-11-20] MEDS ORDERED: SODIUM CHLORIDE 0.9% 500 ML INFUS.BAG IV ONE (04:36)
[2021-11-20 05:13] LABS: BILIRUBIN,TOTAL 0.6 mg/dL (0.2-1)
[2021-11-20 05:49] VITALS: BP 140/80; PULSE 45; RESP 16
[2021-11-20 05:52] VITALS: TEMP 98.2
== END 2021-11-20 05:52 | disposition home or self-care (01) ==
LOC: JER 02:58
DX: R07.89 Other chest pain (principal)
CPT/HCPCS: 36415; 71045-TC-FY; 80053; 84484; 85025; 93005; 93010; 99285-25

== ENCOUNTER 2021-12-31 15:00 | Observation (INO) | payer OTHER, BC ==
[2021-12-31 18:35] LABS: BASO % 0.5 % (0-2.0); EOS % 0.7 % (0-4.5); HEMATOCRIT 43.2 % (35.4-49); HEMOGLOBIN 14.8 GM/dL (11.7-16.9); LYMPH % 27.4 % (8-40); MCHC 34.2 g/dl (32.0-35.9); MEAN CELL VOLUME 99.4 fl (80-96); MEAN PLT VOLUME 7.9 fl (7.5-11.1); MONO % 5.8 % (3.8-10.2); NEUT % 65.6 % (42.8-82.8); PLATELET COUNT 230 10^3/uL (134-434); RBC 4.35 M/mm3 (4.00-5.60); RDW 14.1 % (11.9-15.9); WHITE BLOOD COUNT 8.9 K/mm3 (4.0-10.0)
[2021-12-31 18:47] LABS: ALBUMIN 3.7 g/dl (3.4-5.0); CALCIUM 9.2 mg/dL (8.5-10.1)
[2021-12-31 18:48] LABS: BLOOD UREA NITROGEN 26.4 mg/dL (7-18)
[2021-12-31 18:50] LABS: CREATININE 1.5 mg/dL (0.55-1.3)
[2021-12-31 18:52] LABS: BILIRUBIN,TOTAL 0.8 mg/dL (0.2-1); TOT PROT 7.9 g/dl (6.4-8.2)
[2021-12-31] MEDS ORDERED: ACETAMINOPHEN 325 MG TABLET (FP) PO PRN (19:21)
[2021-12-31] MEDS ORDERED: ACETAMINOPHEN 1000 MG/100 ML BAG IVPB PRN (19:30)
[2021-12-31 21:00] LABS: MAGNESIUM 2.2 mg/dL (1.8-2.4)
[2021-12-31 22:02] LABS: PH,URINE 5.5 (5.0-8.0); URINE APPEARANCE CLEAR; URINE BILIRUBIN NEGATIVE (NEGATIVE); URINE COLOR YELLOW; URINE GLUCOSE (UA) NEGATIVE (NEGATIVE); URINE KETONE NEGATIVE (NEGATIVE); URINE PROTEIN 2+ (NEGATIVE); URINE UROBILINOGEN 0.2 mg/dL (0.2-1.0)
[2021-12-31 22:03] LABS: URINE LEUK ESTERASE NEGATIVE (NEGATIVE); URINE NITRITE NEGATIVE (NEGATIVE)
[2021-12-31 22:07] LABS: EPI CELLS 2 /uL (0-25.1); HYALINE CASTS 0 /uL (0-3.1); URINE BACTERIA 5 /uL (0-1359); URINE RBC 101 /uL (0-23.9); URINE WBC 18 /uL (0-25.8)
[2021-12-31] MEDS: ATORVASTATIN CA 10 MG TABLET (FP) PO SCH (23:00)
[2021-12-31] MEDS: LISINOPRIL 10 MG TABLET PO SCH (23:00)
[2022-01-01 00:50] VITALS: BMI 39.1
[2022-01-01] MEDS ORDERED: NITROGLYCERIN SUBLINGUAL 1/150 0.4 MG TAB SL PRN (06:05)
[2022-01-01 08:09] LABS: BASO % 0.5 % (0-2.0); EOS % 1.3 % (0-4.5); HEMATOCRIT 42.3 % (35.4-49); HEMOGLOBIN 14.2 GM/dL (11.7-16.9); LYMPH % 28.4 % (8-40); MCH 33.1 pg (25.7-33.7); MCHC 33.5 g/dl (32.0-35.9); MEAN CELL VOLUME 98.9 fl (80-96); MEAN PLT VOLUME 8.2 fl (7.5-11.1); MONO % 8.1 % (3.8-10.2); NEUT % 61.7 % (42.8-82.8); PLATELET COUNT 219 10^3/uL (134-434); RBC 4.28 M/mm3 (4.00-5.60); RDW 13.8 % (11.9-15.9); WHITE BLOOD COUNT 6.1 K/mm3 (4.0-10.0)
[2022-01-01 08:16] LABS: INR 1.16 (0.83-1.09); PROTHROMBIN TIME (PATIENT) 13.4 SEC (9.7-13.0)
[2022-01-01 08:18] LABS: ACTIVATED PTT 29.9 SECONDS (25.2-36.5)
[2022-01-01 08:28] LABS: CALCIUM 8.9 mg/dL (8.5-10.1)
[2022-01-01 08:29] LABS: BLOOD UREA NITROGEN 24.3 mg/dL (7-18)
[2022-01-01 08:32] LABS: CREATININE 1.3 mg/dL (0.55-1.3)
[2022-01-01] MEDS: VITAMIN B COMPLEX W/C COMBO TABLET (FP) PO SCH (10:50)
[2022-01-01] MEDS: ASPIRIN COATED 81 MG TABLET.EC PO SCH (10:50)
[2022-01-01] MEDS: LISINOPRIL 10 MG TABLET PO SCH ×2 (10:50→22:06)
[2022-01-01] MEDS: CHOLECALCIFEROL (VIT D3) 1,000 UNIT (25 MCG) TABLET PO SCH (10:50)
[2022-01-01] MEDS: ALLOPURINOL 300 MG TABLET (FP) PO SCH (10:51)
[2022-01-01] MEDS: PYRIDOXINE HCL (B-6) 100 MG TABLET PO SCH (10:51)
[2022-01-01] MEDS: ATORVASTATIN CA 10 MG TABLET (FP) PO SCH (22:06)
[2022-01-01] MEDS: OXYBUTYNIN CHLORIDE 5 MG TABLET PO SCH (23:08)
[2022-01-02] MEDS: LISINOPRIL 10 MG TABLET PO SCH ×2 (10:08→21:20)
[2022-01-02] MEDS: ASPIRIN COATED 81 MG TABLET.EC PO SCH (10:08)
[2022-01-02] MEDS: ALLOPURINOL 300 MG TABLET (FP) PO SCH (10:08)
[2022-01-02] MEDS: CHOLECALCIFEROL (VIT D3) 1,000 UNIT (25 MCG) TABLET PO SCH (10:08)
[2022-01-02] MEDS: PYRIDOXINE HCL (B-6) 100 MG TABLET PO SCH (10:25)
[2022-01-02] MEDS: VITAMIN B COMPLEX W/C COMBO TABLET (FP) PO SCH (10:25)
[2022-01-02] MEDS: POLYETHYLENE GLYCOL (HEALTHYLAX) 3350 17 GM PACKET PO SCH ×2 (11:52→21:19)
[2022-01-02] MEDS: ATORVASTATIN CA 10 MG TABLET (FP) PO SCH (21:20)
[2022-01-02] MEDS: OXYBUTYNIN CHLORIDE 5 MG TABLET PO SCH (21:20)
[2022-01-02] MEDS ORDERED: SENNOSIDES 8.6MG TABLET (FP) PO SCH (22:00)
[2022-01-03 09:44] VITALS: BP 126/83; PULSE 60; RESP 16; TEMP 98
[2022-01-03] MEDS: CHOLECALCIFEROL (VIT D3) 1,000 UNIT (25 MCG) TABLET PO SCH (09:45)
[2022-01-03] MEDS: ASPIRIN COATED 81 MG TABLET.EC PO SCH (09:45)
[2022-01-03] MEDS: POLYETHYLENE GLYCOL (HEALTHYLAX) 3350 17 GM PACKET PO SCH (09:45)
[2022-01-03] MEDS: LISINOPRIL 10 MG TABLET PO SCH (09:45)
[2022-01-03] MEDS: ALLOPURINOL 300 MG TABLET (FP) PO SCH (09:45)
[2022-01-03] MEDS: VITAMIN B COMPLEX W/C COMBO TABLET (FP) PO SCH (09:46)
[2022-01-03] MEDS: PYRIDOXINE HCL (B-6) 100 MG TABLET PO SCH (09:46)
== END 2022-01-03 12:00 | disposition home or self-care (01) ==
LOC: JER 15:00 → JERBED 18:21 → J4W 23:35
PROVIDERS: ADMIT Internal Medicine; ATTEND Internal Medicine
DX: I12.9 Hypertensive chronic kidney disease with stage 1 through stage 4 chronic kidney disease, or unspecified chronic kidney disease (principal); G89.29 Other chronic pain; K76.0 Fatty (change of) liver, not elsewhere classified; N18.9 Chronic kidney disease, unspecified; M10.9 Gout, unspecified; Q61.3 Polycystic kidney, unspecified; E66.8 Other obesity; Z68.39 Body mass index [BMI] 39.0-39.9, adult; Z88.0 Allergy status to penicillin; Z91.048 Other nonmedicinal substance allergy status
CPT/HCPCS: 36415; 71046-TC-FY; 76700-TC; 80048; 80053; 81003; 83690; 83735; 84484; 85025; 85610; 85730; 87086; 93005; 93010; 99285-25; C9803-CS; G0378; U0003; U0005

== ENCOUNTER 2022-03-06 18:06 | Emergency (ER) | payer OTHER, BC ==
[2022-03-06 18:24] VITALS: BP 137/79; PULSE 80; RESP 16; TEMP 98.8; BMI 38.7
== END 2022-03-06 21:02 | disposition home or self-care (01) ==
LOC: JER 18:06
DX: U07.1 COVID-19 (principal); R05.1 Acute cough; R09.81 Nasal congestion
CPT/HCPCS: 0241U-QW; 71046-TC-FY; 99284-25

== ENCOUNTER 2022-10-08 10:08 | Emergency (ER) | payer OTHER, BC ==
[2022-10-08 10:25] VITALS: BP 133/80; PULSE 60; RESP 18; TEMP 97.8; BMI 35.9
[2022-10-08] MEDS ORDERED: IBUPROFEN 400 MG TABLET (FP) PO ONE ×2 (11:01→11:04)
[2022-10-08] MEDS ORDERED: ACETAMINOPHEN 500 MG TABLET (FP) PO ONE (11:14)
[2022-10-08] MEDS ORDERED: ACETAMINOPHEN 325 MG TABLET (FP) ONE (11:19)
== END 2022-10-08 13:05 | disposition home or self-care (01) ==
LOC: JER 10:08
DX: M79.672 Pain in left foot (principal); R22.42 Localized swelling, mass and lump, left lower limb
CPT/HCPCS: 73630-TC-LT; 99283-25

== ENCOUNTER 2023-03-04 23:13 | Emergency (ER) | payer OTHER, BC ==
[2023-03-04 23:25] VITALS: BP 118/73; PULSE 60; RESP 18; TEMP 97.9; BMI 35.9
[2023-03-05] MEDS ORDERED: ACETAMINOPHEN 1000 MG/100 ML BAG IVPB ONE (00:23)
[2023-03-05] MEDS ORDERED: ACETAMINOPHEN INJECTION 100 ML IVPB ONE (00:25)
[2023-03-05 01:00] LABS: BASO % 0.4 % (0-2.0); EOS % 2.2 % (0-4.5); HEMOGLOBIN 13.6 GM/dL (11.7-16.9); LYMPH % 27.3 % (8-40); MCH 34.4 pg (25.7-33.7); MCHC 34.9 g/dl (32.0-35.9); MEAN CELL VOLUME 98.7 fl (80-96); MEAN PLT VOLUME 7.9 fl (7.5-11.1); MONO % 7.7 % (3.8-10.2); NEUT % 62.4 % (42.8-82.8); PLATELET COUNT 277 10^3/uL (134-434); RBC 3.96 M/mm3 (4.00-5.60); WHITE BLOOD COUNT 7.9 K/mm3 (4.0-10.0)
[2023-03-05 01:18] LABS: POTASSIUM 4.3 mmol/L (3.5-5.1)
[2023-03-05 01:21] LABS: ALBUMIN 3.4 g/dl (3.4-5.0); BLOOD UREA NITROGEN 26.1 mg/dL (7-18); CALCIUM 8.4 mg/dL (8.5-10.1)
[2023-03-05 01:24] LABS: CREATININE 1.8 mg/dL (0.55-1.3)
[2023-03-05 01:27] LABS: BILIRUBIN,TOTAL 0.8 mg/dL (0.2-1); TOT PROT 7.6 g/dl (6.4-8.2)
[2023-03-05 01:42] LABS: URINE APPEARANCE CLEAR; URINE BILIRUBIN NEGATIVE (NEGATIVE); URINE COLOR YELLOW; URINE GLUCOSE (UA) NEGATIVE (NEGATIVE); URINE KETONE NEGATIVE (NEGATIVE); URINE PROTEIN TRACE (NEGATIVE)
[2023-03-05 01:43] LABS: URINE LEUK ESTERASE TRACE (NEGATIVE); URINE NITRITE NEGATIVE (NEGATIVE); URINE UROBILINOGEN 0.2 mg/dL (0.2-1.0)
== END 2023-03-05 04:01 | disposition home or self-care (01) ==
LOC: JER 23:13
PROC: 3E033NZ Introduction of Analgesics, Hypnotics, Sedatives into Peripheral Vein, Percutaneous Approach (ICD-10-PCS; principal; 2023-03-05)
DX: R10.30 Lower abdominal pain, unspecified (principal); R00.1 Bradycardia, unspecified; R07.89 Other chest pain; K57.92 Diverticulitis of intestine, part unspecified, without perforation or abscess without bleeding
CPT/HCPCS: 36415; 71045-TC-FY; 74176-TC; 80053; 81003; 83690; 84484; 85025; 87086; 93005; 93010; 99285-25

== ENCOUNTER 2023-03-09 14:39 | Inpatient (IN) | payer OTHER, BC ==
[2023-03-09] MEDS ORDERED: FAMOTIDINE 20 MG/50 ML IVPB 20 MG/50 ML MG IVPB ONE (15:53)
[2023-03-09] MEDS ORDERED: ONDANSETRON 4 MG/2 ML VIAL IVPUSH ONE ×2 (15:53→20:16)
[2023-03-09] MEDS ORDERED: CIPROFLOXACIN 400 MG/D5W 400 MG/200 ML IVPB IVPB ONE (15:54)
[2023-03-09] MEDS ORDERED: ONDANSETRON 4 MG/2 ML VIAL ONE ×2 (16:28→20:27)
[2023-03-09] MEDS ORDERED: FAMOTIDINE 10 MG/ML VIAL IVPB ONE (16:29)
[2023-03-09 17:33] LABS: BASO % 0.6 % (0-2.0); EOS % 0.5 % (0-4.5); HEMATOCRIT 39.1 % (35.4-49); HEMOGLOBIN 13.8 GM/dL (11.7-16.9); LYMPH % 17.5 % (8-40); MCH 34.2 pg (25.7-33.7); MCHC 35.3 g/dl (32.0-35.9); MEAN PLT VOLUME 8.1 fl (7.5-11.1); MONO % 7.5 % (3.8-10.2); NEUT % 73.9 % (42.8-82.8); PLATELET COUNT 296 10^3/uL (134-434); RBC 4.03 M/mm3 (4.00-5.60); RDW 13.5 % (11.9-15.9); WHITE BLOOD COUNT 7.2 K/mm3 (4.0-10.0)
[2023-03-09 17:51] LABS: POTASSIUM 4.5 mmol/L (3.5-5.1)
[2023-03-09 17:53] LABS: CALCIUM 8.8 mg/dL (8.5-10.1)
[2023-03-09 17:54] LABS: ALBUMIN 3.5 g/dl (3.4-5.0); BLOOD UREA NITROGEN 22.6 mg/dL (7-18); MAGNESIUM 2.1 mg/dL (1.8-2.4)
[2023-03-09 17:57] LABS: CREATININE 2.2 mg/dL (0.55-1.3)
[2023-03-09 17:58] LABS: BILIRUBIN,TOTAL 0.8 mg/dL (0.2-1); TOT PROT 7.5 g/dl (6.4-8.2)
[2023-03-09] MEDS ORDERED: LACTATED RINGERS SOLUTION 1000 ML INFUS.BAG IV ONE (18:07)
[2023-03-09] MEDS ORDERED: ACETAMINOPHEN 1000 MG/100 ML BAG IVPB ONE (20:16)
[2023-03-09] MEDS ORDERED: ACETAMINOPHEN INJECTION 100 ML IVPB ONE (21:01)
[2023-03-10 02:00] VITALS: BMI 36.1
[2023-03-10 08:08] LABS: BASO % 0.9 % (0-2.0); EOS % 1.2 % (0-4.5); HEMATOCRIT 38.2 % (35.4-49); HEMOGLOBIN 13.5 GM/dL (11.7-16.9); LYMPH % 24.7 % (8-40); MCH 34.3 pg (25.7-33.7); MCHC 35.2 g/dl (32.0-35.9); MEAN CELL VOLUME 97.4 fl (80-96); MEAN PLT VOLUME 7.9 fl (7.5-11.1); MONO % 9.7 % (3.8-10.2); NEUT % 63.5 % (42.8-82.8); PLATELET COUNT 287 10^3/uL (134-434); RBC 3.93 M/mm3 (4.00-5.60); WHITE BLOOD COUNT 7.6 K/mm3 (4.0-10.0)
[2023-03-10 08:23] LABS: INR 1.38 (0.83-1.09); PROTHROMBIN TIME (PATIENT) 15.9 SEC (9.7-13.0)
[2023-03-10 08:25] LABS: ACTIVATED PTT 33.7 SECONDS (25.2-36.5)
[2023-03-10 08:29] LABS: POTASSIUM 4.3 mmol/L (3.5-5.1)
[2023-03-10 08:31] LABS: CALCIUM 9.3 mg/dL (8.5-10.1)
[2023-03-10 08:32] LABS: BLOOD UREA NITROGEN 20.6 mg/dL (7-18); MAGNESIUM 2.4 mg/dL (1.8-2.4)
[2023-03-10 08:34] LABS: CREATININE 2.1 mg/dL (0.55-1.3); PHOSPHOROUS 2.8 mg/dL (2.5-4.9)
[2023-03-10] MEDS ORDERED: TRIMETHOBENZAMIDE HCL 200MG/2ML INJ IM PRN (09:59)
[2023-03-10] MEDS ORDERED: PYRIDOXINE HCL (B-6) 100 MG TABLET PO SCH (10:00)
[2023-03-10] MEDS ORDERED: ACETAMINOPHEN 325 MG TABLET (FP) PO PRN (10:00)
[2023-03-10] MEDS ORDERED: TOLVAPTAN 15 MG TABLET PO SCH (10:30)
[2023-03-10] MEDS: LISINOPRIL 10 MG TABLET PO SCH ×2 (10:43→21:43)
[2023-03-10] MEDS: amLODIPine BESYLATE 5 MG TABLET (FP) PO SCH (10:43)
[2023-03-10] MEDS: CHOLECALCIFEROL (VIT D3) 1,000 UNIT (25 MCG) TABLET PO SCH (10:43)
[2023-03-10] MEDS: CYANOCOBALAMIN 1,000 MCG TABLET (FP) PO SCH ×2 (10:43→11:16)
[2023-03-10] MEDS: busPIRone HCL 5 MG TABLET PO SCH (10:43)
[2023-03-10] MEDS: ALLOPURINOL 300 MG TABLET (FP) PO SCH (10:44)
[2023-03-10] MEDS: VITAMIN B COMPLEX W/C COMBO TABLET (FP) PO SCH ×2 (10:47→11:16)
[2023-03-10] MEDS: PYRIDOXINE HCL (B-6) 50 MG TABLET (FP) PO SCH (11:17)
[2023-03-10] MEDS ORDERED: SODIUM CHLORIDE 0.45% 1,000 ML IV SCH (14:45)
[2023-03-10] MEDS: OXYBUTYNIN CHLORIDE 5 MG TABLET PO SCH (21:43)
[2023-03-10] MEDS: ATORVASTATIN CA 10 MG TABLET (FP) PO SCH (21:44)
[2023-03-11 05:12] VITALS: RESP 18
[2023-03-11] MEDS: ALLOPURINOL 300 MG TABLET (FP) PO SCH (09:21)
[2023-03-11] MEDS: LISINOPRIL 10 MG TABLET PO SCH ×2 (09:21→21:39)
[2023-03-11] MEDS: busPIRone HCL 5 MG TABLET PO SCH (09:21)
[2023-03-11] MEDS: amLODIPine BESYLATE 5 MG TABLET (FP) PO SCH (09:21)
[2023-03-11] MEDS: VITAMIN B COMPLEX W/C COMBO TABLET (FP) PO SCH (09:22)
[2023-03-11] MEDS: CYANOCOBALAMIN 1,000 MCG TABLET (FP) PO SCH (09:22)
[2023-03-11] MEDS: PYRIDOXINE HCL (B-6) 50 MG TABLET (FP) PO SCH (09:22)
[2023-03-11] MEDS: CHOLECALCIFEROL (VIT D3) 1,000 UNIT (25 MCG) TABLET PO SCH (09:22)
[2023-03-11 10:10] LABS: POTASSIUM 4.2 mmol/L (3.5-5.1)
[2023-03-11 10:17] LABS: BLOOD UREA NITROGEN 20.8 mg/dL (7-18); CALCIUM 8.7 mg/dL (8.5-10.1)
[2023-03-11 10:22] LABS: BILIRUBIN,TOTAL 0.7 mg/dL (0.2-1); TOT PROT 6.8 g/dl (6.4-8.2)
[2023-03-11] MEDS ORDERED: ENOXAPARIN NA (PORCINE) 30 MG/0.3 ML DISP.SYRIN SQ SCH (12:00)
[2023-03-11] MEDS: SODIUM CHLORIDE 1,000 ML IV SCH (17:02)
[2023-03-11] MEDS: ATORVASTATIN CA 10 MG TABLET (FP) PO SCH (21:39)
[2023-03-11] MEDS: OXYBUTYNIN CHLORIDE 5 MG TABLET PO SCH (21:39)
[2023-03-12 09:30] LABS: BASO % 0.6 % (0-2.0); EOS % 1.3 % (0-4.5); HEMOGLOBIN 12.3 GM/dL (11.7-16.9); LYMPH % 28.2 % (8-40); MCHC 33.2 g/dl (32.0-35.9); MEAN CELL VOLUME 99.4 fl (80-96); MEAN PLT VOLUME 7.7 fl (7.5-11.1); MONO % 8.2 % (3.8-10.2); NEUT % 61.7 % (42.8-82.8); PLATELET COUNT 281 10^3/uL (134-434); RBC 3.73 M/mm3 (4.00-5.60); RDW 13.6 % (11.9-15.9)
[2023-03-12 09:41] LABS: POTASSIUM 4.2 mmol/L (3.5-5.1)
[2023-03-12 09:57] LABS: ALBUMIN 2.8 g/dl (3.4-5.0); CALCIUM 8.5 mg/dL (8.5-10.1)
[2023-03-12 09:58] LABS: BLOOD UREA NITROGEN 17.7 mg/dL (7-18)
[2023-03-12 10:00] LABS: TOT PROT 6.3 g/dl (6.4-8.2)
[2023-03-12] MEDS ORDERED: ENOXAPARIN NA (PORCINE) 30 MG/0.3 ML DISP.SYRIN SQ SCH (10:00)
[2023-03-12 10:01] LABS: BILIRUBIN,TOTAL 0.4 mg/dL (0.2-1); CREATININE 1.9 mg/dL (0.55-1.3)
[2023-03-12] MEDS: amLODIPine BESYLATE 5 MG TABLET (FP) PO SCH (10:24)
[2023-03-12] MEDS: LISINOPRIL 10 MG TABLET PO SCH ×2 (10:25→21:44)
[2023-03-12] MEDS: CHOLECALCIFEROL (VIT D3) 1,000 UNIT (25 MCG) TABLET PO SCH (10:26)
[2023-03-12] MEDS: busPIRone HCL 5 MG TABLET PO SCH (10:27)
[2023-03-12] MEDS: POLYETHYLENE GLYCOL (HEALTHYLAX) 3350 17 GM PACKET PO SCH (10:56)
[2023-03-12] MEDS: ALLOPURINOL 300 MG TABLET (FP) PO SCH (10:57)
[2023-03-12] MEDS: CYANOCOBALAMIN 1,000 MCG TABLET (FP) PO SCH (10:58)
[2023-03-12] MEDS: VITAMIN B COMPLEX W/C COMBO TABLET (FP) PO SCH (11:11)
[2023-03-12] MEDS: PYRIDOXINE HCL (B-6) 50 MG TABLET (FP) PO SCH (11:11)
[2023-03-12] MEDS: SODIUM CHLORIDE 1,000 ML IV SCH ×2 (14:20→21:44)
[2023-03-12] MEDS: ATORVASTATIN CA 10 MG TABLET (FP) PO SCH (21:44)
[2023-03-12] MEDS: OXYBUTYNIN CHLORIDE 5 MG TABLET PO SCH (21:44)
[2023-03-13] MEDS: amLODIPine BESYLATE 5 MG TABLET (FP) PO SCH (09:01)
[2023-03-13] MEDS: busPIRone HCL 5 MG TABLET PO SCH (09:01)
[2023-03-13] MEDS: CYANOCOBALAMIN 1,000 MCG TABLET (FP) PO SCH (09:02)
[2023-03-13] MEDS: ALLOPURINOL 300 MG TABLET (FP) PO SCH (09:02)
[2023-03-13] MEDS: VITAMIN B COMPLEX W/C COMBO TABLET (FP) PO SCH (09:02)
[2023-03-13] MEDS: CHOLECALCIFEROL (VIT D3) 1,000 UNIT (25 MCG) TABLET PO SCH (09:02)
[2023-03-13] MEDS: LISINOPRIL 10 MG TABLET PO SCH (09:02)
[2023-03-13] MEDS: POLYETHYLENE GLYCOL (HEALTHYLAX) 3350 17 GM PACKET PO SCH (09:03)
[2023-03-13] MEDS: PYRIDOXINE HCL (B-6) 50 MG TABLET (FP) PO SCH (09:03)
[2023-03-13 11:52] LABS: EPI CELLS 2 /uL (0-25.1); HYALINE CASTS 0 /uL (0-3.1); PH,URINE 5.5 (5.0-8.0); URINE APPEARANCE CLEAR; URINE BACTERIA 2 /uL (0-1359); URINE BILIRUBIN NEGATIVE (NEGATIVE); URINE COLOR YELLOW; URINE GLUCOSE (UA) NEGATIVE (NEGATIVE); URINE KETONE NEGATIVE (NEGATIVE); URINE LEUK ESTERASE NEGATIVE (NEGATIVE); URINE NITRITE NEGATIVE (NEGATIVE); URINE PROTEIN 1+ (NEGATIVE); URINE RBC 13 /uL (0-23.9); URINE UROBILINOGEN 0.2 mg/dL (0.2-1.0); URINE WBC 7 /uL (0-25.8)
[2023-03-13 12:08] VITALS: BP 116/83; PULSE 63; TEMP 98.3
== END 2023-03-13 14:00 | disposition home or self-care (01) | DRG 392 ==
LOC: JER 14:39 → JERBED 19:54 → J6S 23:56
PROVIDERS: ADMIT Internal Medicine; ATTEND Internal Medicine
DX: K57.32 Diverticulitis of large intestine without perforation or abscess without bleeding (principal); Q61.2 Polycystic kidney, adult type; N17.9 Acute kidney failure, unspecified; N13.30 Unspecified hydronephrosis; E87.1 Hypo-osmolality and hyponatremia; E78.5 Hyperlipidemia, unspecified; N40.0 Benign prostatic hyperplasia without lower urinary tract symptoms; F41.9 Anxiety disorder, unspecified; M10.9 Gout, unspecified; M54.50 Low back pain, unspecified; I12.9 Hypertensive chronic kidney disease with stage 1 through stage 4 chronic kidney disease, or unspecified chronic kidney disease; N18.9 Chronic kidney disease, unspecified
CPT/HCPCS: 36415; 71046-TC-FY; 74021-TC-FY; 74176-TC; 76705-TC; 80048; 80053; 81003; 82550; 82570; 83605; 83690; 83735; 84100; 84156; 84484; 85025; 85610; 85730; 86140; 86704; 86803; 87340; 87517; 93005; 93010; 99285-25

== ENCOUNTER 2023-03-29 10:58 | Emergency (ER) | payer OTHER, BC ==
[2023-03-29 11:16] VITALS: BP 157/80; PULSE 57; RESP 18; TEMP 98.2; BMI 33.7
[2023-03-29 13:11] LABS: BASO % 0.9 % (0-2.0); EOS % 1.1 % (0-4.5); HEMATOCRIT 39.5 % (35.4-49); HEMOGLOBIN 13.3 GM/dL (11.7-16.9); LYMPH % 24.4 % (8-40); MCH 33.9 pg (25.7-33.7); MCHC 33.5 g/dl (32.0-35.9); MEAN CELL VOLUME 101.2 fl (80-96); MEAN PLT VOLUME 7.5 fl (7.5-11.1); MONO % 5.7 % (3.8-10.2); NEUT % 67.9 % (42.8-82.8); PLATELET COUNT 248 10^3/uL (134-434); RBC 3.91 M/mm3 (4.00-5.60); RDW 14.3 % (11.9-15.9)
[2023-03-29 13:30] LABS: POTASSIUM 4.5 mmol/L (3.5-5.1)
[2023-03-29 13:32] LABS: ALBUMIN 3.3 g/dl (3.4-5.0); BLOOD UREA NITROGEN 25.3 mg/dL (7-18); CALCIUM 8.8 mg/dL (8.5-10.1)
[2023-03-29 13:35] LABS: CREATININE 1.5 mg/dL (0.55-1.3)
[2023-03-29 13:37] LABS: BILIRUBIN,TOTAL 0.8 mg/dL (0.2-1); TOT PROT 7.1 g/dl (6.4-8.2)
== END 2023-03-29 15:34 | disposition home or self-care (01) ==
LOC: JER 10:58
DX: R42 Dizziness and giddiness (principal); R07.9 Chest pain, unspecified; R51.9 Headache, unspecified
CPT/HCPCS: 36415; 80053; 84484; 85025; 93005; 93010; 99284-25

== ENCOUNTER 2023-06-27 04:31 | Day surgery (SDC) | payer OTHER, BC ==
[2023-06-26 11:12] VITALS: BMI 35.6
[2023-06-27 10:14] VITALS: TEMP 98.5
[2023-06-27 12:35] VITALS: RESP 18
[2023-06-27 13:21] VITALS: BP 122/68; PULSE 52
== END 2023-06-27 13:00 | disposition home or self-care (01) ==
LOC: JASU-ENDO 04:31
PROVIDERS: ATTEND Internal Medicine Gastroenterology
PROC: 0DBK8ZX Excision of Ascending Colon, Via Natural or Artificial Opening Endoscopic, Diagnostic (ICD-10-PCS; principal; 2023-06-27 11:00)
DX: Z12.11 Encounter for screening for malignant neoplasm of colon (principal); D12.2 Benign neoplasm of ascending colon; K64.8 Other hemorrhoids; K57.30 Diverticulosis of large intestine without perforation or abscess without bleeding; Z86.010 Personal history of colon polyps
CPT/HCPCS: 88305-TC

== ENCOUNTER 2023-12-04 10:20 | Emergency (ER) | payer OTHER, BC ==
[2023-12-04 10:25] VITALS: RESP 18; BMI 35.9
[2023-12-04 12:39] LABS: BASO % 0.5 % (0-2.0); EOS % 0.7 % (0-4.5); HEMATOCRIT 43.3 % (35.4-49); HEMOGLOBIN 14.7 GM/dL (11.7-16.9); LYMPH % 26.3 % (8-40); MCH 34.2 pg (25.7-33.7); MEAN CELL VOLUME 100.5 fl (80-96); MEAN PLT VOLUME 8.4 fl (7.5-11.1); NEUT % 65.5 % (42.8-82.8); PLATELET COUNT 198 10^3/uL (134-434); RBC 4.31 M/mm3 (4.00-5.60); RDW 14.3 % (11.9-15.9); WHITE BLOOD COUNT 7.4 K/mm3 (4.0-10.0)
[2023-12-04 13:06] LABS: POTASSIUM 4.6 mmol/L (3.5-5.1)
[2023-12-04 13:07] LABS: ALBUMIN 4.1 g/dl (3.4-5.0); BLOOD UREA NITROGEN 28.4 mg/dL (7-18); CALCIUM 9.6 mg/dL (8.5-10.1)
[2023-12-04 13:11] LABS: CREATININE 2.1 mg/dL (0.55-1.3)
[2023-12-04 13:13] LABS: BILIRUBIN,TOTAL 0.9 mg/dL (0.2-1); TOT PROT 8.1 g/dl (6.4-8.2)
[2023-12-04] MEDS: SODIUM CHLORIDE 500 ML IV STA (13:45)
[2023-12-04 13:53] LABS: PH,URINE 5.5 (5.0-8.0); URINE APPEARANCE CLEAR; URINE BILIRUBIN NEGATIVE (NEGATIVE); URINE COLOR YELLOW; URINE GLUCOSE (UA) NEGATIVE (NEGATIVE); URINE KETONE NEGATIVE (NEGATIVE); URINE LEUK ESTERASE NEGATIVE (NEGATIVE); URINE NITRITE NEGATIVE (NEGATIVE); URINE PROTEIN TRACE (NEGATIVE); URINE UROBILINOGEN 0.2 mg/dL (0.2-1.0)
[2023-12-04 13:59] LABS: EPI CELLS 5.1 /uL (0-25.1); URINE RBC 5.9 /uL (0-23.9); URINE WBC 2.9 /uL (0-25.8)
[2023-12-04 15:03] VITALS: BP 144/92; PULSE 67; TEMP 98.4
== END 2023-12-04 17:21 | disposition home or self-care (01) ==
LOC: JER 10:20
PROC: 3E0337Z Introduction of Electrolytic and Water Balance Substance into Peripheral Vein, Percutaneous Approach (ICD-10-PCS; principal; 2023-12-04)
DX: R10.32 Left lower quadrant pain (principal); R11.0 Nausea; R19.7 Diarrhea, unspecified
CPT/HCPCS: 36415; 74176-TC; 80053; 81003; 85025; 87086; 99284-25

== ENCOUNTER 2024-06-10 11:36 | Inpatient (IN) | payer OTHER, BC ==
[2024-06-10 12:51] VITALS: BMI 35.2
[2024-06-10 13:33] LABS: BASO % 0.5 % (0-2.0); EOS % 0.5 % (0-4.5); HEMATOCRIT 43.3 % (35.4-49); LYMPH % 15.3 % (8-40); MCH 32.9 pg (25.7-33.7); MCHC 32.4 g/dl (32.0-35.9); MEAN CELL VOLUME 101.7 fl (80-96); NEUT % 78.7 % (42.8-82.8); PLATELET COUNT 224 10^3/uL (134-434); RBC 4.26 M/mm3 (4.00-5.60); RDW 14.9 % (11.9-15.9); WHITE BLOOD COUNT 8.1 K/mm3 (4.0-10.0)
[2024-06-10 13:41] LABS: INR 1.13 (0.83-1.09); PROTHROMBIN TIME (PATIENT) 12.4 SEC (9.7-13.0)
[2024-06-10 14:28] LABS: POTASSIUM 4.6 mmol/L (3.5-5.1)
[2024-06-10 14:30] LABS: CALCIUM 9.3 mg/dL (8.5-10.1)
[2024-06-10 14:31] LABS: ALBUMIN 3.9 g/dl (3.4-5.0); BLOOD UREA NITROGEN 38.8 mg/dL (7-18); MAGNESIUM 2.3 mg/dL (1.8-2.4)
[2024-06-10 14:34] LABS: CREATININE 1.9 mg/dL (0.55-1.3)
[2024-06-10 14:35] LABS: BILIRUBIN,TOTAL 0.7 mg/dL (0.2-1); TOT PROT 7.9 g/dl (6.4-8.2)
[2024-06-10] MEDS ORDERED: ASPIRIN 81 MG CHEWABLE TABLETS ONE (16:00)
[2024-06-10] MEDS: ASPIRIN COATED 81 MG TABLET.EC PO ONE (16:04)
[2024-06-10 16:24] LABS: HIV INTERPRETATION NEGATIVE (NEGATIVE)
[2024-06-10] MEDS ORDERED: HEPARIN NA (PORCINE) 5,000 UNITS/ML 1ML VIAL IVPUSH PRN ×2 (18:55)
[2024-06-10] MEDS ORDERED: HEPARIN INFUSION - 25,000 UNITS/500 ML INFUS.BAG IVPB ONE (19:41)
[2024-06-10] MEDS: HEPARIN INFUSION - 25,000 UNITS/500 ML INFUS.BAG IVPB SCH (20:07)
[2024-06-11] MEDS ORDERED: HEPARIN NA (PORCINE) 5,000 UNITS/ML 1ML VIAL ONE (05:46)
[2024-06-11] MEDS ORDERED: LISINOPRIL 5 MG TABLET ONE (13:34)
[2024-06-11] MEDS: LISINOPRIL 5 MG TABLET PO SCH (13:44)
[2024-06-11] MEDS: ATORVASTATIN CA 10 MG TABLET (FP) PO SCH (21:40)
[2024-06-11] MEDS: HEPARIN NA (PORCINE) 5,000 UNITS/ML 1ML VIAL SQ SCH (21:40)
[2024-06-12 08:25] LABS: BASO % 0.6 % (0-2.0); EOS % 1.9 % (0-4.5); HEMATOCRIT 38.7 % (35.4-49); HEMOGLOBIN 12.9 GM/dL (11.7-16.9); LYMPH % 27.5 % (8-40); MCH 33.5 pg (25.7-33.7); MCHC 33.5 g/dl (32.0-35.9); MEAN PLT VOLUME 8.7 fl (7.5-11.1); MONO % 7.2 % (3.8-10.2); NEUT % 62.8 % (42.8-82.8); PLATELET COUNT 190 10^3/uL (134-434); RBC 3.87 M/mm3 (4.00-5.60); RDW 14.6 % (11.9-15.9); WHITE BLOOD COUNT 5.6 K/mm3 (4.0-10.0)
[2024-06-12 08:43] LABS: POTASSIUM 4.4 mmol/L (3.5-5.1)
[2024-06-12 08:46] LABS: CALCIUM 8.8 mg/dL (8.5-10.1)
[2024-06-12 08:47] LABS: ALBUMIN 3.3 g/dl (3.4-5.0); BLOOD UREA NITROGEN 39.8 mg/dL (7-18)
[2024-06-12 08:51] LABS: BILIRUBIN,TOTAL 0.8 mg/dL (0.2-1); TOT PROT 6.9 g/dl (6.4-8.2)
[2024-06-12] MEDS ORDERED: REGADENOSON 0.4 MG/5 ML PRE-FILLED SYRINGE IVPUSH ONE (09:03)
[2024-06-12] MEDS: REGADENOSON 0.4 MG/5 ML PRE-FILLED SYRINGE IVPUSH ONE (09:30)
[2024-06-12] MEDS: SODIUM CHLORIDE 1,000 ML IV SCH (14:56)
[2024-06-13 07:52] LABS: HEMATOCRIT 38.7 % (35.4-49); HEMOGLOBIN 13.3 GM/dL (11.7-16.9); MCHC 34.3 g/dl (32.0-35.9); MEAN PLT VOLUME 8.7 fl (7.5-11.1); PLATELET COUNT 189 10^3/uL (134-434); RBC 3.91 M/mm3 (4.00-5.60); RDW 14.6 % (11.9-15.9); WHITE BLOOD COUNT 5.4 K/mm3 (4.0-10.0)
[2024-06-13] MEDS: LISINOPRIL 10 MG TABLET PO SCH (09:55)
[2024-06-13] MEDS: busPIRone HCL 5 MG TABLET PO SCH (09:56)
[2024-06-13] MEDS: amLODIPine BESYLATE 5 MG TABLET (FP) PO SCH (09:56)
[2024-06-13] MEDS: ALLOPURINOL 300 MG TABLET (FP) PO SCH (10:34)
[2024-06-13 15:22] VITALS: BP 137/96; PULSE 58; RESP 17; TEMP 98.1
[2024-06-13] MEDS ORDERED: OXYBUTYNIN CHLORIDE 5 MG TABLET PO SCH (22:00)
== END 2024-06-13 16:05 | disposition short-term general hospital (02) | DRG 303 ==
LOC: JER 11:36 → JERBED 15:59 → J4W 06-11 19:10
PROVIDERS: ADMIT Internal Medicine; ATTEND Internal Medicine
DX: I25.9 Chronic ischemic heart disease, unspecified (principal); R07.89 Other chest pain; E78.5 Hyperlipidemia, unspecified; R00.1 Bradycardia, unspecified; R42 Dizziness and giddiness; G47.30 Sleep apnea, unspecified; F41.9 Anxiety disorder, unspecified; R55 Syncope and collapse; I12.9 Hypertensive chronic kidney disease with stage 1 through stage 4 chronic kidney disease, or unspecified chronic kidney disease; N18.9 Chronic kidney disease, unspecified; N40.0 Benign prostatic hyperplasia without lower urinary tract symptoms; M54.50 Low back pain, unspecified; N28.1 Cyst of kidney, acquired; E66.9 Obesity, unspecified; Z68.35 Body mass index [BMI] 35.0-35.9, adult; M10.9 Gout, unspecified; F41.0 Panic disorder [episodic paroxysmal anxiety]; R79.89 Other specified abnormal findings of blood chemistry; K57.90 Diverticulosis of intestine, part unspecified, without perforation or abscess without bleeding
CPT/HCPCS: 36415; 71045-TC-FY; 78452-TC; 80053; 82550; 83735; 84484; 85025; 85027; 85610; 85730; 86803; 87389; 93005; 93010; 93017; 93306-TC; 99285-25; A9502; J1644; J2785